=== PATIENT | male | born 1945 | race Caucasian/White ===

== ENCOUNTER 2020-08-29 08:45 | Outpatient (REF) | payer MEDICARE, BC, SELFPAY ==
[2020-08-29 10:14] LABS: Cholesterol 171 mg/dL; HDL Cholesterol 76 mg/dL; LDL Cholesterol Calculated 80 mg/dl; Triglycerides 76 mg/dL
[2020-08-29 10:35] LABS: Free T4 (Free Thyroxine) 0.75 ng/dL (0.71-1.85); Prostate Specific Antigen Scr 1.45 ng/mL (<0.05-4.0); Thyroid Stimulating Hormone 2.76 uIU/mL (0.32-4.0)
[2020-08-29 10:51] LABS: Folate 15.2 ng/mL (> or = 4.0); Vitamin B12 784 pg/mL (200-900)
== END 2020-08-29 08:46 | disposition home or self-care (01) ==
LOC: HO.LAB 08:45
PROVIDERS: PCP Internal Medicine; Visit Provider Internal Medicine
DX: R35.0 Frequency of micturition (principal); N40.1 Benign prostatic hyperplasia with lower urinary tract symptoms; E78.00 Pure hypercholesterolemia, unspecified; Z12.5 Encounter for screening for malignant neoplasm of prostate
CPT/HCPCS: 36415; 80061; 82607; 82746; 84153; 84439; 84443

== ENCOUNTER → 2020-11-07 08:04 | Outpatient (BNV) | payer MEDICARE, BC, SELFPAY | PROVIDERS: PCP Internal Medicine; Visit Provider Internal Medicine Medical Oncology | DX: D72.819 Decreased white blood cell count, unspecified (principal); D63.8 Anemia in other chronic diseases classified elsewhere; Z86.718 Personal history of other venous thrombosis and embolism; Z79.82 Long term (current) use of aspirin | CPT/HCPCS: 99213; 99214 ==

== ENCOUNTER 2021-01-23 08:03 | Outpatient (REF) | payer MEDICARE, BC, SELFPAY ==
--- NOTE | 2021-01-29 13:21 | MHC.AU.ANO ---
Adult Audiological Evaluation Date of Visit: 01/23/21 Sys Dir Used: Not Applicable Reason for Appointment: Audiologic evaluation due to increasing difficulty understanding speech, particularly when watching television. Does patient feel they have a hearing loss?: Yes If Yes, Which Ear?: Both Ears When Was Hearing Difficulty First Noticed?: Approximately 2 years ago Has hearing been tested previously?: No Hearing Handicap Inventory: HHIE SCORE: 10 Based on HHIE score, patient has: Mild to moderate perceived hearing handicap Ear History: Family History of Hearing Loss?: Yes: Parents History of Ear Wax Buildup: Both Ears Ear used on the phone: Right Ear History of occupational noise exposure?: No History: History: No Medical History: Medical History: Heart Problems, History of 3 arterial stents Allergies: Itraconazole Medication List: Ompeprozole, Proscar/Finasteride, Atorvastatin, Atenolol, Aspirin, Multivitamin Otoscopy: Right Ear: Unremarkable Left Ear: Unremarkable Tympanometry: Tympanometry performed due to: To assess integrity of the middle ear system Right Ear: Hypercompliant Middle Ear System (Type Ad) Left Ear: Hypercompliant Middle Ear System (Type Ad) Otoacoustic Emissions Frequency Range Used: 1.6-8 kHz Right Ear Results: Absent Emissions Analysis: Reduced/Absent emissions suggest cochlear dysfunction Left Ear Results: Absent Emissions Analysis: Reduced/Absent emissions suggest cochlear dysfunction Hearing Evaluation: Transducer(s) Used: Insert Earphones Bone Conduction Method: Conventional Audiometry Stimuli Used: Pure Tones Right Ear: Description of Hearing: Normal hearing threshold at 250 Hz dropping to a severe high frequency sensorineural hearing loss Left Ear: Description of Hearing: Mild dropping to profound high frequency sensorineural hearing loss Speech Recognition Threshold (SRT): Method Used: Monitored Live Voice Stimuli Used: Spondee Words Right Ear: 30 dB HL Left Ear: 30 dB HL Word Discrimination: Method: Recorded Lists Word Lists Used: NU-6 Right Ear: 96% at 70 dB HL Left Ear: 96% at 70 dB HL Interpretation of Results: With the significant bilateral high frequency hearing loss, Roverto is likely able to hear; however, he may have difficulty understanding speech, particularly when background noise is present and/or someone is speaking from more than 6 feet. Recommendations: Trial with amplification is recommended. Medical clearance from a physician is required before fitting. Hearing protection should be used when around loud noise. - If Roverto would like to pursue hearing aids, he is advised to schedule a Hearing Aid Evaluation appointment. A [employer] brochure was provided today. - Discussed and provided a handout regarding Communication Strategies to use to improve speech understanding. Audiological re-evaluation in one year. Will send a reminder Diagnosis: Primary Diagnosis: H90.3 Bilateral Sensorineural Hearing Loss Services Performed: Comprehensive Audiological Evaluation (CPT 81517) Diagnostic Otoacoustic Emissions (CPT 36120, 26+TC) Tympanometry (CPT 37688) Signature: Provider: Lucretia Bautista, CCC-A
--- NOTE | 2021-01-29 13:26 | MHC.AU.MED ---
Medical Clearance for Hearing Instrumentation Date: 01/29/21 Patient Name: Roverto Pan Date of : 1945 Primary Care Provider: Referring Provider: Francisco Garcia MD We have seen your patient on 01/29/21 and have determined that they are a candidate for amplification (See accompanying report). Specifically, they would benefit from: Hearing aid use in both ears There is a statute that addresses Medical Evaluation Requirements prior to fitting a patient with a hearing aid. According to [place] statute 265 CMR:6.03(1), (a) General. Except as provided in 265 CMR 6.03(1)(b), a hearings reporter shall not sell a hearing aid unless the prospective user has presented to the hearings reporter a written statement signed by a licensed physician that states that the patient's hearing loss has been medically evaluated and the patient may be considered a candidate for a hearing aid. The medical evaluation must have taken place within the preceding six months. Please note: Due to the [place] Statute referenced above, we cannot accept a signature other than that of a licensed physician. [employer] and PA signatures cannot be accepted. I am in agreement with the above recommendation. There is no medical contraindication for hearing instrumentation. Physician Signature Date Physician Name (Printed)
== END 2021-01-23 08:04 | disposition home or self-care (01) ==
LOC: HO.SH 08:03
PROVIDERS: Visit Provider Internal Medicine
DX: H91.90 Unspecified hearing loss, unspecified ear (principal)
CPT/HCPCS: 92557; 92567; 92588

== ENCOUNTER 2021-02-20 08:38 | Outpatient (REF) | payer MEDICARE, BC, SELFPAY ==
[2021-02-20 10:14] LABS: Prostate Specific Antigen 1.21 ng/mL (<0.05-4.0)
== END 2021-02-20 08:39 | disposition home or self-care (01) ==
LOC: HO.LAB 08:38
PROVIDERS: PCP Internal Medicine; Referring Provider Internal Medicine; Visit Provider Nurse Practitioner Family
DX: Z12.5 Encounter for screening for malignant neoplasm of prostate (principal); R97.20 Elevated prostate specific antigen [PSA]
CPT/HCPCS: 36415; 84153

== ENCOUNTER → 2021-05-01 14:34 | Outpatient (BNVA) | payer MEDICARE, BC, SELFPAY | PROVIDERS: PCP Internal Medicine; Visit Provider Internal Medicine Cardiovascular Disease | DX: I13.10 Hypertensive heart and chronic kidney disease without heart failure, with stage 1 through stage 4 chronic kidney disease, or unspecified chronic kidney disease (principal); N18.31 Chronic kidney disease, stage 3a; R94.4 Abnormal results of kidney function studies; I25.10 Atherosclerotic heart disease of native coronary artery without angina pectoris; I10 Essential (primary) hypertension; E78.00 Pure hypercholesterolemia, unspecified; Z95.5 Presence of coronary angioplasty implant and graft | CPT/HCPCS: 93005; 99212 ==

== ENCOUNTER 2021-05-05 08:47 | Outpatient (REF) | payer MEDICARE, BC, SELFPAY ==
[2021-05-05 10:29] LABS: MANUAL DIFF FLAG NO
[2021-05-05 10:43] LABS: Basophils Percent Auto 1.1 % (0-2); Eosinophils Percent Auto 1.1 % (0-4); Hematocrit 38.4 % (42-52); Hemoglobin 12.8 g/dl (14.0-18.0); Imm Gran Abs Auto 0.01 X10*3/uL (0.00-0.03); Imm Gran Pct Auto 0.3 % (0.0-0.4); Immature Retic Fraction 11.7 % (2.3-13.4); Lymphocytes Absolute Auto 1.4 X10*3/uL (1.2-4.9); Mean Corpuscular HGB Conc 33.3 g/dl (31.0-36.0); Mean Corpuscular Hemoglobin 31.8 pg (27.0-33.0); Mean Corpuscular Volume 95.3 fL (80-98); Mean Platelet Volume 10.2 fL (9.4-12.4); Monocytes Absolute Auto 0.4 X10*3/uL (0.1-1.2); Monocytes Percent Auto 10.3 % (2-11); Neutrophils Absolute Auto 1.9 X10*3/uL (2.0-8.3); Neutrophils Percent Auto 51.2 % (45-73); Platelet Count 164 X10*3/uL (160-400); Red Blood Count 4.03 X10*6/uL (4.60-5.80); Red Cell Distribution Width 14.1 % (11.0-16.0); Retic HGB Equivalent 34.5 pg (30.0-35.0); Reticulocyte Percent 1.4 % (0.5-1.8); Reticulocytes Absolute 0.057 X10*6/uL (0.026-0.095); White Blood Count 3.8 X10*3/uL (4.8-10.8)
[2021-05-05 11:02] LABS: Alanine Aminotransferase 24 U/L (0-40); Albumin Level 4.1 g/dL (3.5-5.0); Alkaline Phosphatase 100 U/L (39-117); Anion Gap 13 (12-20); Aspartate Amino Transferase 36 U/L (5-37); Bilirubin Total 1.1 mg/dL (0.0-1.0); Blood Urea Nitrogen 19 mg/dL (9-16); Calcium 9.7 mg/dL (8.4-10.2); Carbon Dioxide 27 mmol/L (22-29); Chloride 105 mmol/L (96-108); Cholesterol 162 mg/dL; Estimated Glomerular Filt Rate 52; Glucose Random 98 mg/dL (60-115); HDL Cholesterol 78 mg/dL; Iron 154 mcg/dL (45-160); LDL Cholesterol Calculated 75 mg/dl; Percent Iron Saturation 53 % (15-50); Potassium 4.3 mmol/L (3.3-5.1); Sodium 141 mmol/L (135-145); Total Iron Binding Capacity 292 mcg/dL (228-428); Total Protein 6.4 g/dL (6.5-8.0); Triglycerides 46 mg/dL; Unsaturated Iron Binding 138 ug/dL
[2021-05-05 11:24] LABS: Ferritin 67 ng/mL (20-250)
[2021-05-05 11:55] LABS: Folate 19.2 ng/mL (> or = 4.0); Vitamin B12 921 pg/mL (200-900)
== END 2021-05-05 08:48 | disposition home or self-care (01) ==
LOC: HO.LAB 08:47
PROVIDERS: Absent Provider Internal Medicine Medical Oncology; PCP Internal Medicine; Visit Provider Internal Medicine
DX: N18.31 Chronic kidney disease, stage 3a (principal); E78.00 Pure hypercholesterolemia, unspecified
CPT/HCPCS: 36415; 80053; 80061; 82607; 82728; 82746; 83540; 85025; 85045

== ENCOUNTER 2021-07-12 08:13 | Emergency (ER) | payer MEDICARE, BC, SELFPAY ==
--- NOTE | 2021-07-12 | ECG_ITS ---
Test Reason : epigastric pain Blood Pressure : / mmHG Vent. Rate : 062 BPM Atrial Rate : 062 BPM P-R Int : 212 ms QRS Dur : 130 ms QT Int : 406 ms P-R-T Axes : 085 -46 079 degrees QTc Int : 412 ms Sinus rhythm with 1st degree A-V block Left anterior fascicular block Non-specific intra-ventricular conduction block Abnormal ECG When compared with ECG of 08-JUL-2018 08:04, No significant change was found Referred By: Generic ED Physician Electronically Signed By:ERIC AIKEN MD
--- NOTE | ~2021-07-12 | CT_ITS ---
EXAMINATION: CT ANGIOGRAM OF THE CHEST WITH AND WITHOUT CONTRAST (CT PULMONARY ANGIOGRAM FOR PE) CLINICAL INFORMATION: COVID +, CP/SOB. COMPARISON: Chest x-ray of 01/12/2017 and 07/12/2021, chest CT of 05/06/2013. TECHNIQUE: Prior to contrast administration, noncontrast localization images were obtained. Subsequently, multidetector volumetric imaging was performed from the thoracic inlet to below the diaphragms following the administration of 65 mL Omnipaque 350 intravenous contrast. No contrast reaction reported Sagittal, coronal, and MIP oblique sagittal reformatted images were obtained on the CT workstation, uploaded to PACS, and reviewed. This CT examination was performed using dose optimization techniques as appropriate, variously including the following: *Automated exposure control *Adjustment of mA and/or kV according to patient size (this includes techniques or standardized protocols for targeted exams where dose is matched to indication/reason for exam; i.e. extremities or head) *Use of iterative reconstruction technique Total exam dose-length product 309 mGy-cm FINDINGS: QUALITY OF STUDY/CONTRAST BOLUS: Satisfactory. PULMONARY ARTERIES: No central or segmental pulmonary emboli. THORACIC AORTA: No aneurysm or dissection. LUNG: Nonspecific peripheral focal ground-glass opacity is noted in the left lower lobe posteriorly (series 8 image 357 through 370), measuring approximately 2.0 x 2.3 x 2.0 cm. No additional focal airspace opacities, masses or pulmonary nodules are seen. PLEURA: No pleural effusion or pneumothorax. MEDIASTINUM: Normal heart size. No pericardial effusion. No hilar or mediastinal lymphadenopathy. No evidence of septal bowing or right heart strain. Moderate coronary calcifications are noted. CHEST WALL/AXILLA: No axillary or internal mammary lymphadenopathy. There is a stable rounded left axillary lymph node measuring 0.9 cm in short axis. OSSEOUS STRUCTURES: No acute or suspicious osseous abnormality. Multilevel mild degenerative changes in the spine. UPPER ABDOMEN: Unremarkable. No reflux of contrast into the hepatic veins to suggest elevated right heart pressures. CT/CT angio chest PE protocol IMPRESSION: 1. No evidence of pulmonary embolism. 2. Nonspecific ill-defined ground-glass opacity in the left lower lobe, could be infectious or inflammatory in etiology in this patient with COVID infection. Consider follow-up chest CT in 2-3 months. 3. Moderate coronary calcifications. VTE: Negative
--- NOTE | ~2021-07-12 | XR_ITS ---
EXAMINATION: XR CHEST CLINICAL INFORMATION: Chest pain COMPARISON: Chest x-rays of 01/12/2017 and 05/30/2016 TECHNIQUE: Frontal view of the chest was obtained. FINDINGS: Cardiomediastinal silhouette is stable and normal. No abnormal tracheal deviation. The lungs are symmetrically expanded. No focal consolidation, changes of congestion, pleural effusions or pneumothorax. No acute osseous abnormality. Visualized upper abdomen is unremarkable. XR/XR chest 1V IMPRESSION: No acute intrathoracic process.
[2021-07-12 08:58] VITALS: BP 111/86; PULSE 60; RESP 13; TEMP 37.2; O2SAT 99; BMI 23.0
--- NOTE | 2021-07-12 09:35 | PC.NURSE ---
Patient alert and oriented x 3. Patient incontinent of stool and urine. Inserted Jamil cath w/ temperature probe in patient tolerated procedure already put out 750cc. oxygen sats 93%. will continue to monitor.
--- NOTE | 2021-07-12 09:37 | ED.CHESTPAIN ---
HPI - Chest Pain General Chief Complaint: Chest Pain Stated Complaint: +Covid, chest pain Time Seen by Provider: 07/12/21 09:22 Source: patient Mode of arrival: ambulatory Limitations: no limitations History of Present Illness HPI narrative: 76-year-old male with history of coronary artery disease with several stents, chronic kidney disease, high cholesterol, hypertension, anemia, GERD here with complaints of chest pressure since 05:00 which is intermittent and noted at rest with tingling in the bilateral upper extremities. Patient denies any shortness of breath. He tells me he has had a cough since Wednesday. He got tested for COVID on Wednesday evening and was positive. He is fully vaccinated with [facility] but did not receive a booster. he tells me he has had mild symptoms of only a cough since being diagnosed. He has has had some intermittent nausea and loose stools but this is a chronic problem for him. No fevers or chills. No abdominal pain or diarrhea. No vomiting. Related Data Home Medications Medication Instructions Recorded Confirmed aspirin 81 mg tablet,delayed 81 mg PO DAILY 07/23/20 05/05/21 release mometasone 50 mcg/actuation nasal 2 spray INTRANASAL DAILY 07/23/20 05/05/21 spray (Nasonex) multivitamin 1 tab PO DAILY 07/23/20 05/05/21 Previous Rx's Medication Instructions Recorded atenolol 25 mg tablet 25 mg PO DAILY #90 tab 12/18/20 finasteride 5 mg tablet (Proscar) 5 mg PO DAILY #90 tab 12/18/20 omeprazole 40 mg capsule,delayed 40 mg PO DAILY #90 cap 04/08/21 release atorvastatin 40 mg tablet (Lipitor) 40 mg PO DAILY #90 tab 04/22/21 azithromycin 250 mg tablet See Rx Instructions .ROUTE 07/12/21 .COMPLEX #6 tab Allergies Allergy/AdvReac Type Severity Reaction Status Date / Time itraconazole [ITRACONAZOLE] Allergy Severe SHORTNESS Verified 05/01/21 08:42 OF BREATH, edema, edema Review of Systems Review of Systems: Yes all other systems are reviewed and are negative Constitutional: Constitutional: Reports no additional constitutional complaints, Denies body ache(s), Denies chills, Denies fever(s), Denies headache(s) and Denies weakness Eyes: Eyes: Reports no additional eye complaints and Denies change in vision ENT: Reports system reviewed and no additional complaints, except as documented, Denies dizziness, Denies headache(s), Denies nasal congestion, Denies nasal discharge and Denies neck pain Cardiovascular: Cardiovascular: Reports no additional cardiovascular complaints, Reports chest pain, Denies leg edema and Denies dyspnea Respiratory: Respiratory: Reports no additional respiratory complaints, Reports cough and Denies dyspnea Gastrointestinal: Gastrointestinal: Reports no additional gastrointestinal complaints, Denies abdominal pain, Denies diarrhea, Denies nausea and Denies vomiting Genitourinary: Genitourinary: Denies urinary incontinence Musculoskeletal: Musculoskeletal: Reports no additional musculoskeletal complaints, Denies back pain, Denies arthralgias, Denies joint swelling, Denies neck pain, Denies numbness and Reports tingling Integumentary/Breasts: Skin/Breast: Reports system reviewed and no additional complaints, except as docu and Denies rash Neurologic: Reports system reviewed and no additional complaints, except as documented, Denies Abnormal speech present, Denies dizziness, Denies headache(s), Denies numbness, Reports tingling and Denies weakness PMFSH Past Medical History Attestation statement: The following information was validated with the patient. Source: old records reviewed and nursing notes reviewed Medical History BPH (benign prostatic hyperplasia) Chronic kidney disease (CKD) stage G3a/A1, moderately decreased glomerular filtration rate (GFR) between 45-59 mL/min/1.73 square meter and albuminuria creatinine ratio less than 30 mg/g Coronary artery disease GERD (gastroesophageal reflux disease) History of renal calculi Hypercholesterolemia Hypertension Left leg DVT Pancytopenia Right rotator cuff tear Skin cancer, basal cell Surgical History H/O basal cell carcinoma excision History of coronary artery stent placement History of hemorrhoidectomy History of prostate biopsy History of repair of rotator cuff Family History Family History Father Past heart attack S/P triple vessel bypass Mother Memory loss Social History Social History Housing: House Alcohol intake: current Alcohol intake frequency: does not drink Alcohol type: wine Patient Tobacco Use Status: Never used Tobacco Second Hand Smoke Exposure: No Use of substances other than those prescribed or required for medical reasons: No Advance Directives: No Advance Directives Information Provided: Yes service: No Current occupational status: retired Physical Exam Vital Signs: Vital Signs: Last Vital Signs Temp 98.6 F 07/12/21 14:07 Pulse 50 07/12/21 14:07 Resp 16 07/12/21 14:07 BP 132/57 L 07/12/21 14:07 Pulse Ox 98 07/12/21 14:07 Body Mass Index 23.0 Const: General: cooperative, healthy appearing, comfortable and no acute distress Orientation/consciousness: patient oriented x3 Limitations: no limitations HENMT: Head: Yes normal to inspection Ears: hearing grossly normal bilaterally General nose exam: Normal external nose present Face and sinus: Yes normal facial exam Mouth: Normal oral and palatal mucosa present Throat: Yes posterior oropharynx normal Eyes: General: appearance normal, both eyes and all related structures Pupils: Equal, round and reactive pupils present Neck: Neck: Yes normal visual inspection Chest: Chest palpation & inspection: normal inspection of the chest Resp: Effort & Inspection: normal respiratory effort Auscultation: clear to auscultation bilaterally Cardio: Rate: regular rate Rhythm: regular rhythm Peripheral pulses: Peripheral pulses 2+ throughout GI: Inspection: Yes normal to inspection Palpation (GI): Soft to palpation and nontender Auscultation: normal bowel sounds Back/Spine/Pelvis: Thoracic/Lumbar Spine: thoracic and lumbar spine normal to inspection Skin: General skin exam: no rashes or lesions noted Neuro: General: patient oriented x3, no focal motor deficits and normal sensation to monofilament Cranial nerves: Yes CN's II-XII intact bilaterally, Yes Equal, round and reactive pupils present, Yes Bilaterally intact EOM present, Yes Nystagmus not present, Yes Normal facial strength present and Yes Midline tongue present Cognition (Neuro): normal cognition Speech: No Abnormal speech present Gait exam (Neuro): Normal gait present Motor exam (neuro): 5/5 motor strength present throughout Sensory Exam: Normal double simultaneous stimulation for sensation Extrem: General: Yes normal to inspection, Yes no pedal edema and Yes no calf tenderness Course Course Course Narrative: 76-year-old male with history of coronary artery disease with 3 stents COVID positive here with complaints of intermittent chest pressure with upper extremity tingling bilaterally. On my exam the patient is not having any symptoms. He tells me that these symptoms occur at rest. atypical for ACS. however, due to COVID state consider PE, ACS, dissection. will check labs, EKG, chest x-ray, CT chest with IV contrast 1420-labs are unremarkable. EKG shows no ischemic changes. Chest x-ray shows no acute finding. CT chest is negative for PE but does show left lower lobe pneumonia. Patient has stable saturations. Plan for discharge home on oral antibiotics. Reviewed worrisome signs and symptoms of when to return to the emergency department. Comfortable discharge home. MDM - Chest Pain MDM Narrative Medical decision making narrative: PE-less likely with negative CTA, ACS-less likely with symptoms since 5am, negative troponin and EKG aortic dissection Medical Records Data Attestation: I reviewed the patient's medical records. Lab Data Attestation: I reviewed the patient's lab results. Result diagrams: 07/12/21 10:03 07/12/21 10:03 Labs: Lab Results 07/12/21 07/12/21 07/12/21 Range/Units 10:03 10:03 10:03 WBC 5.1 (4.8-10.8) X10*3/uL RBC 4.26 L (4.60-5.80) X10*6/uL Hgb 13.4 L (14.0-18.0) g/dl Hct 40.9 L (42.0-52.0) % MCV 96.0 (80.0-98.0) fL MCH 31.5 (27.0-33.0) pg MCHC 32.8 (31.0-36.0) g/dl RDW 13.8 (11.0-16.0) % Plt Count 156 L (160-400) X10*3/uL MPV 9.5 (9.4-12.4) fL Immature Gran % (Auto) 0.2 (0.0-0.4) % Neut % (Auto) 78.2 H (45-73) % Lymph % (Auto) 10.8 L (20-40) % Guthrie % (Auto) 9.6 (2-11) % Eos % (Auto) 0.6 (0-4) % Baso % (Auto) 0.6 (0-2) % Lymph # (Auto) 0.6 L (1.2-4.9) X10*3/uL Guthrie # (Auto) 0.5 (0.1-1.2) X10*3/uL Eos # (Auto) 0.0 (0.0-0.4) X10*3/uL Baso # (Auto) 0.0 (0.0-0.2) X10*3/uL Abs Immat Gran (auto) 0.01 (0.00-0.03) X10*3/uL Absolute Neuts (auto) 4.0 (2.0-8.3) x10*3/uL Absolute Nucleated RBC 0.000 (0.0-0.012) X10*3/uL Nucleated RBC % (auto) 0.0 (0.0-0.2) /100WBC PT (9.9-13.0) SEC INR (0.9-1.1) Sodium 139 (135-145) mmol/L Potassium 4.8 (3.3-5.1) mmol/L Chloride 103 (96-108) mmol/L Carbon Dioxide 28 (22-29) mmol/L Anion Gap 13 (12-20) BUN 16 (9-16) mg/dL Creatinine 1.20 (0.5-1.4) mg/dL Estim Creat Clear Calc 55.4 Estimated GFR 59 Random Glucose 105 (60-115) mg/dL Calcium 9.0 D (8.4-10.2) mg/dL Magnesium 2.3 (1.6-2.6) mg/dL Ferritin (20-250) ng/mL Total Bilirubin 0.5 (0.0-1.0) mg/dL Direct Bilirubin 0.3 (0.0-0.5) mg/dL AST 24 (5-37) U/L ALT 20 (0-40) U/L Alkaline Phosphatase 93 (39-117) U/L Lactate Dehydrogenase 195 (118-273) U/L Troponin I High Sens 5.5 (<3.5-35.0) ng/L Total Protein 6.1 L (6.5-8.0) g/dL Albumin 3.7 (3.5-5.0) g/dL Procalcitonin ng/mL 07/12/21 07/12/21 07/12/21 Range/Units 10:03 10:03 10:03 WBC (4.8-10.8) X10*3/uL RBC (4.60-5.80) X10*6/uL Hgb (14.0-18.0) g/dl Hct (42.0-52.0) % MCV (80.0-98.0) fL MCH (27.0-33.0) pg MCHC (31.0-36.0) g/dl RDW (11.0-16.0) % Plt Count (160-400) X10*3/uL MPV (9.4-12.4) fL Immature Gran % (Auto) (0.0-0.4) % Neut % (Auto) (45-73) % Lymph % (Auto) (20-40) % Guthrie % (Auto) (2-11) % Eos % (Auto) (0-4) % Baso % (Auto) (0-2) % Lymph # (Auto) (1.2-4.9) X10*3/uL Guthrie # (Auto) (0.1-1.2) X10*3/uL Eos # (Auto) (0.0-0.4) X10*3/uL Baso # (Auto) (0.0-0.2) X10*3/uL Abs Immat Gran (auto) (0.00-0.03) X10*3/uL Absolute Neuts (auto) (2.0-8.3) x10*3/uL Absolute Nucleated RBC (0.0-0.012) X10*3/uL Nucleated RBC % (auto) (0.0-0.2) /100WBC PT 11.6 (9.9-13.0) SEC INR 1.0 (0.9-1.1) Sodium (135-145) mmol/L Potassium (3.3-5.1) mmol/L Chloride (96-108) mmol/L Carbon Dioxide (22-29) mmol/L Anion Gap (12-20) BUN (9-16) mg/dL Creatinine (0.5-1.4) mg/dL Estim Creat Clear Calc Estimated GFR Random Glucose (60-115) mg/dL Calcium (8.4-10.2) mg/dL Magnesium (1.6-2.6) mg/dL Ferritin 128 (20-250) ng/mL Total Bilirubin (0.0-1.0) mg/dL Direct Bilirubin (0.0-0.5) mg/dL AST (5-37) U/L ALT (0-40) U/L Alkaline Phosphatase (39-117) U/L Lactate Dehydrogenase (118-273) U/L Troponin I High Sens (<3.5-35.0) ng/L Total Protein (6.5-8.0) g/dL Albumin (3.5-5.0) g/dL Procalcitonin 0.03 ng/mL Imaging Data Chest x-ray: Attestation: I personally reviewed and interpreted this imaging study as follows: Radiologist's impression: [address] [address] XRay Report Signed Patient: Roverto Pan MR#: [id number] : 1945 Acct:[id number] Age/Sex: 76 / M ADM Date: 07/12/21 Loc: .ED Attending Dr: Ordering Physician: Heavenly Ha NP Date of Service: 07/12/21 Procedure(s): XR chest 1V Accession Number(s): [id number] cc: Heavenly Ha NP~ EXAMINATION: XR CHEST CLINICAL INFORMATION: Chest pain COMPARISON: Chest x-rays of 01/12/2017 and 05/30/2016 TECHNIQUE: Frontal view of the chest was obtained. FINDINGS: Cardiomediastinal silhouette is stable and normal. No abnormal tracheal deviation. The lungs are symmetrically expanded. No focal consolidation, changes of congestion, pleural effusions or pneumothorax. No acute osseous abnormality. Visualized upper abdomen is unremarkable. XR/XR chest 1V IMPRESSION: No acute intrathoracic process. ? CT scan - chest: Attestation: I personally reviewed and interpreted this imaging study as follows: Radiologist's impression: IMPRESSION: 1. No evidence of pulmonary embolism. 2. Nonspecific ill-defined ground-glass opacity in the left lower lobe, could be infectious or inflammatory in etiology in this patient with COVID infection. Consider follow-up chest CT in 2-3 months. 3. Moderate coronary calcifications. ? ECG Data ECG #1: Attestation: I personally reviewed and interpreted this ECG as follows: ECG interpretation date: 07/12/21 ECG interpretation time: 08:31 Interpretation: sinus rhythm with a first-degree AV block, normal QRS, normal QT, T-wave inversions in aVL. Discharge Plan Discharge Clinical Impression: Pneumonia Patient Disposition: Home, Self-Care Instructions: Community Acquired Pneumonia (ED) Additional Instructions: Your EKG and heart levels look normal. Your CT scan showed no evidence of a blood clot. You do have a pneumonia and your left lung base Increase fluids, rest Return for increasing shortness of breath or chest pain. Follow-up with your primary care doctor once you for covered from [employer] Prescriptions: New azithromycin 250 mg tablet See Rx Instructions .ROUTE .COMPLEX Qty: 6 RF: 0 No Action atenolol 25 mg tablet 25 mg PO DAILY Qty: 90 RF: 3 finasteride [Proscar] 5 mg tablet 5 mg PO DAILY Qty: 90 RF: 3 omeprazole 40 mg capsule,delayed release(DR/EC) 40 mg PO DAILY Qty: 90 RF: 2 atorvastatin [Lipitor] 40 mg tablet 40 mg PO DAILY Qty: 90 RF: 2 mometasone [Nasonex] 50 mcg/actuation spray,non-aerosol 2 spray intranasal DAILY RF: 0 multivitamin Tablet 1 tab PO DAILY RF: 0 aspirin 81 mg tablet,delayed release (DR/EC) 81 mg PO DAILY RF: 0 Referrals: Po,Francisco Tucker MD [Primary Care Provider] - 2 days Interventions: ED Discharge Assessment Last Done: 07/12/21 14:10 Discharge Date/Time: 07/12/21 14:10
[2021-07-12 10:08] LABS: MANUAL DIFF FLAG NO
[2021-07-12 10:14] LABS: Basophils Percent Auto 0.6 % (0-2); Eosinophils Percent Auto 0.6 % (0-4); Hematocrit 40.9 % (42.0-52.0); Hemoglobin 13.4 g/dl (14.0-18.0); Imm Gran Abs Auto 0.01 X10*3/uL (0.00-0.03); Imm Gran Pct Auto 0.2 % (0.0-0.4); Lymphocytes Absolute Auto 0.6 X10*3/uL (1.2-4.9); Lymphocytes Percent Auto 10.8 % (20-40); Mean Corpuscular HGB Conc 32.8 g/dl (31.0-36.0); Mean Corpuscular Hemoglobin 31.5 pg (27.0-33.0); Mean Platelet Volume 9.5 fL (9.4-12.4); Monocytes Absolute Auto 0.5 X10*3/uL (0.1-1.2); Monocytes Percent Auto 9.6 % (2-11); Neutrophils Percent Auto 78.2 % (45-73); Platelet Count 156 X10*3/uL (160-400); Red Blood Count 4.26 X10*6/uL (4.60-5.80); Red Cell Distribution Width 13.8 % (11.0-16.0); White Blood Count 5.1 X10*3/uL (4.8-10.8)
[2021-07-12 10:18] VITALS: BP 156/69; PULSE 56; RESP 18; O2SAT 99
[2021-07-12 10:22] LABS: Prothrombin Time 11.6 SEC (9.9-13.0)
[2021-07-12 10:28] LABS: Alanine Aminotransferase 20 U/L (0-40); Albumin Level 3.7 g/dL (3.5-5.0); Alkaline Phosphatase 93 U/L (39-117); Anion Gap 13 (12-20); Aspartate Amino Transferase 24 U/L (5-37); Bilirubin Direct 0.3 mg/dL (0.0-0.5); Bilirubin Total 0.5 mg/dL (0.0-1.0); Blood Urea Nitrogen 16 mg/dL (9-16); Carbon Dioxide 28 mmol/L (22-29); Chloride 103 mmol/L (96-108); Creatinine Clr Calc Pharmacy 55.4; Estimated Glomerular Filt Rate 59; Glucose Random 105 mg/dL (60-115); Lactate Dehydrogenase 195 U/L (118-273); Magnesium 2.3 mg/dL (1.6-2.6); Potassium 4.8 mmol/L (3.3-5.1); Sodium 139 mmol/L (135-145); Total Protein 6.1 g/dL (6.5-8.0)
[2021-07-12 10:30] LABS: Troponin-I High Sensitivity 5.5 ng/L (<3.5-35.0)
[2021-07-12 10:47] LABS: Ferritin 128 ng/mL (20-250)
[2021-07-12] MEDS: Magnesium Hydrox/Alum Hydrox 30 ML ORAL.SUSP PO (10:50)
[2021-07-12] MEDS: Lidocaine HCl Viscous 2 % 15 ML SOLUTION MUCOUS MEM (10:50)
[2021-07-12 11:21] LABS: Procalcitonin 0.03 ng/mL
[2021-07-12 12:36] VITALS: BP 136/58; PULSE 55; RESP 11; TEMP 36.8; O2SAT 98
[2021-07-12] MEDS: iohexoL 350 MG/ML 100 ML INFUS..BTL 65 ML IV (12:39)
[2021-07-12 14:07] VITALS: BP 132/57; PULSE 50; RESP 16; TEMP 37; O2SAT 98
== END 2021-07-12 14:10 | disposition home or self-care (01) ==
PROVIDERS: Nurse Practitioner Family; Emergency Provider Emergency Medicine Emergency Medical Services; PCP Internal Medicine
DX: J18.9 Pneumonia, unspecified organism (principal); R07.9 Chest pain, unspecified; I10 Essential (primary) hypertension; Z86.16 Personal history of COVID-19; Z86.718 Personal history of other venous thrombosis and embolism
CPT/HCPCS: 36415; 71045; 71275; 80048; 80076; 82728; 83615; 83735; 84145; 84484; 85025; 85610; 93005; 99284; 99285; Q9967

== ENCOUNTER 2021-08-21 17:46 | Outpatient (REF) | payer MEDICARE, BC, SELFPAY ==
--- NOTE | ~2021-08-21 | US_ITS ---
EXAMINATION: US VENOUS ULTRASOUND WITH DOPPLER LOWER EXTREMITY, LEFT CLINICAL INFORMATION: M79.89 - Other specified soft tissue disorders COMPARISON: 01/28/2020 TECHNIQUE: Ultrasound of the deep veins is performed from the hip to the calf with compression sonography and color and pulse Doppler assessment. Spectral analysis with color-flow imaging is performed. FINDINGS: There is normal venous compression and respiratory variation and augmented flow. The visualized common femoral vein, superficial femoral vein, profunda femoral vein, popliteal vein, and the trifurcation region shows no evidence of deep venous thrombosis. If the patient's symptoms persist, followup ultrasound in 5 days 7 days might be of value to exclude proximal propagation from a non-visualized calf vein. US/US venous duplex LE LT IMPRESSION: No DVT demonstrated in the left lower extremity.
[2021-08-21 17:51] LABS: MANUAL DIFF FLAG NO
[2021-08-21 18:09] LABS: D Dimer High Sensitivity 211 NG/ML
[2021-08-21 18:19] LABS: Alanine Aminotransferase 33 U/L (0-40); Albumin Level 4.2 g/dL (3.5-5.0); Alkaline Phosphatase 107 U/L (39-117); Anion Gap 9 (12-20); Aspartate Amino Transferase 31 U/L (5-37); Bilirubin Total 0.7 mg/dL (0.0-1.0); Blood Urea Nitrogen 17 mg/dL (9-16); Calcium 9.6 mg/dL (8.4-10.2); Carbon Dioxide 31 mmol/L (22-29); Chloride 103 mmol/L (96-108); Estimated Glomerular Filt Rate 47; Glucose Random 102 mg/dL (60-115); Potassium 3.9 mmol/L (3.3-5.1); Sodium 139 mmol/L (135-145)
[2021-08-21 18:21] LABS: Basophils Percent Auto 0.6 % (0-2); Eosinophils Percent Auto 0.6 % (0-4); Hemoglobin 12.8 g/dl (14.0-18.0); Imm Gran Abs Auto 0.02 X10*3/uL (0.00-0.03); Imm Gran Pct Auto 0.3 % (0.0-0.4); Lymphocytes Absolute Auto 1.8 X10*3/uL (1.2-4.9); Lymphocytes Percent Auto 27.8 % (20-40); Mean Corpuscular HGB Conc 33.7 g/dl (31.0-36.0); Mean Corpuscular Hemoglobin 32.2 pg (27.0-33.0); Mean Corpuscular Volume 95.7 fL (80.0-98.0); Mean Platelet Volume 9.6 fL (9.4-12.4); Monocytes Absolute Auto 0.4 X10*3/uL (0.1-1.2); Monocytes Percent Auto 6.7 % (2-11); Neutrophils Absolute Auto 4.1 x10*3/uL (2.0-8.3); Platelet Count 170 X10*3/uL (160-400); Red Blood Count 3.97 X10*6/uL (4.60-5.80); Red Cell Distribution Width 13.9 % (11.0-16.0); White Blood Count 6.4 X10*3/uL (4.8-10.8)
== END 2021-08-21 17:47 | disposition home or self-care (01) ==
LOC: HO.LAB 17:46
PROVIDERS: PCP Internal Medicine; Visit Provider Family Medicine
DX: Z00.00 Encounter for general adult medical examination without abnormal findings (principal); M79.89 Other specified soft tissue disorders; R60.0 Localized edema
CPT/HCPCS: 36415; 80053; 85025; 85379; 93971

== ENCOUNTER 2021-11-07 09:25 | Outpatient (REF) | payer MEDICARE, BC, SELFPAY ==
[2021-11-07 10:07] LABS: MANUAL DIFF FLAG NO
[2021-11-07 10:29] LABS: Eosinophils Absolute Auto 0.1 X10*3/uL (0.0-0.4); Eosinophils Percent Auto 1.5 % (0-4); Hematocrit 39.1 % (42.0-52.0); Hemoglobin 12.8 g/dl (14.0-18.0); Imm Gran Abs Auto 0.01 X10*3/uL (0.00-0.03); Imm Gran Pct Auto 0.3 % (0.0-0.4); Lymphocytes Absolute Auto 1.2 X10*3/uL (1.2-4.9); Lymphocytes Percent Auto 30.5 % (20-40); Mean Corpuscular HGB Conc 32.7 g/dl (31.0-36.0); Mean Corpuscular Hemoglobin 31.8 pg (27.0-33.0); Mean Platelet Volume 9.9 fL (9.4-12.4); Monocytes Absolute Auto 0.4 X10*3/uL (0.1-1.2); Monocytes Percent Auto 10.3 % (2-11); Neutrophils Absolute Auto 2.3 x10*3/uL (2.0-8.3); Neutrophils Percent Auto 56.4 % (45-73); Platelet Count 146 X10*3/uL (160-400); Red Blood Count 4.03 X10*6/uL (4.60-5.80); Red Cell Distribution Width 13.8 % (11.0-16.0)
[2021-11-07 11:06] LABS: Alanine Aminotransferase 24 U/L (0-40); Alkaline Phosphatase 99 U/L (39-117); Anion Gap 10 (12-20); Aspartate Amino Transferase 24 U/L (5-37); Bilirubin Total 1.1 mg/dL (0.0-1.0); Blood Urea Nitrogen 19 mg/dL (9-16); Calcium 9.7 mg/dL (8.4-10.2); Carbon Dioxide 30 mmol/L (22-29); Chloride 104 mmol/L (96-108); Estimated Glomerular Filt Rate 57; Glucose Random 95 mg/dL (60-115); Potassium 4.3 mmol/L (3.3-5.1); Sodium 140 mmol/L (135-145); Total Protein 6.5 g/dL (6.5-8.0)
[2021-11-07 11:15] LABS: Ferritin 36 ng/mL (20-250)
== END 2021-11-07 09:26 | disposition home or self-care (01) ==
LOC: HO.LAB 09:25
PROVIDERS: PCP Internal Medicine; Visit Provider Internal Medicine
DX: E78.00 Pure hypercholesterolemia, unspecified (principal)
CPT/HCPCS: 36415; 80053; 82728; 85025

== ENCOUNTER 2021-11-10 15:17 | Outpatient (REF) | payer MEDICARE, BC, SELFPAY ==
--- NOTE | ~2021-11-10 | CT_ITS ---
EXAMINATION: CT ABDOMEN AND PELVIS WITH CONTRAST CLINICAL INFORMATION: Left lower quadrant pain COMPARISON: None TECHNIQUE: Multidetector volumetric images were obtained from the superior aspect of the liver through the pubic symphysis following administration 85 mL of Omnipaque 350 intravenous contrast. Sagittal and coronal reformatted images were obtained on the technologist's workstation. Oral contrast: Yes This CT examination was performed using dose optimization techniques as appropriate, variously including the following: *Automated exposure control *Adjustment of mA and/or kV according to patient size (this includes techniques or standardized protocols for targeted exams where dose is matched to indication/reason for exam; i.e. extremities or head) *Use of iterative reconstruction technique DLP: 293 mGy-cm FINDINGS: LUNG BASES: The visualized lung bases are unremarkable. LIVER, GALLBLADDER, AND BILIARY TREE: The liver is normal in size, shape, and attenuation. No focal hepatic lesion or biliary ductal dilatation is present. The gallbladder is unremarkable with no evidence of radiopaque gallstones, gallbladder wall thickening, or obvious pericholecystic inflammatory changes. PANCREAS: Unremarkable. SPLEEN: Unremarkable. ADRENAL GLANDS: Unremarkable. KIDNEYS AND URETERS: The kidneys are normal in size, shape, and attenuation. No hydronephrosis, hydroureter, or calculi seen. No perinephric stranding. BLADDER: The bladder is not optimally distended. It is difficult to exclude mild diffuse bladder wall thickening. GASTROINTESTINAL TRACT: There is question of mild colitis of the distal colon versus changes due to underdistention. Small and large bowel is otherwise unremarkable. The appendix is unremarkable. The stomach is not optimally distended. ABDOMINAL WALL: No significant hernia is appreciated. LYMPH NODES: Normal. VASCULAR: Unremarkable. PELVIC VISCERA: Unremarkable. OSSEOUS STRUCTURES: There are degenerative changes of the spine and hip joints. There is curvature of the lumbar spine to the left. There is mild anterior subluxation of L4 with respect L5 probably related to facet arthritis. CT/CT abdomen pelvis w con IMPRESSION: Question mild colitis of the distal colon versus changes due to underdistention. The bladder is not optimally distended and it is difficult to exclude mild bladder wall thickening. Fleischner guidelines were followed.
[2021-11-10] MEDS: iohexoL 350 MG/ML 100 ML INFUS..BTL 85 ML IV (15:51)
== END 2021-11-10 15:18 | disposition home or self-care (01) ==
LOC: HO.CT 15:17
PROVIDERS: Visit Provider Internal Medicine
DX: R10.32 Left lower quadrant pain (principal)
CPT/HCPCS: 74177; Q9967

== ENCOUNTER 2022-04-01 12:14 | Outpatient (REF) | payer MEDICARE, BC, SELFPAY ==
[2022-04-01 14:26] LABS: Prostate Specific Antigen 1.38 ng/mL (<0.05-4.0)
== END 2022-04-01 12:15 | disposition home or self-care (01) ==
LOC: HO.LAB 12:14
PROVIDERS: PCP Internal Medicine; Visit Provider Urology
DX: Z12.5 Encounter for screening for malignant neoplasm of prostate (principal); N40.1 Benign prostatic hyperplasia with lower urinary tract symptoms
CPT/HCPCS: 36415; 84153

== ENCOUNTER → 2022-04-30 08:57 | Outpatient (BNVA) | payer MEDICARE, BC, SELFPAY | PROVIDERS: PCP Internal Medicine; Referring Provider Internal Medicine; Visit Provider Internal Medicine Cardiovascular Disease | DX: I25.10 Atherosclerotic heart disease of native coronary artery without angina pectoris (principal); E78.5 Hyperlipidemia, unspecified; Z86.79 Personal history of other diseases of the circulatory system | CPT/HCPCS: 93005; 99212 ==

== ENCOUNTER 2022-05-06 08:41 | Outpatient (REF) | payer MEDICARE, BC, SELFPAY ==
[2022-05-06 09:57] LABS: Cholesterol 168 mg/dL; HDL Cholesterol 71 mg/dL; LDL Cholesterol Calculated 85 mg/dl; Triglycerides 61 mg/dL
[2022-05-08 14:52] LABS: CRP High Sensitivity 0.8 mg/L
== END 2022-05-06 08:42 | disposition home or self-care (01) ==
LOC: HO.LAB 08:41
PROVIDERS: PCP Internal Medicine; Visit Provider Internal Medicine Cardiovascular Disease
DX: I25.10 Atherosclerotic heart disease of native coronary artery without angina pectoris (principal); E78.5 Hyperlipidemia, unspecified
CPT/HCPCS: 36415; 80061; 86141

== ENCOUNTER 2022-06-24 11:19 | Outpatient (REF) | payer MEDICARE, BC, SELFPAY ==
--- NOTE | 2022-06-24 13:05 | MHC.AU.MED ---
Medical Clearance for Hearing Instrumentation Date: 06/24/22 Patient Name: Roverto Pan Date of : 1945 Primary Care Provider: Francisco Garcia MD We have seen your patient on 06/24/22 and have determined that they are a candidate for amplification (See accompanying report). Specifically, they would benefit from: Hearing aid use in both ears There is a statute that addresses Medical Evaluation Requirements prior to fitting a patient with a hearing aid. According to [place] statute 265 CMR:6.03(1), (a) General. Except as provided in 265 CMR 6.03(1)(b), a hr assistant shall not sell a hearing aid unless the prospective user has presented to the hr assistant a written statement signed by a licensed physician that states that the patient's hearing loss has been medically evaluated and the patient may be considered a candidate for a hearing aid. The medical evaluation must have taken place within the preceding six months. Please note: Due to the [place] Statute referenced above, we cannot accept a signature other than that of a licensed physician. LOGGING RAFTER LABORER and PA signatures cannot be accepted. I am in agreement with the above recommendation. There is no medical contraindication for hearing instrumentation. Physician Signature Date Physician Name (Printed)
== END 2022-06-24 11:20 | disposition home or self-care (01) ==
LOC: HO.SH 11:19
PROVIDERS: Visit Provider Internal Medicine
DX: H90.3 Sensorineural hearing loss, bilateral (principal)
CPT/HCPCS: 92557; 92567

== ENCOUNTER 2022-08-31 11:03 | Outpatient (REF) | payer SELFPAY ==
--- NOTE | 2022-08-31 14:55 | MHC.AU.HA1 ---
Hearing Aid Evaluation Date of Visit: 08/31/22 Historical Information: Description of Hearing: Normal hearing thresholds at 250 Hz, dropping to a severe high frequency sensorineural hearing loss with the left ear being slightly poorer than the right ear at 9981-4567 Hz. Current personal amplification information, if applicable: None Summary: Roverto has indicated he has been experiencing increased difficulty understanding speech. 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 Discussed realistic expectations of the hearing aids, the need for every day all day use, and the different levels of technology. Advised premium level technology with telecoil which may be available at different venues. Patient would like to proceed with purchase of binaural aids. Hearing Aid Prescription: Based on the individual?s shared listening needs, communication environments, dexterity, desire for connectivity, and personal preferences, the following prescription for amplification has been made: Right ear: Make, Model, Color: Phonak Audeo L 90-RT Sand Beige Battery Size: Rechargeable Make Up Artist/Slim Tube: #2 M Type of Earmold/Dome/CShell/SlimTip: Open Dome Left ear:Left ear prescription to be same as Right Hearing Aid above: Make, Model, Color: Phonak Audeo L 90-RT Sand Beige Battery Size: Rechargeable Make Up Artist/Slim Tube: #2 M Type of Earmold/Dome/CShell/SlimTip: Open Dome Plan of Care: Patient wishes to purchase hearing aids as prescribed Action Taken/Action Needed:Hearing Instrument Fitting to be scheduled when materials arrive Comments: Medical Clearance in chart Primary Diagnosis: H90.3 Bilateral Sensorineural Hearing Loss Signature:Provider: Fransico Bautista, [facility]
== END 2022-08-31 11:04 | disposition home or self-care (01) ==
LOC: HO.HAP 11:03
PROVIDERS: Visit Provider Internal Medicine
DX: Z46.1 Encounter for fitting and adjustment of hearing aid (principal); H90.3 Sensorineural hearing loss, bilateral
CPT/HCPCS: 92590

== ENCOUNTER 2022-09-14 09:28 | Outpatient (REF) | payer SELFPAY | END 2022-09-14 09:29 | disposition home or self-care (01) | LOC: HO.HAP 09:28 | PROVIDERS: Visit Provider Internal Medicine | DX: Z46.1 Encounter for fitting and adjustment of hearing aid (principal); H90.3 Sensorineural hearing loss, bilateral | CPT/HCPCS: V5262; V5299 ==

== ENCOUNTER 2022-09-14 10:59 | Outpatient (REF) | payer SELFPAY | END 2022-09-14 11:00 | disposition home or self-care (01) | LOC: HO.HAP 10:59 | PROVIDERS: Visit Provider Internal Medicine | DX: Z46.1 Encounter for fitting and adjustment of hearing aid (principal); H90.3 Sensorineural hearing loss, bilateral; H61.21 Impacted cerumen, right ear | CPT/HCPCS: 92700 ==

== ENCOUNTER 2022-09-25 12:24 | Outpatient (REF) | payer SELFPAY | END 2022-09-25 12:25 | disposition home or self-care (01) | LOC: HO.HAP 12:24 | PROVIDERS: Visit Provider Internal Medicine | DX: Z13.89 Encounter for screening for other disorder (principal) ==

== ENCOUNTER 2022-10-30 09:06 | Outpatient (REF) | payer MEDICARE, BC, SELFPAY ==
[2022-10-30 09:29] LABS: MANUAL DIFF FLAG NO
[2022-10-30 11:10] LABS: Basophils Absolute Auto 0.1 X10*3/uL (0.0-0.2); Basophils Percent Auto 1.3 % (0-2); Eosinophils Percent Auto 0.8 % (0-4); Hematocrit 38.7 % (42.0-52.0); Hemoglobin 12.7 g/dl (14.0-18.0); Immature Retic Fraction 9.1 % (2.3-13.4); Lymphocytes Absolute Auto 1.4 X10*3/uL (1.2-4.9); Lymphocytes Percent Auto 29.6 % (20-40); Mean Corpuscular HGB Conc 32.8 g/dl (31.0-36.0); Mean Corpuscular Hemoglobin 31.2 pg (27.0-33.0); Mean Corpuscular Volume 95.1 fL (80.0-98.0); Mean Platelet Volume 9.4 fL (9.4-12.4); Monocytes Absolute Auto 0.4 X10*3/uL (0.1-1.2); Monocytes Percent Auto 8.5 % (2-11); Neutrophils Absolute Auto 2.9 x10*3/uL (2.0-8.3); Neutrophils Percent Auto 59.8 % (45-73); Platelet Count 222 X10*3/uL (160-400); Red Blood Count 4.07 X10*6/uL (4.60-5.80); Red Cell Distribution Width 13.8 % (11.0-16.0); Retic HGB Equivalent 36.5 pg (30.0-35.0); Reticulocyte Percent 1.5 % (0.5-1.8); Reticulocytes Absolute 0.062 X10*6/uL (0.026-0.095); White Blood Count 4.8 X10*3/uL (4.8-10.8)
[2022-10-30 12:53] LABS: Alanine Aminotransferase 24 U/L (0-40); Albumin Level 3.8 g/dL (3.5-5.0); Alkaline Phosphatase 106 U/L (39-117); Anion Gap 12 (12-20); Aspartate Amino Transferase 26 U/L (5-37); Blood Urea Nitrogen 19 mg/dL (9-16); Carbon Dioxide 30 mmol/L (22-29); Chloride 104 mmol/L (96-108); Cholesterol 120 mg/dL; Estimated Glomerular Filt Rate 50; Glucose Random 84 mg/dL (60-115); HDL Cholesterol 60 mg/dL; Iron 124 mcg/dL (45-160); LDL Cholesterol Calculated 51 mg/dl; Percent Iron Saturation 48 % (15-50); Sodium 141 mmol/L (135-145); Total Iron Binding Capacity 261 mcg/dL (228-428); Total Protein 6.4 g/dL (6.5-8.0); Triglycerides 49 mg/dL; Unsaturated Iron Binding 137 ug/dL
[2022-10-30 13:07] LABS: Ferritin 69 ng/mL (20-250); Folate 15.9 ng/mL (> or = 4.0); Free T4 (Free Thyroxine) 0.89 ng/dL (0.71-1.85); Thyroid Stimulating Hormone 2.01 uIU/mL (0.32-4.0); Vitamin B12 972 pg/mL (200-900)
== END 2022-10-30 09:07 | disposition home or self-care (01) ==
LOC: HO.LAB 09:06
PROVIDERS: PCP Internal Medicine; Visit Provider Internal Medicine
DX: I25.10 Atherosclerotic heart disease of native coronary artery without angina pectoris (principal); E78.00 Pure hypercholesterolemia, unspecified; I10 Essential (primary) hypertension; D64.9 Anemia, unspecified
CPT/HCPCS: 36415; 80053; 80061; 82607; 82728; 82746; 83540; 84439; 84443; 85025; 85045

== ENCOUNTER 2022-12-08 09:50 | Outpatient (REF) | payer SELFPAY | END 2022-12-08 09:51 | disposition home or self-care (01) | LOC: HO.HAP 09:50 | PROVIDERS: Visit Provider Internal Medicine | DX: Z46.1 Encounter for fitting and adjustment of hearing aid (principal); H90.3 Sensorineural hearing loss, bilateral | CPT/HCPCS: V5267 ==

== ENCOUNTER 2022-12-08 10:32 | Outpatient (REF) | payer MEDICARE, BC, SELFPAY ==
[2022-12-10 14:54] LABS: Gliadin Deamidated IgA Ab <1.0 U/mL; Gliadin Deamidated IgG Ab <1.0 U/mL; Transglutaminase Ab IgG <1.0 U/mL; Transglutaminase IgA <1.0 U/mL
[2022-12-10 15:43] LABS: Immunoglobulin A 165 mg/dL (70-320)
[2022-12-14 11:14] LABS: Endomysial IgA Antibody Negative (Negative)
== END 2022-12-08 10:33 | disposition home or self-care (01) ==
LOC: HO.LAB 10:32
PROVIDERS: PCP Internal Medicine; Visit Provider Internal Medicine
DX: R19.4 Change in bowel habit (principal)
CPT/HCPCS: 36415; 82784; 86231; 86258; 86364

== ENCOUNTER 2023-01-26 09:26 | Outpatient (REF) | payer MEDICARE, BC, SELFPAY ==
--- NOTE | ~2023-01-26 | XR_ITS ---
EXAMINATION: XR THORACOLUMBAR SPINE CLINICAL INFORMATION: M79.641 - Pain in right hand COMPARISON: Radiographs cervical spine 01/26/2023, CT chest 07/12/2021. TECHNIQUE: AP and lateral views of the thoracic spine are obtained. FINDINGS: There is normal thoracic segmentation with 12 rib-bearing thoracic vertebrae of normal height and normal thoracic kyphosis. Again, there is gentle levocurvature upper thoracic spine and gentle dextrocurvature mid to lower thoracic spine similar to the CT 202. There is no vertebral compression, spondylolisthesis, destructive process, or paraspinal soft tissue swelling. There are degenerative disc changes T1-T2 better seen on lateral view cervical spine. There are no erosive changes. XR/XR thoracic spine 2V IMPRESSION: - Gentle S-shaped thoracolumbar scoliosis similar to CT 202. - No vertebral compression, spondylolisthesis, destructive process.
--- NOTE | ~2023-01-26 | XR_ITS ---
EXAMINATION: XR CERVICAL SPINE CLINICAL INFORMATION: M79.641 - Pain in right hand COMPARISON: None available. TECHNIQUE: The cervical spine is imaged in 4 views. FINDINGS: There is mild rightward tilting cervical spine on frontal views. No bony destructive process or prevertebral soft tissue swelling. No focal vertebral compression. Borderline loss of height at C5. Multilevel degenerative disc changes are present with disc narrowing and vertebral spurring C3-C4 through C6-C7 and at T1-T2. There are bulky anterior osteophytes at C4-C6. There are variable mild degenerative facet changes greatest lower cervical spine. There is borderline retrolisthesis C4-C5 and at C5-C6 both of under 2 mm. There is borderline anterior spondylolisthesis of under 2 mm at C7-T1. No perched facet. XR/XR cervical spine 2V IMPRESSION: - Multilevel degenerative disc and degenerative facet changes. - Borderline retrolisthesis C4-C5 and C5-C6. Borderline anterior spondylolisthesis C7-T1. - No destructive process or prevertebral soft tissue swelling. - Borderline loss of height at C5
--- NOTE | ~2023-01-26 | XR_ITS ---
EXAMINATION: XR HAND, RIGHT XR HAND, LEFT CLINICAL INFORMATION: Pain in hands. COMPARISON: Radiographs right hand 01/23/2011. TECHNIQUE: Each hand is imaged in 3 views. There are a total of 6 views. FINDINGS: Right: No fracture, dislocation, destructive process. No periarticular demineralization. The ulnar variance is neutral. The carpus shows no significant joint narrowing and no erosive change or chondrocalcinosis. Mild narrowing first MCP. Mild degenerative changes DIP joints. No erosive change. Left: No fracture, dislocation, destructive process. No periarticular demineralization. The ulnar variance is neutral. The carpus shows narrowing of the proximal radial carpal compartment. No erosive change or chondrocalcinosis.. MCP joints show no focal narrowing or erosive change. Mild degenerative changes DIP joints. No erosive change. XR/XR hand LT 2V IMPRESSION: -Bilateral: degenerative changes DIP joints. -Right: Narrowing first MCP joint. No erosive change. -Left: Narrowing left proximal radial carpal compartment. No erosive change.
--- NOTE | ~2023-01-26 | XR_ITS ---
EXAMINATION: XR HAND, RIGHT XR HAND, LEFT CLINICAL INFORMATION: Pain in hands. COMPARISON: Radiographs right hand 01/23/2011. TECHNIQUE: Each hand is imaged in 3 views. There are a total of 6 views. FINDINGS: Right: No fracture, dislocation, destructive process. No periarticular demineralization. The ulnar variance is neutral. The carpus shows no significant joint narrowing and no erosive change or chondrocalcinosis. Mild narrowing first MCP. Mild degenerative changes DIP joints. No erosive change. Left: No fracture, dislocation, destructive process. No periarticular demineralization. The ulnar variance is neutral. The carpus shows narrowing of the proximal radial carpal compartment. No erosive change or chondrocalcinosis.. MCP joints show no focal narrowing or erosive change. Mild degenerative changes DIP joints. No erosive change. XR/XR hand RT 2V IMPRESSION: -Bilateral: degenerative changes DIP joints. -Right: Narrowing first MCP joint. No erosive change. -Left: Narrowing left proximal radial carpal compartment. No erosive change.
== END 2023-01-26 09:27 | disposition home or self-care (01) ==
LOC: HO.XRAY 09:26
PROVIDERS: PCP Internal Medicine; Visit Provider Internal Medicine
DX: M79.642 Pain in left hand (principal); M79.641 Pain in right hand; M54.6 Pain in thoracic spine; M54.2 Cervicalgia
CPT/HCPCS: 72040; 72070; 73120

== ENCOUNTER 2023-02-19 09:28 | Outpatient (REF) | payer SELFPAY ==
--- NOTE | 2023-02-19 11:45 | MHC.AU.CE1 ---
Cerumen Removal- Right Ear Date of Visit: 02/19/23 Medical Conditions: No Conditions of Concern for Cerumen Removal Medications: No Medications of Concern for Cerumen Removal Procedure: Right Ear: Prior to Removal: Significant Cerumen Present Outcome of Procedure: Cerumen was easily removed. Most cerumen was removed. Tympanic membrane is now visible. Other: Roverto reported over the past month he has noticed a significant increase in feedback from his right hearing aid. Significant cerumen noted, likely causing excessive feedback. Upon completion of cerumen removal, little to no feedback noted in office. Recommendations: Follow-up as needed Diagnosis Code(s): Primary Diagnosis: H90.3 Bilateral Sensorineural Hearing Loss Services Performed: Cerumen Removal (CPT 20500) One Ear Signature: Provider: Fransico Yoon, [facility]
== END 2023-02-19 09:29 | disposition home or self-care (01) ==
LOC: HO.HAP 09:28
PROVIDERS: Visit Provider Internal Medicine
DX: Z46.1 Encounter for fitting and adjustment of hearing aid (principal); H90.3 Sensorineural hearing loss, bilateral
CPT/HCPCS: 92700

== ENCOUNTER 2023-02-19 09:48 | Outpatient (REF) | payer SELFPAY | END 2023-02-19 09:49 | disposition home or self-care (01) | LOC: HO.HAP 09:48 | PROVIDERS: Visit Provider Internal Medicine | DX: Z13.89 Encounter for screening for other disorder (principal) ==

== ENCOUNTER 2023-03-11 09:30 | Outpatient (RCR) | payer MEDICARE, BC, SELFPAY ==
--- NOTE | 2023-02-03 10:42 | MHC.OT.EP ---
[address] [phone] Occupational Therapy Plan of Care Patient Name: Roverto Pan Date of Evaluation: 02/03/23 Diagnosis: Pain in bilateral hands, trigger finger right 4th digit Pain Location: Pain right hand: 3/10 Pain left hand: 2/10 Right 4th digit: 3/10 'locking' Pain Score: 3 Pain Scale Used: Numeric (0 - 10) Aggravating Factors: Carrying weights; repetitive use such as opening plastic packages Alleviating Factors: None reported Assessment: Pt is a 77 y/o male presenting today for OT evaluation. Pt reports new onset of bilateral hand pain and stiffness with triggering in right 4th digit. He believes this was exacerbated by doing a farmers carry exercise at the gym, grasping heavy weights. 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 He reports nighttime numbness in bilateral UE's which subsides upon waking. Bilateral UE AROM and strength is WNL's. Gross grasp on the R hand is 65# compared to 55# on the L. Triggering is noted on the right 4th digit at PIP joint. Pt. was educated in tendon and nerve glides, postural exercises, and nighttime positioning to decrease symptoms. A 13.6% limitation is noted per the Quick DASH assessment. Pt would benefit from skilled OT services to address noted barriers and assist in return to PLOF. Frequency and Duration: The patient will be seen 2x/wk for 4 weeks Short Term Goals: Pain free hands with work and gym activities IND with orthosis wear to decrease triggering IND with posture exercise program Pt will report no night time numbness or trigger symptoms V Belt Finisher Goals: Same as above Treatment Plan: Therapeutic Exercise Therapeutic Activity Home Exercise Program Splinting Patient Education ADL Training Ultrasound Iontophoresis Paraffin Fluidotherapy MHP Joint Mobilization Soft Tissue Mobilization Kinesiotaping Electronically Signed By: Charissa Andrews MS OTR/L Please Sign and return to therapist. Thank you once again for your referral.
--- NOTE | 2023-03-25 15:27 | MHC.OT.DC ---
[address] [phone] F: [phone] Occupational Therapy Discharge Note Patient Name: Roverto Pan Provider: Francisco Garcia Diagnosis: Pain in bilateral hands, trigger finger right 4th digit Date of Surgery: Date of Evaluation: 02/03/23 Date of Discharge: Treatments to Date: 7 Cancellations to Date: No Shows to Date: Discharge Status: Achieved Goals Improved Function Independent with HEP Discharge Summary: Decreased edema on left after CP with continued joint stiffness compared to right hand. Making progress towards STGs, IND with use of orthosis and HEP. Pt reports is is occasionally experiencing stiffness with prolonged grasp on the steering wheel. Triggering has decreased although he is still experiencing 'sticking' in bilateral ring fingers. At this time, pt. is compliant with all exercises and has likely plateaued. We discussed referral to hand surgeon for possible injection or surgical consult. Pt in agreement with planned d/c. Electronically Signed By: Charissa Andrews MS OTR/L Reviewed/agree with student documentation: N/A Therapist: Please Sign and return to therapist, thank you for your referral.
== END 2023-03-25 15:28 | disposition home or self-care (01) ==
LOC: HO.OT 09:30
PROVIDERS: PCP Internal Medicine; Visit Provider Internal Medicine
DX: M65.351 Trigger finger, right little finger (principal); M79.641 Pain in right hand; M79.642 Pain in left hand
CPT/HCPCS: 97035; 97110; 97140; 97165

== ENCOUNTER 2023-03-29 09:39 | Day surgery (SDC) | payer MEDICARE, BC, SELFPAY ==
[2023-03-29 10:01] VITALS: BMI 24.2
[2023-03-29 10:40] VITALS: BP 131/61; PULSE 51; RESP 18; TEMP 37; O2SAT 97
--- NOTE | 2023-03-29 10:41 | PC.NURSE ---
IV inserted by dori ARAYA RN
[2023-03-29] MEDS: Lactated Ringers 1,000 ML 50 ML IVCONT (11:07)
--- NOTE | 2023-03-29 11:26 | P.CONAN_ITS ---
HPI - Anesthesia Eval Consult details Narrative: 78 yo male patient for Colonoscopy [facility] Active Problems Active Problems: All Active Problems (Updated 03/29/23 @ 11:27 by Kim Majano MD) Bilateral hand numbness (Acute) Trigger finger of right hand (Acute) Bilateral hand pain (Acute) Clavus (Acute) Colon cancer screening (Acute) LLQ abdominal pain (Acute) COVID-19 virus infection (Acute) Lower extremity edema (Acute) DVT (deep venous thrombosis) (Acute) about 4 years ago. Only on baby aspirin now History of heart failure (Acute) Hearing impairment (Acute) Impacted cerumen of both ears (Acute) Frequent bowel movements (Acute) Right shoulder strain (Acute) Anemia, chronic disease (Acute) Hypertension (Acute) Chronic kidney disease (CKD) stage G3a/A1, moderately decreased glomerular fi ltration rate (GFR) between 45-59 mL/min/1.73 square meter and albuminuria creatinine ratio less than 30 mg/g (Acute) Coronary artery disease (Acute) Hypercholesterolemia (Acute) BPH (benign prostatic hyperplasia) (Acute) GERD (gastroesophageal reflux disease) (Acute) Past Medical History Medical History BPH (benign prostatic hyperplasia) Chronic kidney disease (CKD) stage G3a/A1, moderately decreased glomerular filtration rate (GFR) between 45-59 mL/min/1.73 square meter and albuminuria creatinine ratio less than 30 mg/g Coronary artery disease GERD (gastroesophageal reflux disease) History of renal calculi Hypercholesterolemia Hypertension Left leg DVT Pancytopenia Right rotator cuff tear Skin cancer, basal cell Family History Family History Father Past heart attack S/P triple vessel bypass Mother Memory loss Father Prostate cancer Maternal Uncle Prostate cancer Esophagus cancer Paternal Uncle Prostate cancer Sister Lung cancer Family history of problems with anesthesia: No Surgical History Surgical History H/O basal cell carcinoma excision History of coronary artery stent placement History of hemorrhoidectomy History of prostate biopsy History of repair of rotator cuff History of Problems with Anesthesia: No Social History Social History Household Members: Spouse, Family and Children Housing: House Are you a primary field care coordinator to a significant other at home: No Do you presently have visiting nurse or other home services: No Alcohol intake: current Alcohol intake frequency: does not drink Alcohol type: wine Patient Tobacco Use Status: Never used Tobacco e-Cigarette/Vaping Use: Never Used Second Hand Smoke Exposure: No Are you DNR?: No Advance Directives: No Advance Directives Information Provided: Yes Nutrition Risks: No Nutritional Risk service: No Current occupational status: retired Cognitive needs: No Hearing needs: No Vision needs: Yes Meds Allergies Allergy/AdvReac Type Severity Reaction Status Date / Time itraconazole [ITRACONAZOLE] Allergy Severe SHORTNESS Verified 03/29/23 10:03 OF BREATH, edema, edema Active Medications: Current Medications Lactated Ringer's (Lr) 1,000 mls @ 50 mls/hr IVCONT .Q20H NINO Last Admin: 03/29/23 11:07 Dose: 50 mls/hr Sodium Biphosphate/Sodium Phosphate (Sodium Phosphate,[place]-Dibasic 133 Ml Enema) 133 ml NV ONCE PRN PRN Reason: Poor Colonoscopy Prep Results Home Medications Medication Instructions Recorded Confirmed Last Taken Type aspirin 81 mg tablet,delayed 81 mg PO DAILY 07/23/20 03/29/23 Unknown History release mometasone 50 mcg/actuation nasal 2 spray intranasal DAILY 07/23/20 11/13/22 Unknown History spray (Nasonex) multivitamin 1 tab PO DAILY 07/23/20 03/29/23 Unknown History Fish Oil 03/26/23 03/26/23 Unknown History Exam Exam Date and Time: March 29, 2023 1126 Height,Weight and Vital Signs: Height 5 ft 10 in Weight 76.657 kg Last Vital Signs Temp 98.6 F 03/29/23 10:40 Pulse 51 03/29/23 10:40 Resp 18 03/29/23 10:40 BP 131/61 03/29/23 10:40 Pulse Ox 97 03/29/23 10:40 O2 Del Method Room Air 03/29/23 10:40 Airway Mallampati Class: II TM Dist: >3cm Neck ROM: Full Loose/Missing/Broken Teeth: No (Denies broken, loose, missing teeth) Heart: RRR Lungs: CTAB Assessment and Plan Assessment Anesthesia Assessment: Anesthesia Plan Discussed and Chart Reviewed Final Anesthetic Review Family History of Problems with Anesthesia: No History of Problems with Anesthesia: No NPO: Yes ASA Class: III Final Preanesthetic Review: No Changes in Pt Med Stat, Meds/Allgs Chart Reviewed, Consent Obtained/Reviewed and Anes Risks/Benef Reviewed Patient Risk: Intermediate Procedure Risk: Low Assessment/Block/Sedation in SS: Assess/Block/Sedation-SS Anesthetic Plan Anesthetic Plan: MAC: Disposition: Standard PACU
[2023-03-29 12:36] VITALS: BP 91/56; PULSE 50; RESP 16; TEMP 36.8; O2SAT 98
--- NOTE | 2023-03-29 12:42 | PM.OP ---
Brief Operative Note Date of Service: 03/29/23 Pre-op diagnosis: Change in BM's, Screening Post-op diagnosis: other (Diverticulosis) Procedure: Colonoscopy to the cecum Surgeon: Star Dockery Anesthesia: MAC Was an Quality Assurance Tester used for this Procedure?: No Estimated blood loss (mL): 0 Pathology: none sent Condition: stable Disposition: PACU
[2023-03-29 12:54] VITALS: BP 105/55; PULSE 52; RESP 18; TEMP 36.1; O2SAT 98
--- NOTE | 2023-03-29 13:16 | OP_ITS ---
DATE OF SERVICE: 03/29/2023 SURGEON: Star Dockery MD INDICATIONS: The patient presents for evaluation of change in bowel habits and colorectal cancer screening. Full consent has been obtained from him for this, including risks of bleeding and perforation. PREOPERATIVE DIAGNOSIS: POSTOPERATIVE DIAGNOSIS: Colorectal cancer screening and change in bowel habits, diverticulosis and internal hemorrhoids. PROCEDURE PERFORMED: Colonoscopy to the cecum. ESTIMATED BLOOD LOSS: COMPLICATIONS: ANESTHESIA: Monitored anesthesia care. ASSISTANTS: SPECIMENS: PREOPERATIVE DIAGNOSES: Colorectal cancer screening and change in bowel habits. DESCRIPTION OF PROCEDURE: The patient was placed in the left lateral decubitus position. The digital rectal exam revealed no abnormalities. The Olympus video pediatric colonoscope was entered into the rectum and advanced easily to the cecum. Once in the cecum, I did identify normal-appearing cecal pouch with appendiceal orifice and a normal-appearing ileocecal valve. There was transillumination of light deep in the right lower quadrant. The entire cecum and ileocecal valve appeared normal. The scope was slowly withdrawn assessing all mucosal surfaces carefully. Preparation was excellent. I did not visualize any sign of polyps, colitis, nor angiodysplasia. There was a mild amount of sigmoid diverticulosis. In the rectum, scope was retroflexed visualizing internal hemorrhoids, but no other pathology. The rectal mucosa appeared normal. The scope was straightened and withdrawn from the patient. He tolerated the procedure well and was returned to the recovery area in stable condition. IMPRESSION: 1. Diverticulosis. 2. Internal hemorrhoids. PLAN: The patient has been instructed to try some Metamucil to see if that would help improve his bowel movement irregularity. Laboratories for celiac disease were negative. He was also advised to try a lactose-free milk to see if that might help as well. I do not think he will need any further screening colonoscopies given his age. He was advised to resume his aspirin today. He will otherwise see me on a p.r.n. basis. This has been discussed with his . MD HALLEY Oakes/REJI / [id number] MTDD
== END 2023-03-29 14:10 | disposition home or self-care (01) ==
PROVIDERS: PCP Internal Medicine; Visit Provider Internal Medicine
PROC: 0DJD8ZZ Inspection of Lower Intestinal Tract, Via Natural or Artificial Opening Endoscopic (ICD-10-PCS; CPT 45378; principal; 2023-03-29 11:40)
DX: Z12.11 Encounter for screening for malignant neoplasm of colon (principal); K57.30 Diverticulosis of large intestine without perforation or abscess without bleeding; K64.8 Other hemorrhoids; N40.0 Benign prostatic hyperplasia without lower urinary tract symptoms; K21.9 Gastro-esophageal reflux disease without esophagitis; D64.9 Anemia, unspecified; I12.9 Hypertensive chronic kidney disease with stage 1 through stage 4 chronic kidney disease, or unspecified chronic kidney disease; N18.31 Chronic kidney disease, stage 3a; I25.10 Atherosclerotic heart disease of native coronary artery without angina pectoris; Z95.5 Presence of coronary angioplasty implant and graft; Z79.899 Other long term (current) drug therapy; Z79.82 Long term (current) use of aspirin; Z88.8 Allergy status to other drugs, medicaments and biological substances
CPT/HCPCS: G0121

== ENCOUNTER 2023-04-13 12:13 | Outpatient (REF) | payer MEDICARE, BC, SELFPAY ==
[2023-04-13 14:24] LABS: Prostate Specific Antigen 0.98 ng/mL (<0.05-4.0)
== END 2023-04-13 12:14 | disposition home or self-care (01) ==
LOC: HO.LAB 12:13
PROVIDERS: PCP Internal Medicine; Visit Provider Physician Assistant Medical
DX: Z12.5 Encounter for screening for malignant neoplasm of prostate (principal); R97.20 Elevated prostate specific antigen [PSA]
CPT/HCPCS: 36415; 84153

== ENCOUNTER → 2023-04-29 08:57 | Outpatient (REF) | payer MEDICARE, BC, SELFPAY ==
--- NOTE | 2023-04-29 08:59 | CA_ITS ---
Transthoracic Echocardiogram Patient (Last, First, Middle): Roverto Pan, Gender: Male Date of : 1945 Age: 78 Procedure Date: 04/29/2023 Procedure Type: Transthoracic Echocardiogram Location: OP Height: 180.34 cm Weight: 74.84 kg BSA: 1.94 m2 Heart Rate: bpm BP: 125 / 70 mmHg Stained Glass Glazier Helper: AIDA Referring MD: Rajan Khanna MD Glass Forming Crew Member: Rajan Khanna MD Symptoms: I25.10 - Atherosclerotic heart disease of [place] coronary artery without... Study Quality: Good ECG Rhythm: Sinus Conclusions: - 1. Normal LV systolic function with LVEF of 65-70% 2. Mildly dilated left atrium 3. Cardiac valvular Dopplers within normal limits 4. Normal RV systolic pressure 5. No gross pericardial effusion Findings Left Ventricle Normal left ventricular size, thickness, and systolic function. The visually estimated ejection fraction is between 65-70%. Spectral Doppler is indicative of a normal filling pattern. Right Ventricle Normal right ventricular cavity size and systolic function. Atria The left atrium is mildly dilated. There is no evidence of interatrial shunt. The right atrium is likely dilated. Aortic Valve The aortic valve structure and function is likely normal. There is mild thickening of the aortic valve. There is no aortic valve stenosis. There is no aortic valve regurgitation. Mitral Valve There is mild anterior and posterior mitral leaflet thickening. There is trace mitral valve regurgitation. There is no mitral valve stenosis. Pulmonic Valve The pulmonic valve is likely normal. There is trace pulmonic valve regurgitation. Tricuspid Valve Normal tricuspid valve structure. There is trace tricuspid valve regurgitation. The right ventricular systolic pressure is normal. The right ventricular systolic pressure is 29 mmHg. Normal right atrial pressure. There is no evidence of pulmonary hypertension. Great Vessels All visible segments of the aorta are normal in size. The visualized portions of the pulmonary artery and branches are normal. Venous The inferior vena cava is normal in size and collapses greater than 50% with inspiration. Pericardium/Pleural There is no evidence of pericardial effusion. Prior Study Comparison No significant change compared to prior study dated: 03/11/2020. Measurements 2D Linear Measurements IVSd: 1.04 0.6-0.9/0.6-1.0 cm LVIDd: 4.66 3.9-5.3/4.2-5.9 cm LVIDd Index: 2.40 2.4-3.2/2.2-3.1 cm/m2 LVIDs: 2.60 2.0-3.6 cm LVPWd: 0.96 0.7-1.1 cm LA Diam: 3.60 2.7-3.8/3.0-4.0 cm LAIDs Index: 1.86 1.5-2.3 cm/m2 LV Mass: 202.12 67-162/88-224 g LV Mass Index: 104.19 43-95/49-115 g/m2 LVOT Diam: 2.20 3.0+(-)1.3 cm 2D Systolic Function EF 4C: 63.40 >55% EF 2C: 67.00 >55% EF BiP: 66.00 >55% Mitral Valve MV Pk E: 0.99 MV PK A: 0.81 MV Decel Time: 161.00 E/A: 1.20 E'Lateral: 11.10 E'Medial: 9.46 E/E' Med: 10.50 E/E' Lat: 9.00 PHT: 47.00 MVA PHT: 4.68 Decel [place]: 6.18 Aortic Valve AoV Pk Blas: 1.26 AoV Mn Blas: 0.88 AoV VTI: 0.32 AoV Pk Grad: 6.00 Aov Mn Grad: 4.00 FACUNDO Cont.VTI: 3.17 LVOT LVOT Pk Blas: 1.14 LVOT Mn Blas: 0.72 LVOT VTI: 0.27 LVOT Pk Grad: 5.00 LVOT Mn Grad: 2.00 LVOT Diam: 2.20 LVOT Area: 3.80 Diastolic Function MV Pk E: 0.99 MV Pk A: 0.81 E/A: 1.20 E'Medial: 9.46 E/E' Med: 10.50 E' Laterial: 11.10 E/E' Lat: 9.00 Right Ventricle TAPSE (mm): 30.10 TVS' Blas: 12.50 Tricuspid Valve TR Pk Blas: 2.55 TR Pk Grad: 26.00 RA Press: 3.00 RVSP: 29.00 Great Vessels Aorta Sinus of Valsalva: 3.37 2.0-3.[address] [place]: 2.50 1.7-3.4 cm Ao Asc: 3.40 2.1-3.4 cm Updated in Other Vendor System with Status of Final Rajan hKanna MD electronically signed on 04/29/2023 11:01:24 AM with status of Final
== END ==
LOC: HO.CARD 08:57
PROVIDERS: PCP Internal Medicine; Visit Provider Internal Medicine Cardiovascular Disease
DX: I25.10 Atherosclerotic heart disease of native coronary artery without angina pectoris (principal); Z86.79 Personal history of other diseases of the circulatory system
CPT/HCPCS: 93306

== ENCOUNTER → 2023-04-29 08:59 | Outpatient (BNV) | payer MEDICARE, BC, SELFPAY | PROVIDERS: PCP Internal Medicine; Visit Provider Internal Medicine Cardiovascular Disease | DX: I25.10 Atherosclerotic heart disease of native coronary artery without angina pectoris (principal) | CPT/HCPCS: 93306 ==

== ENCOUNTER 2023-05-05 09:36 | Outpatient (AMB) | payer MEDICARE, BC, SELFPAY ==
[2023-05-05 09:47] VITALS: BP 122/72; PULSE 59; O2SAT 98; BMI 23.2
--- NOTE | 2023-05-05 09:47 | A.OFFPC_ITS ---
Vital Signs 05/05/23 09:47 Height 5 ft 10 in Weight 162 lb BMI 23.2 BP 122/72 Blood Pressure Location Lt brachial Position Sitting Pulse 59 Pulse Source Pulse Oximeter Pulse Oximetry (%) 98 Oxygen Delivery Method Room Air Intake Visit Reasons: Coronary artery disease Allergies itraconazole [ITRACONAZOLE] Allergy (Severe, Verified 05/05/23 09:48) SHORTNESS OF BREATH, edema, edema Tobacco use date assessed: 11/02/22 Fall risk assessment: No Falls in past year Last assessed Fall Risk: 05/05/23 Dental Screening Dental Screen Date: 05/05/23 Did you have a dental visit in the last 12 months?: Yes Did you have a dental problem in the last 6 months where you did not have access to dental care?: No Was dental information given to patient?: Patient has dentist HPI Coronary artery disease HPI Details 78-year-old male with coronary artery di sease chronic kidney disease GERD BPH hypercholesterolemia hypertension last seen in January 2023 had some hand numbness and advised splints/brace to use patient is here for follow-up noted colonoscopy done last in 2012. Patient follows up with urology for the elevated PSA negative and hematuria TRUS P biopsy placed on Proscar. Patient had an echocardiogram done also April 2023 normal left ventricular function 65-70% mildly dilated left atrium valves normal. Colonoscopy Dr. Dockery done in March 2023 diverticulosis internal hemorrhoids [facility] Medical History BPH (benign prostatic hyperplasia) Chronic kidney disease (CKD) stage G3a/A1, moderately decreased glomerular filtr ation rate (GFR) between 45-59 mL/min/1.73 square meter and albuminuria creatinine ratio less than 30 mg/g Coronary artery disease GERD (gastroesophageal reflux disease) History of renal calculi Hypercholesterolemia Hypertension Left leg DVT Pancytopenia Right rotator cuff tear Skin cancer, basal cell Surgical History H/O basal cell carcinoma excision History of coronary artery stent placement History of hemorrhoidectomy History of prostate biopsy History of repair of rotator cuff Family History Father Past heart attack S/P triple vessel bypass Mother Memory loss Father Prostate cancer Maternal Uncle Prostate cancer Esophagus cancer Paternal Uncle Prostate cancer Sister Lung cancer Social History Household Members: Spouse, Family and Children Housing: House Are you a primary farm or ranch animal caretaker to a significant other at home: No Do you presently have visiting nurse or other home services: No Alcohol intake: current Alcohol intake frequency: does not drink Alcohol type: wine Patient Tobacco Use Status: Never used Tobacco e-Cigarette/Vaping Use: Never Used Second Hand Smoke Exposure: No service: No Current occupational status: retired Cognitive needs: No Hearing needs: No Vision needs: Yes Questionnaire PHQ-9 Over the last 2 weeks, how often have you been bothered by any of the following problems? 1. Little interest or pleasure in doing things: not at all 2. Feeling down, depressed, or hopeless: not at all 3. Trouble falling or staying asleep, or sleeping too much: not at all 4. Feeling tired or having little energy: not at all 5. Poor appetite or overeating: not at all 6. Feeling bad about yourself - or that you are a failure or have let yourself or your family down: not at all 7. Trouble concentrating on things, such as reading the newspaper or watching television: not at all 8. Moving or speaking so slowly that other people could have noticed. Or the opposite - being so fidgety or restless that you have been moving around a lot more than usual: not at all 9. Thoughts that you would be better off or of hurting yourself in some way: not at all Total score: 0 Depression Screening Interpretation: Negative Source: Developed by Drs. Star Palmer, Alyssia Muniz, Abe Mai and colleagues, with an educational sal from [employer]. Thrive Questionnaire Date Thrive assessed: 11/02/22 AUDIT C Alcohol Use Questionnaire (AUDIT-C) 1. How often do you have a drink containing alcohol?: Monthly or less 2. How many drinks containing alcohol do you have on a typical day when you are drinking?: 1 or 2 3. How often do you have six or more drinks on one occasion?: Never Total Score: 1 OMAR-7 AMB Questionnaire OMAR-7 Date OMAR - 7 assessed: 11/02/22 Source: Developed by Drs. Star Palmer, Alyssia Muniz, Abe Mai and colleagues, with an educational sal from [employer]. Physical exam (Primary Care) Vital Signs: Last Vital Signs Pulse 59 05/05/23 09:47 BP 122/72 05/05/23 09:47 Pulse Ox 98 05/05/23 09:47 Oxygen Delivery Method Room Air 05/05/23 09:47 BMI result Body Mass Index 23.2 Tobacco/Smoking Status: Tobacco use Status Tobacco use date assessed 11/02/22 05/05/23 09:52 Patient Tobacco Use Status Never used Tobacco 05/05/23 09:52 e-Cigarette/Vaping Use Never Used 05/05/23 09:52 PHQ-9: PHQ-9 Score PHQ-9: Total score 0 05/05/23 09:52 Depression Screening Interpretation: Negative Thrive Assessment: Date of Thrive Assessment Date Thrive assessed 11/02/22 05/05/23 09:52 Const General: alert; No acute distress Eyes Conjunctivae: conjunctivae normal Resp Auscultation: clear to auscultation bilaterally Cardio Rate: regular rate Rhythm: regular rhythm GI Inspection: Yes normal to inspection Extrem Other: 2+ edema General: Yes edema Assessment and Plan Assessment & Plan (1) Coronary artery disease: Comment: Stent placement 2003, asymptomatic, nuclear stress was negative CAD angiogram Dec 22 1016-echo February 2020 EF 60-65% Code(s): I25.10 - Atherosclerotic heart disease of [place] coronary artery without angina pectoris Qualifiers: Coronary Disease-Associated Artery/Lesion type: [place] artery [place] vs. transplanted heart: [place] heart Associated angina: without angina Qualified Code(s): I25.10 - Atherosclerotic heart disease of [place] coronary artery without angina pectoris Plan: Control the cholesterol, weight, blood pressure continue with aspirin (2) Hypercholesterolemia: Code(s): E78.00 - Pure hypercholesterolemia, unspecified Plan: Avoid fried foods, chicken skin, eggs, butter margarine, pastries and meat. Be it pork or beef they have a lot of cholesterol LDL goal of less than 70 patient takes atorvastatin 40 mg once a day and Zetia 10 mg once a day (3) GERD (gastroesophageal reflux disease): Code(s): K21.9 - Gastro-esophageal reflux disease without esophagitis Qualifiers: Esophagitis presence: without esophagitis Qualified Code(s): K21.9 - Gastro-esophageal reflux disease without esophagitis Plan: Avoid the foods that causes that usually spicy foods, tomato products, juices, coffee, soda and foods that your sensitive to. After eating do not lie down, allow 3-4 hours before in lie down. And keep the head of bed above 30 degrees to avoid the acid from going up. (4) Chronic kidney disease (CKD) stage G3a/A1, moderately decreased glomerular filtration rate (GFR) between 45-59 mL/min/1.73 square meter and albuminuria creatinine ratio less than 30 mg/g: Comment: IgA nephropathy? Code(s): N18.31 - Chronic kidney disease, stage 3a Plan: Keep well hydrated avoid NSAIDs (5) Hypertension: Code(s): I10 - Essential (primary) hypertension Qualifiers: Hypertension type: essential hypertension Qualified Code(s): I10 - Essential (primary) hypertension Plan: Continue with blood pressure medication. Decrease salt intake and exercise continue with atenolol 25 mg once a day (6) Bilateral hand numbness: Code(s): R20.0 - Anesthesia of skin (7) Degenerative disc disease, cervical: Code(s): M50.30 - Other cervical disc degeneration, unspecified cervical region Plan: Keep active (8) Trigger finger: Code(s): M65.30 - Trigger finger, unspecified finger Plan: knows to call Dr. Jernigan if getting worse Coding Level of Care Code Est Pt Level 4 (46472) Diagnoses Coronary artery disease involving [place] coronary artery of [place] heart without angina pectoris I25.10 Coronary Disease-Associated Artery/Lesion type: [place] artery [place] vs. transplanted heart: [place] heart Associated angina: without angina Hypercholesterolemia E78.00 Gastroesophageal reflux disease without esophagitis K21.9 Esophagitis presence: without esophagitis Chronic kidney disease (CKD) stage G3a/A1, moderately decreased glomerular filtration rate (GFR) between 45-59 mL/min/1.73 square meter and albuminuria creatinine ratio less than 30 mg/g N18.31 Essential hypertension I10 Hypertension type: essential hypertension Bilateral hand numbness R20.0 Degenerative disc disease, cervical M50.30 Trigger finger M65.30
== END 2023-05-05 10:35 | disposition home or self-care (01) ==
PROVIDERS: Visit Provider Internal Medicine
DX: K21.9 Gastro-esophageal reflux disease without esophagitis (principal); N18.31 Chronic kidney disease, stage 3a; I25.10 Atherosclerotic heart disease of native coronary artery without angina pectoris; E78.00 Pure hypercholesterolemia, unspecified; I12.9 Hypertensive chronic kidney disease with stage 1 through stage 4 chronic kidney disease, or unspecified chronic kidney disease; R20.0 Anesthesia of skin; M50.30 Other cervical disc degeneration, unspecified cervical region
CPT/HCPCS: 99214

== ENCOUNTER 2023-05-06 08:42 | Outpatient (AMB) | payer MEDICARE, BC, SELFPAY ==
[2023-05-06 08:56] VITALS: BP 116/66; PULSE 52; BMI 23.1
--- NOTE | 2023-05-06 08:56 | A.OFFVIS_ITS ---
Intake Vital Signs 05/06/23 08:56 Height 5 ft 10 in Weight 160 lb 14.999 oz BMI 23.1 BP 116/66 Blood Pressure Location Lt brachial Position Sitting Pulse 52 Intake Visit Reasons: 1 year folow up Intake Note: 1 year follow-up with ekg Test Eng Required: No Allergies itraconazole [ITRACONAZOLE] Allergy (Severe, Verified 05/05/23 09:48) SHORTNESS OF BREATH, edema, edema Medication List - Last Reconciled 05/06/23 by Rajan Khanna MD aspirin 81 mg PO DAILY atenolol 25 mg PO DAILY atorvastatin (Lipitor) 40 mg PO DAILY barium sulfate 2%(w/v) (Readi-Cat 2) 450 mL PO ONCE ezetimibe (Zetia) 10 mg PO DAILY finasteride (Proscar) 5 mg PO DAILY [Fish Oil ] mometasone 50 mcg/actuation (Nasonex) 2 sprays intranasal DAILY multivitamin 1 tab PO DAILY omeprazole 40 mg PO DAILY HPI HPI Comments History of Present Illness Details Roverto comes for follow-up. He has been doing extremely well from cardiac perspective. He has been participating regular physical activity at the gym. Denies any exertional chest pain or shortness of breath. Recent echocardiogram shows normal LV systolic function with mild left atrial enlargement without major valvular abnormalities. His LDL is well optimized. His any exertional chest pain shortness of breath, lightheadedness, syncope. No prolonged palpitations, irregular heartbeat, orthopnea, PND, leg edema. He says he has noticed some diarrhea and he thinks might be related to Zetia therapy. He had GI workup without any obvious cause otherwise. [facility] Medical History BPH (benign prostatic hyperplasia) Chronic kidney disease (CKD) stage G3a/A1, moderately decreased glomerular filtration rate (GFR) between 45-59 mL/min/1.73 square meter and albuminuria creatinine ratio less than 30 mg/g Coronary artery disease GERD (gastroesophageal reflux disease) History of renal calculi Hypercholesterolemia Hypertension Left leg DVT Pancytopenia Right rotator cuff tear Skin cancer, basal cell Surgical History H/O basal cell carcinoma excision History of coronary artery stent placement History of hemorrhoidectomy History of prostate biopsy History of repair of rotator cuff Family History Father Past heart attack S/P triple vessel bypass Mother Memory loss Father Prostate cancer Maternal Uncle Prostate cancer Esophagus cancer Paternal Uncle Prostate cancer Sister Lung cancer Social History Household Members: Spouse, Family and Children Housing: House Are you a primary child day care teacher to a significant other at home: No Do you presently have visiting nurse or other home services: No Alcohol intake: current Alcohol intake frequency: does not drink Alcohol type: wine Patient Tobacco Use Status: Never used Tobacco e-Cigarette/Vaping Use: Never Used Second Hand Smoke Exposure: No service: No Current occupational status: retired Cognitive needs: No Hearing needs: No Vision needs: Yes Review of Systems Const Denies chills, Denies fatigue, Denies fever(s), Denies frequent falls, Denies weakness, Denies weight gain and Denies weight loss ENT Denies dizziness Card Denies chest pain, Denies leg edema, Denies lightheadedness, Denies palpitations, Denies dyspnea, Denies dyspnea on exertion, Denies orthopnea and Denies other (loss of consciousness) Resp Denies cough, Denies dyspnea and Denies dyspnea on exertion GI Denies hematochezia and Denies change in stool character Musc Denies abnormal gait, Denies muscle weakness, Denies numbness, Denies radiating pain into limb and Denies tingling Neuro Denies abnormal gait, Denies dizziness, Denies frequent falls, Denies numbness, Denies tingling and Denies weakness Endo Denies fatigue and Denies palpitations Physical Exam Vital Signs: Last Vital Signs Pulse 52 05/06/23 08:56 BP 116/66 05/06/23 08:56 BMI result Body Mass Index 23.1 Const General: cooperative, comfortable, no acute distress, alert, awake and well groomed Nutritional Appearance: thin Orientation/consciousness: patient oriented x3 Limitations: no limitations Neck Neck: Yes trachea midline and Yes no JVD Carotids: no bruits Resp Effort & Inspection: normal respiratory effort Auscultation: clear to auscultation bilaterally Cardio Jugular venous distension: no JVD Palpation: normal PMI Rate: regular rate Rhythm: regular rhythm Heart sounds: S1 normal heart sound present, S2 normal heart sound present, no click, no gallops, no murmurs and no rubs GI Auscultation: normal bowel sounds Skin General skin exam: no rashes or lesions noted Neuro General: patient oriented x3 and no focal motor deficits Extrem General: Yes no clubbing, cyanosis or edema Psych Appearance: grossly normal Office Procedures EKG Details: EKG shows sinus bradycardia with first-degree AV block with left axis deviation [id number], Complete Assessment & Plan Assessment & Plan (1) Coronary artery disease: Comment: Stent placement 2003, asymptomatic, nuclear stress was negative CAD angiogram Dec 22 1016-echo February 2020 EF 60-65% Code(s): I25.10 - Atherosclerotic heart disease of [place] coronary artery without angina pectoris Qualifiers: Coronary Disease-Associated Artery/Lesion type: [place] artery [place] vs. transplanted heart: [place] heart Associated angina: without angina Qualified Code(s): I25.10 - Atherosclerotic heart disease of [place] coronary artery without angina pectoris Plan: CAD with multivessel PCI in the past, long time ago. Has done well with stenting. Continue aggressive medical therapy. Continue low-dose aspirin therapy for life. His lipids are well optimized and continue current medication although he is having side effects to possibly Zetia therapy. Advised to have a holiday from that if for 2 weeks. If his diarrhea improves will switch him to bempedoic acid. Target goal LDL closer to 50 mg/dL. Continue aggressive blood pressure control, see below. Advised to maintain active lifestyle. Advised to call me with any new symptoms. No further workup is indicated. (2) Hypertension: Code(s): I10 - Essential (primary) hypertension Qualifiers: Hypertension type: essential hypertension Qualified Code(s): I10 - Essential (primary) hypertension Plan: Hypertension which is currently well optimized advised to monitor blood pressure at home maintain a log. Goal blood pressure less than 130/84. Maintain active lifestyle. Will follow up in the clinic in 1 year's time, sooner p.r.n.. Thank you for allowing me to partake in his care Coding Level of Care Code Est Pt Level 4 (81774) Diagnoses Coronary artery disease involving [place] coronary artery of [place] heart without angina pectoris I25.10 Coronary Disease-Associated Artery/Lesion type: [place] artery [place] vs. transplanted heart: [place] heart Associated angina: without angina Essential hypertension I10 Hypertension type: essential hypertension CPT Codes EKG - CPT: 79962-[id number], Complete ([id number])
== END 2023-05-06 09:18 | disposition home or self-care (01) ==
PROVIDERS: PCP Internal Medicine; Referring Provider Internal Medicine; Visit Provider Internal Medicine Cardiovascular Disease
DX: I25.10 Atherosclerotic heart disease of native coronary artery without angina pectoris (principal); I10 Essential (primary) hypertension
CPT/HCPCS: 93010; 99214

== ENCOUNTER → 2023-05-06 08:42 | Outpatient (BNVA) | payer MEDICARE, BC, SELFPAY | PROVIDERS: PCP Internal Medicine; Referring Provider Internal Medicine; Visit Provider Internal Medicine Cardiovascular Disease | DX: I25.10 Atherosclerotic heart disease of native coronary artery without angina pectoris (principal); I10 Essential (primary) hypertension; Z79.82 Long term (current) use of aspirin | CPT/HCPCS: 93005; 99212 ==

== ENCOUNTER 2023-06-02 08:51 | Outpatient (REF) | payer MEDICARE, BC, SELFPAY ==
[2023-06-02 11:19] LABS: Creatinine Urine 149.36 mg/dL; Total Protein Urine Random < 7 mg/dL (<12)
== END 2023-06-02 08:52 | disposition home or self-care (01) ==
LOC: HO.LAB 08:51
PROVIDERS: PCP Internal Medicine; Referring Provider Internal Medicine; Visit Provider Internal Medicine Nephrology
DX: I12.9 Hypertensive chronic kidney disease with stage 1 through stage 4 chronic kidney disease, or unspecified chronic kidney disease (principal); N18.30 Chronic kidney disease, stage 3 unspecified; E78.00 Pure hypercholesterolemia, unspecified
CPT/HCPCS: 36415; 80051; 80053; 80061; 81001; 82310; 82565; 82570; 82607; 82746; 84156; 84439; 84443; 84520; 85025

== ENCOUNTER 2023-06-14 11:12 | Outpatient (REF) | payer SELFPAY | END 2023-06-14 11:13 | disposition home or self-care (01) | LOC: HO.HAP 11:12 | PROVIDERS: Visit Provider Internal Medicine | DX: Z13.89 Encounter for screening for other disorder (principal) ==

== ENCOUNTER 2023-06-15 10:26 | Outpatient (REF) | payer SELFPAY | END 2023-06-15 10:27 | disposition home or self-care (01) | LOC: HO.HAP 10:26 | PROVIDERS: Visit Provider Internal Medicine | DX: Z13.89 Encounter for screening for other disorder (principal) ==

== ENCOUNTER 2023-06-29 10:54 | Outpatient (AMB) | payer MEDICARE, BC, SELFPAY ==
--- NOTE | 2023-06-29 11:02 | HO.NEPHOV_ITS ---
HPI HPI Comments History of Present Illness Details I had the pleasure up was seeing a Roverto in the office in follow-up for his chronic kidney disease and hypertension. Even though he has history of coronary artery disease and had undergone stenting twice, he currently does not have any chest pain, shortness of breath, dizziness, ankle swelling, palpitation or syncope. His blood pressure had been at goal. He now has hearing aids. He does not have any urinary symptoms. He is compliant with his medications. He feels well. [facility] Medical History Skin cancer, basal cell Left leg DVT Pancytopenia Hypertension Chronic kidney disease (CKD) stage G3a/A1, moderately decreased glomerular filtration rate (GFR) between 45-59 mL/min/1.73 square meter and albuminuria creatinine ratio less than 30 mg/g Right rotator cuff tear History of renal calculi Coronary artery disease Hypercholesterolemia BPH (benign prostatic hyperplasia) GERD (gastroesophageal reflux disease) Surgical History History of coronary artery stent placement History of repair of rotator cuff H/O basal cell carcinoma excision History of prostate biopsy History of hemorrhoidectomy Family History Father Past heart attack S/P triple vessel bypass Mother Memory loss Father Prostate cancer Maternal Uncle Prostate cancer Esophagus cancer Paternal Uncle Prostate cancer Sister Lung cancer Social History Household Members: Spouse, Family and Children Housing: House Are you a primary manager care management to a significant other at home: No Do you presently have visiting nurse or other home services: No Alcohol intake: current Alcohol intake frequency: does not drink Alcohol type: wine Patient Tobacco Use Status: Never used Tobacco e-Cigarette/Vaping Use: Never Used Second Hand Smoke Exposure: No service: No Current occupational status: retired Cognitive needs: No Hearing needs: No Vision needs: Yes Vital Signs 06/29/23 11:03 Height 5 ft 10 in Weight 163 lb 6 oz BMI 23.4 BP 130/70 Blood Pressure Location Rt brachial Pulse 57 Pulse Source Pulse Oximeter Assessment & Plan Assessment & Plan (1) Chronic kidney disease (CKD) stage G3a/A1, moderately decreased glomerular filtration rate (GFR) between 45-59 mL/min/1.73 square meter and albuminuria creatinine ratio less than 30 mg/g: Code(s): N18.31 - Chronic kidney disease, stage 3a (2) Hypertension: Code(s): I10 - Essential (primary) hypertension Qualifiers: Hypertension type: essential hypertension Qualified Code(s): I10 - Essential (primary) hypertension Plan Roverto has some chronic kidney disease for long time likely from vascular disease. His renal functions are stable at baseline. His blood pressure is at goal. He is on statins. His lipid profile is fantastic. He does not take any nonsteroidal anti-inflammatory medications. He tries to remain hydrated well . I did not make any medication changes today. I answered all his questions. Follow-up blood work ordered. Time spent for retrieving data, patient encounter and documentation 29 minutes Orders: Orders Electrolytes Today I10 - Essential (primary) hypertension, N18.31 - Chronic kidney disease, stage 3a Blood Urea Nitrogen Today I10 - Essential (primary) hypertension, N18.31 - Chronic kidney disease, stage 3a Creatinine Today I10 - Essential (primary) hypertension, N18.31 - Chronic kidney disease, stage 3a Calcium Today I10 - Essential (primary) hypertension, N18.31 - Chronic kidney disease, stage 3a Coding Level of Care Code Est Pt Level 3 (66242) Diagnoses Chronic kidney disease (CKD) stage G3a/A1, moderately decreased glomerular filtration rate (GFR) between 45-59 mL/min/1.73 square meter and albuminuria c reatinine ratio less than 30 mg/g N18.31 Essential hypertension I10 Hypertension type: essential hypertension
[2023-06-29 11:03] VITALS: BP 130/70; PULSE 57; BMI 23.4
== END 2023-06-29 11:23 | disposition home or self-care (01) ==
PROVIDERS: PCP Internal Medicine; Visit Provider Internal Medicine Nephrology
DX: N18.31 Chronic kidney disease, stage 3a (principal); I10 Essential (primary) hypertension
CPT/HCPCS: 99213

== ENCOUNTER → 2023-06-29 10:54 | Outpatient (BNVA) | payer MEDICARE, BC, SELFPAY | PROVIDERS: PCP Internal Medicine; Visit Provider Internal Medicine Nephrology | DX: I12.9 Hypertensive chronic kidney disease with stage 1 through stage 4 chronic kidney disease, or unspecified chronic kidney disease (principal); N18.31 Chronic kidney disease, stage 3a | CPT/HCPCS: 99212 ==

== ENCOUNTER 2023-07-01 13:17 | Outpatient (REF) | payer SELFPAY | END 2023-07-01 13:18 | disposition home or self-care (01) | LOC: HO.HAP 13:17 | PROVIDERS: Visit Provider Internal Medicine | DX: Z13.89 Encounter for screening for other disorder (principal) ==

== ENCOUNTER 2023-07-02 12:05 | Outpatient (REF) | payer SELFPAY | END 2023-07-02 12:06 | disposition home or self-care (01) | LOC: HO.HAP 12:05 | PROVIDERS: Visit Provider Internal Medicine | DX: Z46.1 Encounter for fitting and adjustment of hearing aid (principal); H90.3 Sensorineural hearing loss, bilateral | CPT/HCPCS: V5267 ==

== ENCOUNTER 2023-07-05 10:21 | Outpatient (REF) | payer SELFPAY | END 2023-07-05 10:22 | disposition home or self-care (01) | LOC: HO.HAP 10:21 | PROVIDERS: Visit Provider Internal Medicine | DX: Z13.89 Encounter for screening for other disorder (principal) ==

== ENCOUNTER 2023-08-20 11:25 | Outpatient (AMB) | payer MEDICARE, BC, SELFPAY ==
[2023-08-20 11:33] VITALS: BP 110/72; PULSE 59; O2SAT 96; BMI 23.4
--- NOTE | 2023-08-20 11:33 | MHC.PC.OV ---
Vital Signs 08/20/23 11:33 Height 5 ft 10 in Weight 163 lb BMI 23.4 BP 110/72 Blood Pressure Location Lt brachial Position Sitting Pulse 59 Pulse Source Pulse Oximeter Pulse Oximetry (%) 96 Oxygen Delivery Method Room Air Intake Visit Reasons: HTN . 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: No Allergies itraconazole [ITRACONAZOLE] Allergy (Severe, Verified 08/20/23 11:36) SHORTNESS OF BREATH, edema, edema Medication List - Last Reconciled 08/20/23 by Francisco Garcia MD aspirin 81 mg PO DAILY atenolol 25 mg PO DAILY atorvastatin (Lipitor) 40 mg PO DAILY ezetimibe (Zetia) 10 mg PO DAILY finasteride (Proscar) 5 mg PO DAILY [Fish Oil ] ipratropium bromide 2 sprays intranasal BID mometasone 50 mcg/actuation (Nasonex) 2 sprays intranasal DAILY multivitamin 1 tab PO DAILY omeprazole 40 mg PO DAILY Tobacco use date assessed: 08/20/23 Fall risk assessment: No Falls in past year Last assessed Fall Risk: 08/20/23 HPI HTN . cholesterol HPI Details 78-year-old male with coronary artery disease hypercholesterolemia GERD chronic kidney disease hypertension coming in for follow-up. Last seen in April 2023. Patient has colonoscopy has been done. Patient follows up with Nephrology for chronic kidney disease and hypertension creatinine running at 1.2-1.3 diagnosis of IgA nephropathy no need for renal biopsy advised fish oil avoid NSAID keep well hydrated. Patient also follows up with Cardiology low-dose aspirin question of diarrhea from Zetia option of benefit awake acid target LDL of less than 50. sinus problem 8 weeks runny nose [facility] Medical History Skin cancer, basal cell Left leg DVT Pancytopenia Hypertension Chronic kidney disease (CKD) stage G3a/A1, moderately decreased glomerular filtration rate (GFR) between 45-59 mL/min/1.73 square meter and albuminuria creatinine ratio less than 30 mg/g Right rotator cuff tear History of renal calculi Coronary artery disease Hypercholesterolemia BPH (benign prostatic hyperplasia) GERD (gastroesophageal reflux disease) Surgical History History of coronary artery stent placement History of repair of rotator cuff H/O basal cell carcinoma excision History of prostate biopsy History of hemorrhoidectomy Family History Father Past heart attack S/P triple vessel bypass Mother Memory loss Father Prostate cancer Maternal Uncle Prostate cancer Esophagus cancer Paternal Uncle Prostate cancer Sister Lung cancer Social History Household Members: Spouse, Family and Children Housing: House Are you a primary rn acute care to a significant other at home: No Do you presently have visiting nurse or other home services: No Alcohol intake: current Alcohol intake frequency: does not drink Alcohol type: wine Patient Tobacco Use Status: Never used Tobacco e-Cigarette/Vaping Use: Never Used Second Hand Smoke Exposure: No service: No Current occupational status: retired Cognitive needs: No Hearing needs: No Vision needs: Yes Questionnaire Thrive Questionnaire Date Thrive assessed: 11/02/22 AUDIT C Alcohol Use Questionnaire (AUDIT-C) 1. How often do you have a drink containing alcohol?: Monthly or less 2. How many drinks containing alcohol do you have on a typical day when you are drinking?: 1 or 2 3. How often do you have six or more drinks on one occasion?: Never Total Score: 1 OMAR-7 AMB Questionnaire OMAR-7 Date OMAR - 7 assessed: 11/02/22 Source: Developed by Drs. Star Palmer, Alyssia Muniz, Abe Mai and colleagues, with an educational sal from authorGEN. Physical exam (Primary Care) Vital Signs: Last Vital Signs Pulse 59 08/20/23 11:33 BP 110/72 08/20/23 11:33 Pulse Ox 96 08/20/23 11:33 Oxygen Delivery Method Room Air 08/20/23 11:33 BMI result Body Mass Index 23.4 Tobacco/Smoking Status: Tobacco use Status Tobacco use date assessed 08/20/23 08/20/23 11:36 Patient Tobacco Use Status Never used Tobacco 08/20/23 11:33 e-Cigarette/Vaping Use Never Used 08/20/23 11:33 Thrive Assessment: Date of Thrive Assessment Date Thrive assessed 11/02/22 08/20/23 11:33 Const Other: impacted cerumen R ear General: alert; No acute distress Eyes Conjunctivae: conjunctivae normal Resp Auscultation: clear to auscultation bilaterally Cardio Rate: regular rate Rhythm: regular rhythm GI Inspection: Yes normal to inspection Extrem General: Yes normal to inspection and No edema Office Procedures Cerumen Removal From which ear canal was the cerumen removed: right Removal: otoscope w/curette and cerumen loop/spoon Notes: patient tolerated procedure well, no complications and ear canal clear [id number] Wax Removal by Spoon/Curette Flu Questionnaire Does the patient have a severe egg allergy?: No Does the patient have severe life threatening allergies?: No Does the patient have a fever or illness today?: No Has the patient ever had Guillain-[place] Syndrome?: No Has the patient ever had any past reaction to a flu shot?: No Immunizations flu vacc [id number] 6mos up(PF) 60 mcg(15 mcgx4)/0.5 mL IM syringe Performing Provider: Francisco Garcia MD Performing Location: [facility] Administered by: JT Fowler on 08/20/23 11:47 Dose Route Admin Location Dispensed Lot Number Expiration Date NDC Procurement Coordinator 0.5 mL IM Left Deltoid 0.5 mL [id number] 02/20/24 [id number] [employer] VIS Given Date VIS Provided VIS Publication Date 08/20/23 Single Vaccine 21 Eligibility Eligibility Date Funding Source Not [facility] Eligible 08/20/23 Private Assessment and Plan Assessment & Plan (1) Chronic kidney disease (CKD) stage G3a/A1, moderately decreased glomerular filtration rate (GFR) between 45-59 mL/min/1.73 square meter and albuminuria creatinine ratio less than 30 mg/g: Code(s): N18.31 - Chronic kidney disease, stage 3a Plan: Patient follows up with Nephrology keep well hydrated avoid NSAIDs continue with blood pressure control (2) Coronary artery disease: Comment: Stent placement 2003, asymptomatic, nuclear stress was negative CAD angiogram Dec 22 1016-echo February 2020 EF 60-65% Code(s): I25.10 - Atherosclerotic heart disease of redding coronary artery without angina pectoris Qualifiers: Coronary Disease-Associated Artery/Lesion type: redding artery [place] vs. transplanted heart: redding heart Associated angina: without angina Qualified Code(s): I25.10 - Atherosclerotic heart disease of redding coronary artery without angina pectoris Plan: Control the cholesterol, weight, blood pressure continue with aspirin (3) Hypercholesterolemia: Code(s): E78.00 - Pure hypercholesterolemia, unspecified Plan: Avoid fried foods, chicken skin, eggs, butter margarine, pastries and meat. Be it pork or beef they have a lot of cholesterol LDL goal near 50 on Zetia and atorvastatin (4) GERD (gastroesophageal reflux disease): Code(s): K21.9 - Gastro-esophageal reflux disease without esophagitis Qualifiers: Esophagitis presence: without esophagitis Qualified Code(s): K21.9 - Gastro-esophageal reflux disease without esophagitis Plan: Avoid the foods that causes that usually spicy foods, tomato products, juices, coffee, soda and foods that your sensitive to. After eating do not lie down, allow 3-4 hours before in lie down. And keep the head of bed above 30 degrees to avoid the acid from going up. (5) Hypertension: Code(s): I10 - Essential (primary) hypertension Qualifiers: Hypertension type: essential hypertension Qualified Code(s): I10 - Essential (primary) hypertension Plan: Continue with blood pressure medication. Decrease salt intake and exercise continue to take atenolol 25 mg once a day (6) Nasal congestion: Code(s): R09.81 - Nasal congestion (7) Impacted cerumen of right ear: Code(s): H61.21 - Impacted cerumen, right ear Plan: scoop done R ear TM intact no irrigation Orders: Orders Influenza [id number] Immunization Today Z23 - Encounter for immunization Medications: New ipratropium bromide administer into each nostril 2 sprays intranasal BID 30 mL 0RF R09.81 - Nasal congestion Coding Level of Care Code Est Pt Level 4 (81055) Diagnoses Chronic kidney disease (CKD) stage G3a/A1, moderately decreased glomerular filtration rate (GFR) between 45-59 mL/min/1.73 square meter and albuminuria creatinine ratio less than 30 mg/g N18.31 Coronary artery disease involving redding coronary artery of redding heart without angina pectoris I25.10 Coronary Disease-Associated Artery/Lesion type: redding artery [place] vs. transplanted heart: redding heart Associated angina: without angina Hypercholesterolemia E78.00 Gastroesophageal reflux disease without esophagitis K21.9 Esophagitis presence: without esophagitis Essential hypertension I10 Hypertension type: essential hypertension Nasal congestion R09.81 Impacted cerumen of right ear H61.21 CPT Codes Office Procedure - CPT: 43371-Avo Wax Removal by Spoon/Curette ([id number])
== END 2023-08-20 12:44 | disposition home or self-care (01) ==
PROVIDERS: PCP Internal Medicine; Visit Provider Internal Medicine
DX: N18.31 Chronic kidney disease, stage 3a (principal); I25.10 Atherosclerotic heart disease of native coronary artery without angina pectoris; E78.00 Pure hypercholesterolemia, unspecified; Z23 Encounter for immunization; H61.21 Impacted cerumen, right ear; K21.9 Gastro-esophageal reflux disease without esophagitis; I10 Essential (primary) hypertension; R09.81 Nasal congestion
CPT/HCPCS: 69210; 90471; 90686; 99214

== ENCOUNTER 2023-08-26 09:53 | Emergency (ER) | payer MEDICARE, BC, SELFPAY ==
[2023-08-26 10:39] VITALS: BP 129/84; PULSE 58; RESP 18; TEMP 36.6; O2SAT 98; BMI 22.5
[2023-08-26 20:10] VITALS: BP 179/77; PULSE 60; RESP 14; TEMP 36.7; O2SAT 98
[2023-08-26 23:14] VITALS: BP 162/66; PULSE 51; RESP 12; TEMP 36.9; O2SAT 98
--- NOTE | 2023-08-27 00:09 | ED.CHESTPAIN ---
HPI - Chest Pain General Chief Complaint: Chest Pain Stated Complaint: Chest pressure, lightheaded Time Seen by Provider: 08/26/23 23:58 Source: patient Mode of arrival: ambulatory Limitations: no limitations History of Present Illness HPI narrative: a 78-year-old male with coronary artery disease needed 3 stent in the past came in with chest pressure and felt lightheadedness. Patient also complaining of dry cough. Patient had similar chest pain 3 days ago associated with syncope was evaluated and admitted at [facility] was diagnosed with RSV, today patient felt chest pressure early in the morning patient been in the emergency room for 14 hours to be seen no more chest pain over the 14 hours, patient also had a cardiac workup with negative 2 troponins. Follow-up with Dr. Khanna has a normal echocardiogram 4 months ago. Related Data Home Medications Medication Instructions Recorded Confirmed aspirin 81 mg tablet,delayed 81 mg PO DAILY 07/23/20 08/20/23 release mometasone 50 mcg/actuation nasal 2 spray intranasal DAILY 07/23/20 08/20/23 spray (Nasonex) multivitamin 1 tab PO DAILY 07/23/20 08/20/23 Fish Oil 03/26/23 08/20/23 Previous Rx's Medication Instructions Recorded atenolol 25 mg tablet 25 mg PO DAILY #90 tabs 11/29/22 finasteride 5 mg tablet (Proscar) 5 mg PO DAILY #90 tabs 02/28/23 ezetimibe 10 mg tablet (Zetia) 10 mg PO DAILY #90 tabs 04/23/23 atorvastatin 40 mg tablet (Lipitor) 40 mg PO DAILY #90 tabs 05/31/23 omeprazole 40 mg capsule,delayed 40 mg PO DAILY #90 caps 05/31/23 release ipratropium bromide 21 mcg (0.03 2 spray intranasal BID #30 mL 08/20/23 %) nasal spray Allergies Allergy/AdvReac Type Severity Reaction Status Date / Time itraconazole [ITRACONAZOLE] Allergy Severe SHORTNESS Verified 08/20/23 11:36 OF BREATH, edema, edema Review of Systems Review of Systems: All other systems are reviewed and are negative Constitutional: Reports as per HPI and Reports no additional constitutional complaints Eyes: Reports as per HPI and Reports no additional eye complaints Reports system reviewed and no additional complaints, except as documented Cardiovascular: Reports as per HPI and Reports no additional cardiovascular complaints Respiratory: Reports as per HPI and Reports no additional respiratory complaints Gastrointestinal: Reports as per HPI and Reports no additional gastrointestinal complaints Genitourinary: Reports no additional female genitourinary complaints Musculoskeletal: Reports no additional musculoskeletal complaints Skin/Breast: Reports system reviewed and no additional complaints, except as docu Psychiatric: Reports no additional psychiatric complaints Endocrine: Reports no additional endocrine complaints Hematologic/Lymphatic: Reports no additional hematologic/lymphatic complaints Allergic/Immunologic: Reports no additional allergic/immunologic complaints Reports system reviewed and no additional complaints, except as documented and Reports Abnormal speech present PMFSH Past Medical History Onset Date is defined in the Problem List Problems that require an onset date and time if occurred within 24 hrs of arrival to the ED Aortic Dissection and Rupture; Neurologic impairment; Cardiopulmonary Arrest; Endotracheal Intubation; Insertion or Replacement of Mechanical Circulatory Assist Device Medical History Skin cancer, basal cell Left leg DVT Pancytopenia Hypertension Chronic kidney disease (CKD) stage G3a/A1, moderately decreased glomerular filtration rate (GFR) between 45-59 mL/min/1.73 square meter and albuminuria creatinine ratio less than 30 mg/g Right rotator cuff tear History of renal calculi Coronary artery disease Hypercholesterolemia BPH (benign prostatic hyperplasia) GERD (gastroesophageal reflux disease) Surgical History History of coronary artery stent placement History of repair of rotator cuff H/O basal cell carcinoma excision History of prostate biopsy History of hemorrhoidectomy Family History Family History Father Past heart attack S/P triple vessel bypass Mother Memory loss Father Prostate cancer Maternal Uncle Prostate cancer Esophagus cancer Paternal Uncle Prostate cancer Sister Lung cancer Social History Social History Household Members: Spouse, Family and Children Housing: House Are you a primary lead care manager to a significant other at home: No Do you presently have visiting nurse or other home services: No Alcohol intake: current Alcohol intake frequency: does not drink Alcohol type: wine Patient Tobacco Use Status: Never used Tobacco Smoked in Last 30 Days: No e-Cigarette/Vaping Use: Never Used Second Hand Smoke Exposure: No Use of substances other than those prescribed or required for medical reasons: No Advance Directives: No Advance Directives Information Provided: No service: No Current occupational status: retired Cognitive needs: No Hearing needs: No Vision needs: Yes Physical Exam Vital Signs: Vital Signs: Last Vital Signs Temp 98.4 F 08/26/23 23:14 Pulse 51 08/26/23 23:14 Resp 12 08/26/23 23:14 BP 162/66 H 08/26/23 23:14 Pulse Ox 98 08/26/23 23:14 O2 Del Method Room Air 08/26/23 23:14 BMI result Body Mass Index 22.5 Vital signs have been reviewed and appear to be correct. Blood pressure elevated. Heart rate normal. Respiratory rate normal. Temperature normal. Oxygen saturation normal. Appearance: Alert. Oriented X3. No acute distress. Head: Normal external exam. Normocephalic. Atraumatic. No [place] signs noted. No raccoon eyes noted Eyes: PERRLA. EOMI. Conjunctiva and sclera normal. Eyelids normal. ENT: TM's Normal. Pharynx normal. Uvula midline. Moist mucous membranes. No trismus noted. No drooling noted. No muffled voice noted. Neck: Normal inspection. Neck supple. FROM. No adenopathy. Thyroid Normal. No meningeal signs. No neck mass noted. CVS: Normal heart rate and rhythm. Heart sound normal. No murmurs noted. Pulses normal throughout. Respiratory: No respiratory distress. Painless inspiration. Breath sounds normal. No wheezes/rales/rhonchi noted. Chest nontender. No accessory muscle usage noted or decreased air movement noted. Abdomen: Soft and nontender. Bowel sounds normal in all 4 quadrants. No distention noted. No organomegaly noted. No visible injury noted. Back: No CVA tenderness. Full range of motion noted. Skin: Skin warm and dry. Normal skin color. Normal skin turgor. No rashes/lesions/lacerations noted. Extremities: No lower extremity edema. Extremities exhibit normal range of motion. Extremities nontender. Neuro: Oriented X 3. Cranial nerve exam: II-XII are grossly intact No motor deficit. No sensory deficit. Reflexes normal. Course Reevaluation(s) Reevaluation #1: 78-year-old male with coronary artery disease needed 3 stent came in for chest pain patient had 2 negative troponins Time: 00:15 Medical Decision Making Differential Diagnosis Differential Diagnoses: The differential diagnosis associated with the presentation includes ( ACS, pneumonia, pneumothorax, COVID-19 infection, RSV, influenza, electrolyte abnormality, severe anemia.) Admission/Observation Consideration of admission/observation: Escalation of care including admission/observation considered Lab Data MDM Lab Attestation statement: I reviewed the patient's lab results. 08/26/23 11:53 08/26/23 11:53 Labs: Lab Results 08/26/23 08/26/23 Range/Units 11:53 15:09 WBC 6.2 (4.8-10.8) X10*3/uL RBC 4.42 L (4.60-5.80) X10*6/uL Hgb 13.9 L (14.0-18.0) g/dl Hct 41.2 L (42.0-52.0) % MCV 93.2 (80.0-98.0) fL MCH 31.4 (27.0-33.0) pg MCHC 33.7 (31.0-36.0) g/dl RDW 14.0 (11.0-16.0) % Plt Count 152 L (160-400) X10*3/uL MPV 9.0 L (9.4-12.4) fL Immature Gran % (Auto) 0.2 (0.0-0.4) % Neut % (Auto) 67.9 (45-73) % Lymph % (Auto) 18.0 L (20-40) % [place] % (Auto) 13.2 H (2-11) % Eos % (Auto) 0.2 (0-4) % Baso % (Auto) 0.5 (0-2) % Lymph # (Auto) 1.1 L (1.2-4.9) X10*3/uL [place] # (Auto) 0.8 (0.1-1.2) X10*3/uL Eos # (Auto) 0.0 (0.0-0.4) X10*3/uL Baso # (Auto) 0.0 (0.0-0.2) X10*3/uL Abs Immat Gran (auto) 0.01 (0.00-0.03) X10*3/uL Absolute Neuts (auto) 4.2 (2.0-8.3) x10*3/uL Absolute Nucleated RBC 0.000 (0.0-0.012) X10*3/uL Nucleated RBC % (auto) 0.0 (0.0-0.2) /100WBC Sodium 139 (135-145) mmol/L Potassium 4.9 (3.3-5.1) mmol/L Chloride 102 (96-108) mmol/L Carbon Dioxide 30 H (22-29) mmol/L Anion Gap 12 (12-20) BUN 16 (9-16) mg/dL Creatinine 1.22 (0.5-1.4) mg/dL Estim Creat Clear Calc 51.5 Estimated GFR 57 Random Glucose 94 (60-115) mg/dL Calcium 9.7 (8.4-10.2) mg/dL Troponin I High Sens 3.8 4.1 (<3.5-35.0) ng/L Independent Interpretation I performed an independent interpretation of an: Plain X-Ray ( Chest; No acute intrathoracic disease.) Interpretation: EKG: Sinus bradycardia with 1st degree A-V block Incomplete right bundle branch block Left anterior fascicular block Minimal voltage criteria for LVH, may be normal variant ( Urban product ) Septal infarct (cited on or before 26-AUG-2023) Abnormal ECG When compared with ECG of 12-JUL-2021 08:31, Incomplete right bundle branch block has replaced Non-specific intra-ventricular conduction block Questionable change in initial forces of Septal leads. Radiology Impression Discussion of test interpretation with radiology: I have reviewed the radiologist's reading. Discharge Plan Discharge Clinical Impression: Chest pain Patient Disposition: Home, Self-Care Instructions: Chest Pain (ED) Prescriptions: No Action atenolol 25 mg tablet 25 mg PO DAILY Qty: 90 3RF finasteride [Proscar] 5 mg tablet 5 mg PO DAILY Qty: 90 3RF ezetimibe [Zetia] 10 mg tablet 10 mg PO DAILY Qty: 90 3RF atorvastatin [Lipitor] 40 mg tablet 40 mg PO DAILY Qty: 90 2RF omeprazole 40 mg capsule,delayed release(DR/EC) 40 mg PO DAILY Qty: 90 2RF Fish Oil mometasone [Nasonex] 50 mcg/actuation spray,non-aerosol 2 spray intranasal DAILY Rx Instructions: administer into each nostril multivitamin Tablet 1 tab PO DAILY aspirin 81 mg tablet,delayed release (DR/EC) 81 mg PO DAILY ipratropium bromide 21 mcg (0.03 %) spray,non-aerosol 2 spray intranasal BID Qty: 30 0RF Rx Instructions: administer into each nostril Referrals: Francisco Garcia MD [Primary Care Provider] - Rajan Khanna MD [Physician] -
[2023-08-27 00:38] VITALS: BP 156/76; PULSE 61; RESP 16; TEMP 36.8; O2SAT 98
== END 2023-08-27 00:41 | disposition home or self-care (01) ==
PROVIDERS: Emergency Provider Emergency Medicine; PCP Internal Medicine
DX: R07.9 Chest pain, unspecified (principal); R09.81 Nasal congestion; R00.1 Bradycardia, unspecified; I44.0 Atrioventricular block, first degree; I45.2 Bifascicular block; Z86.718 Personal history of other venous thrombosis and embolism; Z95.5 Presence of coronary angioplasty implant and graft; Z79.899 Other long term (current) drug therapy; Z79.02 Long term (current) use of antithrombotics/antiplatelets; Z79.82 Long term (current) use of aspirin
CPT/HCPCS: 36415; 71046; 80048; 84484; 85025; 93005; 99283; 99285

== ENCOUNTER → 2023-08-26 09:55 | Outpatient (BNV) | payer MEDICARE, BC, SELFPAY | PROVIDERS: PCP Internal Medicine; Visit Provider Internal Medicine Cardiovascular Disease | DX: R00.1 Bradycardia, unspecified (principal); I44.0 Atrioventricular block, first degree; I44.4 Left anterior fascicular block | CPT/HCPCS: 93010 ==

== ENCOUNTER → 2023-09-09 08:45 | Outpatient (REF) | payer MEDICARE, BC, SELFPAY ==
--- NOTE | ~2023-09-09 | NM_ITS ---
EXERCISE MYOCARDIAL PERFUSION STUDY INDICATION: Chest pain, assess for coronary disease and ischemia TECHNIQUE: The patient was brought in for an exercise perfusion study on 09/09/2023. Patient performed exercise as per Laurent protocol and was injected 25 mCi of sestamibi once target heart rate was achieved. Images were obtained using the SPECT gamma camera interlaced with the gating device. Images were obtained in supine position. Resting perfusion study was performed on 09/10/2023. Patient was administered 25 mCi of sestamibi intravenously at rest. Images were then obtained in supine position. Images were processed with the software and compared side to side in short axis, horizontal long axis and vertical long axis views. Total DLP 73mGy-cm. FINDINGS: Raw images were reviewed. The stress perfusion study showed diminished tracer uptake along the inferior wall. With CT attenuation correction, there is some improvement suggestive of diaphragmatic attenuation artifact. There is also markedly reduced tracer uptake in the basal to mid anterior wall. With CT attenuation correction, no major changes. The gated study shows normal LV systolic function with calculated LVEF of 71%. LV cavity is normal in size. The gated study shows normal wall thickening and contraction of segments. Resting study shows diminished tracer uptake along the inferior wall. With CT attenuation correction, there is reduced tracer uptake overall which is due to the heart spot in the subdiaphragmatic area. Gating at rest reveals normal wall motion with ejection fraction at 58%. The findings are consistent with fixed defect in the inferior wall which could indicate diaphragmatic attenuation artifact. Small mild defect basal to mid anterior wall with slight reversible defect. NM/NM cardiolite stress test IMPRESSION: 1. Myocardial perfusion imaging study shows small mild defect in the basal to mid anterior wall with reversible and some fixed components. Could be mixed ischemia/infarction. Fixed inferior wall defect could be from diaphragmatic attenuation artifact. 2. Gated LVEF is 71% during stress and 58% during rest. 3. Transient ischemic dilatation not present. EKG component of the test reported separately.
--- NOTE | 2023-09-09 08:48 | CA_ITS ---
Acquisition Time: 2023-09-09 08:43:56 Total Exercise Time: 00:08:57 Test Indications: Chest Pain Medications: ATENOLOL FINASTERIDE EZETIMIBE ATORVASTATIN OMEPRAZOLE Protocol: MARLYN Max HR: 126 BPM 88% of Pred: 142 BPM Max BP: 172/060 mmHG Max Work Load: 10.1 METS Exercise stress test exercise 8 min 57 sec of Marlyn protocol achieving 89% MPHR, without anginal symptoms, with isolated PVCs, PACs,and ventricular cuplets, with normotensive response to exercise, without EKG changes. Nuclear images pending, Test reviewed with Dr. Aponte Referred By: Vikki Hernandez Overread By: Vikki Hernandez
== END ==
LOC: HO.CARD 08:45
PROVIDERS: PCP Internal Medicine; Visit Provider Nurse Practitioner
DX: I25.10 Atherosclerotic heart disease of native coronary artery without angina pectoris (principal); Z95.5 Presence of coronary angioplasty implant and graft
CPT/HCPCS: 78452; 93017; A9500

== ENCOUNTER → 2023-09-09 08:48 | Outpatient (BNV) | payer MEDICARE, BC, SELFPAY | PROVIDERS: PCP Internal Medicine; Visit Provider Nurse Practitioner | DX: R07.9 Chest pain, unspecified (principal) | CPT/HCPCS: 78452; 93016; 93018 ==

== ENCOUNTER 2023-09-29 08:46 | Outpatient (AMB) | payer MEDICARE, BC, SELFPAY ==
[2023-09-29 08:48] VITALS: BP 128/64; PULSE 60; O2SAT 99; BMI 22.5
--- NOTE | 2023-09-29 08:48 | A.OFFPC_ITS ---
Vital Signs 09/29/23 08:48 Height 5 ft 11 in Weight 161 lb 0.2 oz BMI 22.5 BP 128/64 Blood Pressure Location Lt brachial Position Sitting Pulse 60 Pulse Source Pulse Oximeter Temp Source Skin Pulse Oximetry (%) 99 Oxygen Delivery Method Room Air Intake Visit Reasons: [facility] 08/27/22 Dizziness & Chest Pressure Intake Note: Patient is here to follow-up after a visit the emergency department at [facility] on 08/26/2022 with dizziness and chest pressure Daytime Babysitter Required: No Allergies itraconazole [ITRACONAZOLE] Allergy (Severe, Verified 09/29/23 08:54) SHORTNESS OF BREATH, edema, edema Tobacco use date assessed: 09/29/23 Fall risk assessment: No Falls in past year Last assessed Fall Risk: 09/29/23 Dental Screening Dental Screen Date: 09/29/23 HPI [facility] 08/27/22 Dizziness & Chest Pressure HPI Details 78-year-old male with a history of coron radha artery disease hypercholesterolemia hypertension chronic kidney disease coming in for follow- up. Last seen in July 2023. Review of the notes ER visit for syncope stood up to stretch and had pins and needles all over and fell back no head trauma blood count 08/22/2023 with anemia at 12.[address] is negative. Patient also just had a stress test done August 2023 revealing myocardial perfusion small mid defect in the basal to mid anterior wall with reversible and some fixed defects mixed ischemia and infarction left ventricular ejection fraction 71% in 58% during rest transient ischemic dilatation at present. Patient also follows up with Nephrology diagnosis of IgA nephropathy likely given microscopic hematuria hypertension and chronic kidney disease no need for renal biopsy presently advised fish oil avoid NSAIDs. attacks chest and abdomen - gas and chest pressure- cramps R leg, on stading stood up but lost consiousness- work up was negative. has post nasal drip also. advised allergy med [facility] Medical History (Updated 09/29/23 @ 09:38 by Francisco Garcia MD) Skin cancer, basal cell Left leg DVT Pancytopenia Hypertension Chronic kidney disease (CKD) stage G3a/A1, moderately decreased glomerular filtration rate (GFR) between 45-59 mL/min/1.73 square meter and albuminuria creatinine ratio less than 30 mg/g Right rotator cuff tear History of renal calculi Coronary artery disease Hypercholesterolemia BPH (benign prostatic hyperplasia) GERD (gastroesophageal reflux disease) Surgical History (Updated 08/27/23 @ 13:34 by Vikki Hernandez NP) History of coronary artery stent placement History of repair of rotator cuff H/O basal cell carcinoma excision History of prostate biopsy History of hemorrhoidectomy Family History Father Past heart attack S/P triple vessel bypass Mother Memory loss Father Prostate cancer Maternal Uncle Prostate cancer Esophagus cancer Paternal Uncle Prostate cancer Sister Lung cancer Social History Household Members: Spouse, Family and Children Housing: House Are you a primary health care marketing specialist to a significant other at home: No Do you presently have visiting nurse or other home services: No Alcohol intake: current Alcohol intake frequency: does not drink Alcohol type: wine Patient Tobacco Use Status: Never used Tobacco e-Cigarette/Vaping Use: Never Used Second Hand Smoke Exposure: No service: No Current occupational status: retired Cognitive needs: No Hearing needs: No Vision needs: Yes Questionnaire PHQ-9 Over the last 2 weeks, how often have you been bothered by any of the following problems? 1. Little interest or pleasure in doing things: not at all 2. Feeling down, depressed, or hopeless: not at all 3. Trouble falling or staying asleep, or sleeping too much: not at all 4. Feeling tired or having little energy: not at all 5. Poor appetite or overeating: not at all 6. Feeling bad about yourself - or that you are a failure or have let yourself or your family down: not at all 7. Trouble concentrating on things, such as reading the newspaper or watching television: not at all 8. Moving or speaking so slowly that other people could have noticed. Or the opposite - being so fidgety or restless that you have been moving around a lot more than usual: not at all 9. Thoughts that you would be better off or of hurting yourself in some way: not at all Total score: 0 Depression Screening Interpretation: Negative Depression Screening Done: Yes Source: Developed by Drs. Star Palmer, Alyssia Muniz, Abe Mai and colleagues, with an educational sal from [employer]. Thrive Questionnaire Date Thrive assessed: 09/29/23 I am a: Patient What is your living situation today?: I have a steady place to live Within the past 12 months, did the food you bought not last and you didn't have the money to get more?: Never true Within the past 12 months, did you worry whether your food would run out before you got money to buy more?: Never true Do you have trouble paying for medicines?: No Do you have trouble getting transportation to medical appointments?: No Do you have trouble paying your heating and electricity bill?: No Do you have trouble taking care of your child, family member or friend?: No Do you have trouble with day-to-day activities such as bathing, preparing meals, shopping, managing finances, etc.?: No Are you currently unemployed and looking for a job?: No Are you interested in more education?: No Please select the resources that you would like help with: None THRIVE Score: 0 AUDIT C Alcohol Use Questionnaire (AUDIT-C) 1. How often do you have a drink containing alcohol?: Monthly or less 2. How many drinks containing alcohol do you have on a typical day when you are drinking?: 1 or 2 3. How often do you have six or more drinks on one occasion?: Never Total Score: 1 OMAR-7 AMB Questionnaire OMAR-7 Date OMAR - 7 assessed: 09/29/23 Feeling nervous, anxious, or on edge: 0 = Not at all Not being able to stop or control worryin = Not at all Worrying too much about different things: 0 = Not at all Trouble relaxin = Not at all Being so restless that it is hard to sit still: 0 = Not at all Becoming easily annoyed or irritable: 0 = Not at all Feeling afraid as if something awful might happen: 0 = Not at all Total OMAR-7 score (0-4 normal; 5-9 mild; 10-14 moderate; 15-21 severe): 0 Source: Developed by Drs. Star Palmer, Alyssia Muniz, Abe Mai and colleagues, with an educational sal from [employer]. Physical exam (Primary Care) Vital Signs: Last Vital Signs Pulse 60 09/29/23 08:48 BP 128/64 09/29/23 08:48 Pulse Ox 99 09/29/23 08:48 Oxygen Delivery Method Room Air 09/29/23 08:48 BMI result Body Mass Index 22.5 Tobacco/Smoking Status: Tobacco use Status Tobacco use date assessed 09/29/23 09/29/23 08:56 Patient Tobacco Use Status Never used Tobacco 09/29/23 08:48 e-Cigarette/Vaping Use Never Used 09/29/23 08:48 PHQ-9: PHQ-9 Score PHQ-9: Total score 0 09/29/23 08:56 Depression Screening Interpretation: Negative Thrive Assessment: Date of Thrive Assessment Date Thrive assessed 09/29/23 09/29/23 08:56 Const General: alert; No acute distress Eyes Conjunctivae: conjunctivae normal Resp Auscultation: clear to auscultation bilaterally Cardio Rate: regular rate Rhythm: regular rhythm GI Inspection: Yes normal to inspection Extrem General: Yes normal to inspection and No edema Assessment and Plan Assessment & Plan (1) Coronary artery disease: Comment: Stent placement 2003, asymptomatic, nuclear stress was negative CAD angiogram Dec 22 1016-echo February 2020 EF 60-65% Code(s): I25.10 - Atherosclerotic heart disease of [place] coronary artery without angina pectoris Qualifiers: Coronary Disease-Associated Artery/Lesion type: [place] artery [place] vs. transplanted heart: [place] heart Associated angina: without angina Qualified Code(s): I25.10 - Atherosclerotic heart disease of [place] coronary artery without angina pectoris Plan: Control the cholesterol, weight, blood pressure presently on aspirin 81 mg once a day (2) Hypertension: Code(s): I10 - Essential (primary) hypertension Qualifiers: Hypertension type: essential hypertension Qualified Code(s): I10 - Essential (primary) hypertension Plan: Continue with blood pressure medication. Decrease salt intake and exercise patient takes atenolol 25 mg once a day (3) Chronic kidney disease (CKD) stage G3a/A1, moderately decreased glomerular filtration rate (GFR) between 45-59 mL/min/1.73 square meter and albuminuria creatinine ratio less than 30 mg/g: Code(s): N18.31 - Chronic kidney disease, stage 3a Plan: Keep well hydrated avoid NSAIDs patient continues to follow-up with Nephrology (4) Hypercholesterolemia: Code(s): E78.00 - Pure hypercholesterolemia, unspecified Plan: Avoid fried foods, chicken skin, eggs, butter margarine, pastries and meat. Be it pork or beef they have a lot of cholesterol LDL goal of less than 70 on Zetia and atorvastatin (5) GERD (gastroesophageal reflux disease): Code(s): K21.9 - Gastro-esophageal reflux disease without esophagitis Qualifiers: Esophagitis presence: without esophagitis Qualified Code(s): K21.9 - Gastro-esophageal reflux disease without esophagitis Plan: Avoid the foods that causes that usually spicy foods, tomato products, juices, coffee, soda and foods that your sensitive to. After eating do not lie down, allow 3-4 hours before in lie down. And keep the head of bed above 30 degrees to avoid the acid from going up. (6) BPH (benign prostatic hyperplasia): Code(s): N40.0 - Benign prostatic hyperplasia without lower urinary tract symptoms Qualifiers: Lower urinary tract symptom presence: symptoms present Lower urinary tract symptom detail: urinary frequency Qualified Code(s): N40.1 - Benign prostatic hyperplasia with lower urinary tract symptoms; R35.0 - Frequency of micturition Plan: Continue with finasteride 5 mg once a day (7) Syncope: Code(s): R55 - Syncope and collapse Plan: Workup so far has been good patient just recently had a stress test and spoken with Cardiology presently no further workup needed (8) Bloated abdomen: Code(s): R14.0 - Abdominal distension (gaseous) Plan: advised to hold off dairy, and if persist will need GI advised to increase oral fluids (9) Nasal congestion: Code(s): R09.81 - Nasal congestion Plan: do allergy med like Claritin 10 mg or laurence 180 mg Coding Level of Care Code Est Pt Level 4 (21149) Diagnoses Coronary artery disease involving [place] coronary artery of [place] heart without angina pectoris I25.10 Coronary Disease-Associated Artery/Lesion type: [place] artery [place] vs. transplanted heart: [place] heart Associated angina: without angina Essential hypertension I10 Hypertension type: essential hypertension Chronic kidney disease (CKD) stage G3a/A1, moderately decreased glomerular filtration rate (GFR) between 45-59 mL/min/1.73 square meter and albuminuria creatinine ratio less than 30 mg/g N18.31 Hypercholesterolemia E78.00 Gastroesophageal reflux disease without esophagitis K21.9 Esophagitis presence: without esophagitis Benign prostatic hyperplasia with urinary frequency N40.1; R35.0 Lower urinary tract symptom presence: symptoms present Lower urinary tract symptom detail: urinary frequency Syncope R55 Bloated abdomen R14.0 Nasal congestion R09.81
== END 2023-09-29 09:49 | disposition home or self-care (01) ==
PROVIDERS: PCP Internal Medicine; Visit Provider Internal Medicine
DX: I25.10 Atherosclerotic heart disease of native coronary artery without angina pectoris (principal); I12.9 Hypertensive chronic kidney disease with stage 1 through stage 4 chronic kidney disease, or unspecified chronic kidney disease; N18.31 Chronic kidney disease, stage 3a; E78.00 Pure hypercholesterolemia, unspecified; K21.9 Gastro-esophageal reflux disease without esophagitis; N40.1 Benign prostatic hyperplasia with lower urinary tract symptoms; R35.0 Frequency of micturition; R55 Syncope and collapse; R14.0 Abdominal distension (gaseous); R09.81 Nasal congestion
CPT/HCPCS: 99214

== ENCOUNTER 2023-10-08 08:53 | Emergency (ER) | payer MEDICARE, BC, SELFPAY ==
--- NOTE | ~2023-10-08 | XR_ITS ---
EXAMINATION: XR CHEST CLINICAL INFORMATION: Chest pain COMPARISON: Chest x-ray on 08/26/2023 TECHNIQUE: 2 views of the chest were obtained. FINDINGS: vascularity. LUNGS: Lungs are hyperinflated with flat hemidiaphragms and clear. No pneumothorax is seen. BONES: Bony skeleton is intact. XR/XR chest 2V IMPRESSION: 1. Unchanged no radiographic signs of acute cardiopulmonary process. 2. Probable persistent COPD.
--- NOTE | 2023-10-08 08:55 | ECG_ITS ---
Test Reason : CHEST PRESSURE Blood Pressure : / mmHG Vent. Rate : 064 BPM Atrial Rate : 064 BPM P-R Int : 226 ms QRS Dur : 114 ms QT Int : 404 ms P-R-T Axes : 084 -49 075 degrees QTc Int : 416 ms Sinus rhythm with 1st degree A-V block Incomplete right bundle branch block Septal infarct Left anterior fascicular block Abnormal ECG When compared with ECG of 26-AUG-2023 10:17, No significant changes seen Referred By: Generic ED Physician Electronically Signed By:Sriram Peace
[2023-10-08 09:11] VITALS: BP 155/85; PULSE 69; RESP 16; TEMP 36.7; O2SAT 100; BMI 22.3
[2023-10-08 09:15] LABS: Basophils Percent Auto 0.9 % (0-2); Eosinophils Percent Auto 0.7 % (0-4); Hematocrit 37.3 % (42.0-52.0); Hemoglobin 12.4 g/dl (14.0-18.0); Imm Gran Abs Auto 0.01 X10*3/uL (0.00-0.03); Imm Gran Pct Auto 0.2 % (0.0-0.4); Lymphocytes Absolute Auto 1.1 X10*3/uL (1.2-4.9); Lymphocytes Percent Auto 26.3 % (20-40); MANUAL DIFF FLAG NO; Mean Corpuscular HGB Conc 33.2 g/dl (31.0-36.0); Mean Corpuscular Hemoglobin 30.9 pg (27.0-33.0); Mean Platelet Volume 9.2 fL (9.4-12.4); Monocytes Absolute Auto 0.5 X10*3/uL (0.1-1.2); Monocytes Percent Auto 10.6 % (2-11); Neutrophils Absolute Auto 2.7 x10*3/uL (2.0-8.3); Neutrophils Percent Auto 61.3 % (45-73); Platelet Count 154 X10*3/uL (160-400); Red Blood Count 4.01 X10*6/uL (4.60-5.80); Red Cell Distribution Width 13.6 % (11.0-16.0); White Blood Count 4.3 X10*3/uL (4.8-10.8)
--- NOTE | 2023-10-08 09:25 | ECG_ITS ---
Test Reason : REPEAT Blood Pressure : / mmHG Vent. Rate : 059 BPM Atrial Rate : 059 BPM P-R Int : 222 ms QRS Dur : 116 ms QT Int : 422 ms P-R-T Axes : 082 -52 072 degrees QTc Int : 417 ms Sinus bradycardia with 1st degree A-V block Incomplete right bundle branch block Left anterior fascicular block Cannot rule out Anterior infarct , age undetermined Abnormal ECG When compared with ECG of 08-OCT-2023 09:00, Minimal criteria for Anterior infarct are now Present Referred By: Generic ED Physician Electronically Signed By:Sriram Peace
[2023-10-08 09:32] LABS: Anion Gap 12 (12-20); Blood Urea Nitrogen 19 mg/dL (9-16); Calcium 9.5 mg/dL (8.4-10.2); Carbon Dioxide 29 mmol/L (22-29); Chloride 101 mmol/L (96-108); Creatinine Clr Calc Pharmacy 42.8; Estimated Glomerular Filt Rate 47; Glucose Random 127 mg/dL (60-115); Potassium 4.3 mmol/L (3.3-5.1); Sodium 138 mmol/L (135-145)
[2023-10-08 09:41] LABS: Troponin-I High Sensitivity 3.6 ng/L (<3.5-35.0)
[2023-10-08 10:04] VITALS: BP 163/73; PULSE 57; RESP 14; TEMP 36.6; O2SAT 98
[2023-10-08 10:17] LABS: Lipase 24 U/L (8-78)
[2023-10-08 10:30] LABS: COVID-19 Test Negative (Negative); IDNOW Serial# 152EDE1D
[2023-10-08 10:41] LABS: B Type Natriuretic Peptide 37 pg/mL (<100)
--- NOTE | 2023-10-08 10:52 | ED.CHESTPAIN ---
HPI - Chest Pain General Chief Complaint: Chest Pain Stated Complaint: chest pressure Time Seen by Provider: 10/08/23 09:59 Source: patient Mode of arrival: ambulatory History of Present Illness HPI narrative: 78-year-old male with presentation for chest pressure throughout the night but not associated with any diaphoresis, shortness of breath or nausea and denies any radiation. Also, describes it as a burning quality. Patient states that at times he does experience lightheadedness. Patient's history is also significant for hypertension, CAD with 3 stents and has recently had a nuclear stress test which he states was reported to him as benign in nature. Related Data Home Medications Medication Instructions Recorded Confirmed aspirin 81 mg tablet,delayed 81 mg PO DAILY 07/23/20 08/20/23 release mometasone 50 mcg/actuation nasal 2 spray intranasal DAILY 07/23/20 08/20/23 spray (Nasonex) multivitamin 1 tab PO DAILY 07/23/20 08/20/23 Fish Oil 03/26/23 08/20/23 Previous Rx's Medication Instructions Recorded atenolol 25 mg tablet 25 mg PO DAILY #90 tabs 11/29/22 finasteride 5 mg tablet (Proscar) 5 mg PO DAILY #90 tabs 02/28/23 ezetimibe 10 mg tablet (Zetia) 10 mg PO DAILY #90 tabs 04/23/23 atorvastatin 40 mg tablet (Lipitor) 40 mg PO DAILY #90 tabs 05/31/23 omeprazole 40 mg capsule,delayed 40 mg PO DAILY #90 caps 05/31/23 release ipratropium bromide 21 mcg (0.03 2 spray intranasal BID #30 mL 08/20/23 %) nasal spray Allergies Allergy/AdvReac Type Severity Reaction Status Date / Time itraconazole [ITRACONAZOLE] Allergy Severe SHORTNESS Verified 09/29/23 08:54 OF BREATH, edema, edema Review of Systems Review of Systems: Pertinent positives and negatives as stated in HPI [facility] Past Medical History Source: nursing notes reviewed Medical History Skin cancer, basal cell Left leg DVT Pancytopenia Hypertension Chronic kidney disease (CKD) stage G3a/A1, moderately decreased glomerular filtration rate (GFR) between 45-59 mL/min/1.73 square meter and albuminuria creatinine ratio less than 30 mg/g Right rotator cuff tear History of renal calculi Coronary artery disease Hypercholesterolemia BPH (benign prostatic hyperplasia) GERD (gastroesophageal reflux disease) Surgical History History of coronary artery stent placement History of repair of rotator cuff H/O basal cell carcinoma excision History of prostate biopsy History of hemorrhoidectomy Family History Family History Father Past heart attack S/P triple vessel bypass Mother Memory loss Father Prostate cancer Maternal Uncle Prostate cancer Esophagus cancer Paternal Uncle Prostate cancer Sister Lung cancer Social History Social History Household Members: Spouse, Family and Children Housing: House Are you a primary director of home care hospice to a significant other at home: No Do you presently have visiting nurse or other home services: No Alcohol intake: current Alcohol intake frequency: does not drink Alcohol type: wine Patient Tobacco Use Status: Never used Tobacco e-Cigarette/Vaping Use: Never Used Second Hand Smoke Exposure: No Advance Directives: No Advance Directives Information Provided: No service: No Current occupational status: retired Cognitive needs: No Hearing needs: No Vision needs: Yes Physical Exam Vital Signs: Vital Signs: Last Vital Signs Temp 97.8 F 10/08/23 12:00 Pulse 65 10/08/23 12:00 Resp 13 10/08/23 12:00 BP 138/80 10/08/23 12:00 Pulse Ox 97 10/08/23 12:00 O2 Del Method Room Air 10/08/23 12:00 BMI result Body Mass Index 22.3 VITAL SIGNS: Reviewed. GENERAL: Well developed, well nourished, in no acute distress. HEAD: Normocephalic/atraumatic EYES: PERRLA, EOMI EARS: Ext canals without abnormality NOSE: Nares patent bilateral OROPHARYNX: no oral lesions noted, posterior pharynx clear NECK: Supple, no adenopathy LUNGS: Normal breath sounds. No adventitious sounds or accessory muscle use. SpO2<98> CARDIOVASCULAR: Regular rate and rhythm without noted murmurs ABDOMEN: Soft, non-tender, non-distended with bowel sounds. MUSCULOSKELETAL: No tenderness, deformities, or effusions noted on gross inspection. EXTREMITIES: No cyanosis, clubbing or edema. SKIN: Inspection of the skin reveals no rashes NEUROLOGIC: Alert and oriented x 4. Strength and sensation to light touch were grossly intact x 4. Medications Administered Discontinued Medications Generic Name Dose Route Start Last Admin Trade Name Monika PRN Reason Stop Dose Admin Al Hydroxide/Mg Hydroxide 30 ml 10/08/23 11:45 10/08/23 11:59 Magnesium Hydrox/Alum Hydrox 30 Ml Oral.Susp PO 10/08/23 11:46 30 ml ONCE ONE Administration Lidocaine HCl 10 ml 10/08/23 11:45 10/08/23 11:59 Lidocaine Hcl Viscous 2 % 15 Ml Solution MUCOUS MEM 10/08/23 11:46 10 ml ONCE ONE Administration Nitroglycerin 0.4 mg 10/08/23 11:13 10/08/23 11:28 Nitroglycerin 0.4 Mg Tab.Subl SUBLINGUAL 10/08/23 11:14 0.4 mg ONCE ONE Administration Medical Decision Making Medical Decision Making MDM Narrative: 78-year-old male with history and clinical presentation, DDX: ACS, acid reflux, gastritis, viral illness, lower clinical suspicion for cholecystitis/pancreatitis. HEART Score: 4 I reviewed all investigations and hematologic indices are stable with leukopenia/thrombocytopenia for which he is followed by Dr. Cerda/normocytic anemia. Chemistry indices demonstrate PEGGY and chronically detectable high sensitivity troponin with some subtle/non dynamic changes in V1/V2. Viral testing negative for COVID 19. Chest x-ray negative for infiltrate or venous congestion otherwise my interpretation is in agreement with radiology's impression. 1110: Dr Peace rec nitro SL, and evaluated the patient at bedside. 1137: After patient evaluation Dr. Pecae thinks that as long as patient improves after the sublingual nitro and GI cocktail that he is stable for discharge and outpatient follow-up. On re-evaluation patient is feeling much improved and he is otherwise discharged home in stable condition. Differential Diagnosis Differential Diagnoses: The differential diagnosis associated with the presentation includes Please see the discussion above Admission/Observation Consideration of admission/observation: Escalation of care including admission/observation considered Please see the discussion above Consult Healthcare Provider Management of the patient was discussed with: De Alcoholizer Please see the discussion above Lab Data MDM Lab Attestation statement: I reviewed the patient's lab results. Please see the discussion above 10/08/23 09:09 10/08/23 09:09 Labs: Lab Results 02/16/24 02/16/24 Range/Units 09:09 10:07 WBC 4.3 L (4.8-10.8) X10*3/uL RBC 4.01 L (4.60-5.80) X10*6/uL Hgb 12.4 L (14.0-18.0) g/dl Hct 37.3 L (42.0-52.0) % MCV 93.0 (80.0-98.0) fL MCH 30.9 (27.0-33.0) pg MCHC 33.2 (31.0-36.0) g/dl RDW 13.6 (11.0-16.0) % Plt Count 154 L (160-400) X10*3/uL MPV 9.2 L (9.4-12.4) fL Immature Gran % (Auto) 0.2 (0.0-0.4) % Neut % (Auto) 61.3 (45-73) % Lymph % (Auto) 26.3 (20-40) % [place] % (Auto) 10.6 (2-11) % Eos % (Auto) 0.7 (0-4) % Baso % (Auto) 0.9 (0-2) % Lymph # (Auto) 1.1 L (1.2-4.9) X10*3/uL [place] # (Auto) 0.5 (0.1-1.2) X10*3/uL Eos # (Auto) 0.0 (0.0-0.4) X10*3/uL Baso # (Auto) 0.0 (0.0-0.2) X10*3/uL Abs Immat Gran (auto) 0.01 (0.00-0.03) X10*3/uL Absolute Neuts (auto) 2.7 (2.0-8.3) x10*3/uL Absolute Nucleated RBC 0.000 (0.0-0.012) X10*3/uL Nucleated RBC % (auto) 0.0 (0.0-0.2) /100WBC Sodium 138 (135-145) mmol/L Potassium 4.3 (3.3-5.1) mmol/L Chloride 101 (96-108) mmol/L Carbon Dioxide 29 (22-29) mmol/L Anion Gap 12 (12-20) BUN 19 H (9-16) mg/dL Creatinine 1.46 H (0.5-1.4) mg/dL Estim Creat Clear Calc 42.8 Estimated GFR 47 Random Glucose 127 H (60-115) mg/dL Calcium 9.5 (8.4-10.2) mg/dL Troponin I High Sens 3.6 (<3.5-35.0) ng/L B-Natriuretic Peptide 37 (<100) pg/mL Lipase 24 (8-78) U/L COVID-19 (ROBIN) Negative (Negative) COVID-19 Clin Com See Note Independent Interpretation I performed an independent interpretation of an: EKG Interpretation: 0 900: Sinus rhythm with first-degree AV block, HR-64, no STEMI, but there are ST changes at V1/V2 and otherwise QTC is within normal limits. 0943: Sinus bradycardia with first-degree AV block, HR-59, no STEMI, ST changes persistent V1 and V2, QTC remains within normal limits. No dynamic changes Radiology Impression Discussion of test interpretation with radiology: I have reviewed the radiologist's reading. Radiologist Impression: Please see the discussion above External Record Review External record reviewed: Outpatient record, Prior outpatient labs and Prior outpatient radiology Chronic Conditions Patient?s care impacted by: Hypertension Critical Care Time Critical Care Time Critical Care Time: Yes Total Critical Care Time: 60 Attestation: I personally attest to this time spent taking care of the patient. Discharge Plan Discharge Clinical Impression: Atypical chest pain, Acid reflux, Esophageal spasm Patient Disposition: Home, Self-Care Instructions: Diet for Stomach Ulcers and Gastritis (ED), Indigestion (ED), Esophageal Spasm (ED) Additional Instructions: 1. Resume all home medications as prescribed. 2. Recommend using maximum strength Maalox as needed for symptom control, but if this does not help please do not hesitate to return to the emergency room. 3. Recommend follow-up with your primary care doctor. Prescriptions: No Action atenolol 25 mg tablet 25 mg PO DAILY Qty: 90 3RF finasteride [Proscar] 5 mg tablet 5 mg PO DAILY Qty: 90 3RF ezetimibe [Zetia] 10 mg tablet 10 mg PO DAILY Qty: 90 3RF atorvastatin [Lipitor] 40 mg tablet 40 mg PO DAILY Qty: 90 2RF omeprazole 40 mg capsule,delayed release(DR/EC) 40 mg PO DAILY Qty: 90 2RF Fish Oil mometasone [Nasonex] 50 mcg/actuation spray,non-aerosol 2 spray intranasal DAILY Rx Instructions: administer into each nostril multivitamin Tablet 1 tab PO DAILY aspirin 81 mg tablet,delayed release (DR/EC) 81 mg PO DAILY ipratropium bromide 21 mcg (0.03 %) spray,non-aerosol 2 spray intranasal BID Qty: 30 0RF Rx Instructions: administer into each nostril Referrals: Po,Francisco Tucker MD [Primary Care Provider] -
[2023-10-08 11:28] VITALS: BP 130/65; PULSE 65
[2023-10-08] MEDS: Nitroglycerin 0.4 MG TAB.SUBL SUBLINGUAL (11:28)
--- NOTE | 2023-10-08 11:48 | PM.CNCAR ---
History of Present Illness History of Present Illness Date of Service: 10/08/23 Requesting physician: Nicole Felton Chief complaint: chest pressure Narrative: 78-year-old gentleman who we have been asked to assess for chest discomfort. He has known history of coronary disease in the past and had PCI performed 20 years ago as well as in 2013. He said he was experiencing a burning sensation in his chest along with pressure. He said he had GI workup initially and then was referred for diagnostic angiography when he had 2 stents placed. He said subsequent to that he continued to have chest discomfort and came to the emergency department. He has been to the ER recently a few time without any obvious cause found and he improved with GI cocktail. . Recently had stress testing done in August where he was able to exercise to 10 metabolic equivalent without getting any chest discomfort. Nuclear perfusion imaging showed inferior as well as small mild defect in the basal to mid anterior wall. Inferior wall defect was thought to be diaphragmatic attenuation. Basal to mid anterior wall was read as mixed ischemia/infarction. He exercises regularly and goes to gym 3 times a week and does not get any symptoms with exercise. As mentioned during stress test he did not have any symptoms and these symptoms happen randomly. He has had overnight he had hours and hours of discomfort. His biomarkers are completely normal despite having prolonged chest discomfort. [facility] Past Medical History Medical History Skin cancer, basal cell Left leg DVT Pancytopenia Hypertension Chronic kidney disease (CKD) stage G3a/A1, moderately decreased glomerular filtration rate (GFR) between 45-59 mL/min/1.73 square meter and albuminuria creatinine ratio less than 30 mg/g Right rotator cuff tear History of renal calculi Coronary artery disease Hypercholesterolemia BPH (benign prostatic hyperplasia) GERD (gastroesophageal reflux disease) Family History Family History Father Past heart attack S/P triple vessel bypass Mother Memory loss Father Prostate cancer Maternal Uncle Prostate cancer Esophagus cancer Paternal Uncle Prostate cancer Sister Lung cancer Surgical History Surgical History History of coronary artery stent placement History of repair of rotator cuff H/O basal cell carcinoma excision History of prostate biopsy History of hemorrhoidectomy Social History Social History Household Members: Spouse, Family and Children Housing: House Are you a primary home care and home health aides teacher to a significant other at home: No Do you presently have visiting nurse or other home services: No Alcohol intake: current Alcohol intake frequency: does not drink Alcohol type: wine Patient Tobacco Use Status: Never used Tobacco e-Cigarette/Vaping Use: Never Used Second Hand Smoke Exposure: No Advance Directives: No Advance Directives Information Provided: No service: No Current occupational status: retired Cognitive needs: No Hearing needs: No Vision needs: Yes Meds Allergies Allergy/AdvReac Type Severity Reaction Status Date / Time itraconazole [ITRACONAZOLE] Allergy Severe SHORTNESS Verified 09/29/23 08:54 OF BREATH, edema, edema Home Medications Medication Instructions Recorded Confirmed Last Taken Type aspirin 81 mg tablet,delayed 81 mg PO DAILY 07/23/20 08/20/23 Unknown History release mometasone 50 mcg/actuation nasal 2 spray intranasal DAILY 07/23/20 08/20/23 Unknown History spray (Nasonex) multivitamin 1 tab PO DAILY 07/23/20 08/20/23 Unknown History Fish Oil 03/26/23 08/20/23 Unknown History Physical Exam Vital Signs: Vital Signs: Last Vital Signs Temp 97.8 F 10/08/23 10:04 Pulse 57 10/08/23 10:04 Resp 14 10/08/23 10:04 BP 163/73 H 10/08/23 10:04 Pulse Ox 98 10/08/23 10:04 O2 Del Method Room Air 10/08/23 10:04 BMI result Body Mass Index 22.3 GENERAL APPEARANCE: in no acute distress, pleasant. NECK: no carotid bruit, no jugular venous distention. SKIN: no suspicious lesions, warm and dry. HEART: no murmurs, regular rate and rhythm. LUNGS: clear to auscultation bilaterally. ABDOMEN: soft, nontender. EXTREMITIES: no edema. PERIPHERAL PULSES: equal. NEUROLOGIC: No gross deficits, AAO X 3 Objective Labs and Meds 10/08/23 09:09 10/08/23 09:09 Lab results: Laboratory Results - last 24 hr 10/08/23 10/08/23 09:09 10:07 WBC 4.3 L RBC 4.01 L Hgb 12.4 L Hct 37.3 L MCV 93.0 MCH 30.9 MCHC 33.2 RDW 13.6 Plt Count 154 L MPV 9.2 L Immature Gran % (Auto) 0.2 Neut % (Auto) 61.3 Lymph % (Auto) 26.3 [place] % (Auto) 10.6 Eos % (Auto) 0.7 Baso % (Auto) 0.9 Lymph # (Auto) 1.1 L [place] # (Auto) 0.5 Eos # (Auto) 0.0 Baso # (Auto) 0.0 Abs Immat Gran (auto) 0.01 Absolute Neuts (auto) 2.7 Absolute Nucleated RBC 0.000 Nucleated RBC % (auto) 0.0 Sodium 138 Potassium 4.3 Chloride 101 Carbon Dioxide 29 Anion Gap 12 BUN 19 H Creatinine 1.46 H Estim Creat Clear Calc 42.8 Estimated GFR 47 Random Glucose 127 H Calcium 9.5 Troponin I High Sens 3.6 B-Natriuretic Peptide 37 Lipase 24 COVID-19 (ROBIN) Negative COVID-19 Clin Com See Note Imaging Radiologist's impression: Impressions Chest X-Ray 10/08/23 09:25 IMPRESSION: 1. Unchanged no radiographic signs of acute cardiopulmonary process. 2. Probable persistent COPD. Assessment and Plan (1) Chest pain: Status: Acute Plan 78-year-old gentleman who we have been asked to see for chest pain. He has background of coronary disease as mentioned above. The chest discomfort is quite random and has no exertional pattern. During treadmill stress test he had no exertional discomfort. He goes to gym 3 times a week and during exercise gets no symptoms and then randomly gets prolonged episodes of burning chest discomfort. His biomarkers are normal. EKGs not showing any dynamic changes. He is saying that GI cocktail helps his symptoms. Blood pressure is elevated. Try GI cocktail. I think his symptoms are likely GI in origin. He can have further discussion and workup as outpatient with Dr. Khanna. Thank you for allowing me to participate in the care of your patient. Please feel free to contact me if you have any questions. Procedures Date of Service Date of Service: 10/08/23
[2023-10-08] MEDS: Magnesium Hydrox/Alum Hydrox 30 ML ORAL.SUSP PO (11:59)
[2023-10-08] MEDS: Lidocaine HCl Viscous 2 % 15 ML SOLUTION 10 ML MUCOUS MEM (11:59)
[2023-10-08 12:00] VITALS: BP 138/80; PULSE 65; RESP 13; TEMP 36.6; O2SAT 97
== END 2023-10-08 13:06 | disposition home or self-care (01) ==
PROVIDERS: Emergency Provider Student in an Organized Health Care Education/Training Program; PCP Internal Medicine
DX: R07.89 Other chest pain (principal); R06.02 Shortness of breath; K21.9 Gastro-esophageal reflux disease without esophagitis; R11.2 Nausea with vomiting, unspecified; I25.10 Atherosclerotic heart disease of native coronary artery without angina pectoris; K22.4 Dyskinesia of esophagus; Z11.52 Encounter for screening for COVID-19; Z79.899 Other long term (current) drug therapy
CPT/HCPCS: 36415; 71046; 80048; 83690; 83880; 84484; 85025; 87635; 93005; 99284

== ENCOUNTER → 2023-10-08 11:21 | Outpatient (BNV) | payer MEDICARE, BC, SELFPAY | PROVIDERS: Emergency Provider Student in an Organized Health Care Education/Training Program; PCP Internal Medicine; Visit Provider Internal Medicine Cardiovascular Disease | DX: R07.9 Chest pain, unspecified (principal); R94.31 Abnormal electrocardiogram [ECG] [EKG] | CPT/HCPCS: 93010; 99222 ==

== ENCOUNTER 2023-10-26 14:32 | Outpatient (AMB) | payer MEDICARE, BC, SELFPAY ==
[2023-10-26 14:34] VITALS: BP 114/76; PULSE 48; BMI 22.1
--- NOTE | 2023-10-26 14:34 | A.OFFVIS_ITS ---
Intake Vital Signs 10/26/23 14:34 Height 5 ft 11 in Weight 158 lb 11.725 oz BMI 22.1 BP 114/76 Blood Pressure Location Lt brachial Position Sitting Pulse 48 L Intake Visit Reasons: follow-up post [facility] dc and mibi Intake Note: Follow-up post [facility] dc after mibi feeling good now Client Experience Consultant Required: No Allergies itraconazole [ITRACONAZOLE] Allergy (Severe, Verified 09/29/23 08:54) SHORTNESS OF BREATH, edema, edema Medication List - Last Reconciled 10/26/23 by Rajan Khanna MD aspirin 81 mg PO DAILY atenolol 25 mg PO DAILY atorvastatin (Lipitor) 40 mg PO DAILY ezetimibe (Zetia) 10 mg PO DAILY finasteride (Proscar) 5 mg PO DAILY [Fish Oil ] ipratropium bromide 2 sprays intranasal BID mometasone 50 mcg/actuation (Nasonex) 2 sprays intranasal DAILY multivitamin 1 tab PO DAILY omeprazole 40 mg PO DAILY HPI HPI Comments History of Present Illness Details Roverto comes for follow-up. Recently was having significant retrosternal chest discomfort which she was not clear. He subsequently underwent a stress test which showed small size mild intensity partially rev ersible defect in the basal and mid anterior wall which is similar to his prior stress testing. He subsequently recently traveled to [place] and with activity had no significant chest discomfort. He then tried some GI therapy and his symptoms have completely improved and he has had no recurrent symptoms of chest discomfort. He has been taking all his medications including aspirin, high-intensity statin therapy with ezetimibe and atenolol. Denies any heart failure symptoms. [facility] Medical History Skin cancer, basal cell Left leg DVT Pancytopenia Hypertension Chronic kidney disease (CKD) stage G3a/A1, moderately decreased glomerular filtration rate (GFR) between 45-59 mL/min/1.73 square meter and albuminuria creatinine ratio less than 30 mg/g Right rotator cuff tear History of renal calculi Coronary artery disease Hypercholesterolemia BPH (benign prostatic hyperplasia) GERD (gastroesophageal reflux disease) Surgical History History of coronary artery stent placement History of repair of rotator cuff H/O basal cell carcinoma excision History of prostate biopsy History of hemorrhoidectomy Family History Father Past heart attack S/P triple vessel bypass Mother Memory loss Father Prostate cancer Maternal Uncle Prostate cancer Esophagus cancer Paternal Uncle Prostate cancer Sister Lung cancer Social History Household Members: Spouse, Family and Children Housing: House Are you a primary managed care director to a significant other at home: No Do you presently have visiting nurse or other home services: No Alcohol intake: current Alcohol intake frequency: does not drink Alcohol type: wine Patient Tobacco Use Status: Never used Tobacco e-Cigarette/Vaping Use: Never Used Second Hand Smoke Exposure: No service: No Current occupational status: retired Cognitive needs: No Hearing needs: No Vision needs: Yes Review of Systems Const Denies chills, Denies fatigue, Denies fever(s), Denies frequent falls, Denies weakness, Denies weight gain and Denies weight loss ENT Denies dizziness Card Denies chest pain, Denies leg edema, Denies lightheadedness, Denies palpitations, Denies dyspnea, Denies dyspnea on exertion, Denies orthopnea and Denies other (loss of consciousness) Resp Denies cough, Denies dyspnea and Denies dyspnea on exertion GI Denies hematochezia and Denies change in stool character Musc Denies abnormal gait, Denies muscle weakness, Denies numbness, Denies radiating pain into limb and Denies tingling Neuro Denies abnormal gait, Denies dizziness, Denies frequent falls, Denies numbness, Denies tingling and Denies weakness Endo Denies fatigue and Denies palpitations Physical Exam Vital Signs: Last Vital Signs Pulse 48 L 10/26/23 14:34 BP 114/76 10/26/23 14:34 BMI result Body Mass Index 22.1 Const General: cooperative, comfortable, no acute distress, alert, awake and well groomed Nutritional Appearance: thin Orientation/consciousness: patient oriented x3 Limitations: no limitations Neck Neck: Yes trachea midline and Yes no JVD Carotids: no bruits Resp Effort & Inspection: normal respiratory effort Auscultation: clear to auscultation bilaterally Cardio Jugular venous distension: no JVD Palpation: normal PMI Rate: regular rate Rhythm: regular rhythm Heart sounds: S1 normal heart sound present, S2 normal heart sound present, no click, no gallops, no murmurs and no rubs GI Auscultation: normal bowel sounds Skin General skin exam: no rashes or lesions noted Neuro General: patient oriented x3 and no focal motor deficits Extrem General: Yes no clubbing, cyanosis or edema Psych Appearance: grossly normal Assessment & Plan Assessment & Plan (1) Coronary artery disease: Comment: Stent placement 2003, asymptomatic, nuclear stress was negative CAD angiogram Dec 22 1016-echo February 2020 EF 60-65% Code(s): I25.10 - Atherosclerotic heart disease of [place] coronary artery without angina pectoris Qualifiers: Associated angina: without angina Coronary Disease-Associated Artery/Lesion type: [place] artery [place] vs. transplanted heart: [place] heart Qualified Code(s): I25.10 - Atherosclerotic heart disease of [place] coronary artery without angina pectoris Plan: CAD with prior drug-eluting stents at multiple different times including in 2003 to mid circumflex as well as drug-eluting stent to mid circumflex and mid LAD in 2012. His recent symptoms are very atypical and his myocardial perfusion imaging similar to in the past. Low risk with current myocardial perfusion imaging was discussed with him. He is currently on good medical therapy in his symptoms have improved. If he develops recurrent symptoms with exertion or change in symptoms he is advised to call my office and we will pursue cardiac catheterization. Otherwise continue aspirin therapy. Continue current lipid modification with target goal LDL closer to 60 mg/dL. Blood pressure is well optimized he is encouraged to continue to participate in physical activity as tolerated. Will follow up in the clinic in 6 months time, sooner p.r.n.. Thank you for allowing me to partake in his care Medications: New nitroglycerin (Nitrostat) do not exceed 3 doses per episode 0.4 mg sublingual Q5M PRN 20 tabs 0RF chest pain Coding Level of Care Code Est Pt Level 4 (12872) Diagnoses Coronary artery disease involving [place] coronary artery of [place] heart without angina pectoris I25.10 Associated angina: without angina Coronary Disease-Associated Artery/Lesion type: [place] artery [place] vs. transplanted heart: [place] heart
== END 2023-10-26 15:04 | disposition home or self-care (01) ==
PROVIDERS: PCP Internal Medicine; Visit Provider Internal Medicine Cardiovascular Disease
DX: I25.10 Atherosclerotic heart disease of native coronary artery without angina pectoris (principal)
CPT/HCPCS: 99214

== ENCOUNTER → 2023-10-26 14:32 | Outpatient (BNVA) | payer MEDICARE, BC, SELFPAY | PROVIDERS: PCP Internal Medicine; Visit Provider Internal Medicine Cardiovascular Disease | DX: I25.10 Atherosclerotic heart disease of native coronary artery without angina pectoris (principal) | CPT/HCPCS: 99212 ==

== ENCOUNTER 2023-12-17 10:05 | Outpatient (REF) | payer MEDICARE, BC, SELFPAY ==
--- NOTE | 2023-12-17 10:32 | MHC.AU.HA3 ---
Hearing Instrument Follow-Up- Binaural Date of Visit: 12/17/23 Right Ear: Zacarias, Model, Color, Serial Number: Jr Cherry 90-RT SN: [id number] Color: Sand Beige Electrical Accessories I Assembler Repair Warranty: 11/28/2025 Electrical Accessories I Assembler Loss and Damage Warranty: 11/28/[address] [facility] Service Plan: 09/14/2025 Battery Size: Rechargeable Java Engineer/Slim Tube: 2M Earmold/Dome/CShell/SlimTip:Large vented dome with retention tail Type of Wax Guard: CeruShield Dispensed By: [facility] Date of Fittin09/14/2022 Left Ear: Zacarias, Model, Color, Serial Number: Jr Cherry 90-RT SN: [id number] Color: Sand Beige Electrical Accessories I Assembler Repair Warranty: 11/28/2025 Electrical Accessories I Assembler Loss and Damage Warranty: 11/28/[address] [facility] Service Plan: 09/14/2025 Battery Size: Rechargeable Java Engineer/Slim Tube: 2M Earmold/Dome/CShell/SlimTip: Large vented dome with retention tail Type of Wax Guard: CeruShield Dispensed By: [facility] Date of Fittin09/14/2022 Follow-Up Summary: Pt. walked in with left aid not charging. Was able to check aid while he waited. Cleaned and checked aid, wax guard clogged, replaced dome tail and wax guard. Found aid to be in stock mode. Charging normally after holding button down for 30 seconds. Listening check positive. Informed pt. aid will probably not last very long today as it was only briefly charged so I could test it. Advised pt he could try this solution should he have same issue in the future. Recommendations: Recommendations: Hearing instrument follow-up or maintenance as needed. Patient will call if problems persist. Diagnosis Code(s): Primary Diagnosis: H90.3 Bilateral Sensorineural Hearing Loss Signature: Provider: Fransico Liu, [facility]
== END 2023-12-17 10:06 | disposition home or self-care (01) ==
LOC: HO.HAP 10:05
PROVIDERS: Visit Provider Internal Medicine
DX: Z13.89 Encounter for screening for other disorder (principal)

== ENCOUNTER 2023-12-29 09:24 | Outpatient (AMB) | payer MEDICARE, BC, SELFPAY ==
[2023-12-29 09:29] VITALS: BP 130/64; PULSE 59; O2SAT 99; BMI 22.9
--- NOTE | 2023-12-29 09:29 | HO.NEPHOV ---
Vital Signs 12/29/23 09:29 Height 5 ft 11 in Weight 164 lb BMI 22.9 BP 130/64 Blood Pressure Location Lt brachial Position Sitting Pulse 59 Pulse Source Pulse Oximeter Pulse Oximetry (%) 99 Oxygen Delivery Method Room Air Intake Visit Reasons: 6M follow up/ LVM Pharmacy Scheduler Required: No Accompanied by: Self / Same As Patient Allergies itraconazole [ITRACONAZOLE] Allergy (Severe, Verified 12/29/23 09:31) SHORTNESS OF BREATH, edema, edema HPI Comments Details: I had the pleasure up was seeing geeta Layne in the office in follow-up for his chronic kidney disease and hypertension. Even though he has history of coronary artery disease and had undergone stenting twice, he currently does not have any chest pain, shortness of breath, dizziness, ankle swelling, palpitation or syncope. His blood pressure had been at goal. He now has hearing aids. He does not have any urinary symptoms. He is compliant with his medications. He feels well. [facility] Medical History Skin cancer, basal cell Left leg DVT Pancytopenia Hypertension Chronic kidney disease (CKD) stage G3a/A1, moderately decreased glomerular filtration rate (GFR) between 45-59 mL/min/1.73 square meter and albuminuria creatinine ratio less than 30 mg/g Right rotator cuff tear History of renal calculi Coronary artery disease Hypercholesterolemia BPH (benign prostatic hyperplasia) GERD (gastroesophageal reflux disease) Surgical History History of coronary artery stent placement History of repair of rotator cuff H/O basal cell carcinoma excision History of prostate biopsy History of hemorrhoidectomy Family History Father Past heart attack S/P triple vessel bypass Mother Memory loss Father Prostate cancer Maternal Uncle Prostate cancer Esophagus cancer Paternal Uncle Prostate cancer Sister Lung cancer Social History Household Members: Spouse, Family and Children Housing: House Are you a primary skin care consultant to a significant other at home: No Do you presently have visiting nurse or other home services: No Alcohol intake: current Alcohol intake frequency: does not drink Alcohol type: wine Patient Tobacco Use Status: Never used Tobacco e-Cigarette/Vaping Use: Never Used Second Hand Smoke Exposure: No service: No Current occupational status: retired Cognitive needs: No Hearing needs: No Vision needs: Yes Physical Exam Vital Signs: Last Vital Signs Pulse 59 12/29/23 09:29 BP 130/64 12/29/23 09:29 Pulse Ox 99 12/29/23 09:29 Oxygen Delivery Method Room Air 12/29/23 09:29 BMI result Body Mass Index 22.9 Const General: comfortable and no acute distress Orientation/consciousness: patient oriented x3 HEENT Head: Yes normocephalic Mouth: Normal oral and palatal mucosa present Eyes EOM: EOMs intact bilaterally Neck Neck: Yes supple Resp Auscultation: clear to auscultation bilaterally Cardio Jugular venous distension: no JVD Rate: regular rate GI Palpation (GI): Soft to palpation Auscultation: normal bowel sounds General: Yes no CVA tenderness Back/Spine/Pelvis Back: no CVA tenderness Skin General skin exam: no rashes or lesions noted Neuro General: patient oriented x3 and moves all extremities Extrem General: Yes no pedal edema Results Reviewed Nephrology Results: Hgb 12.8 g/dl (14.0-18.0) L 11/09/23 WBC 4.9 X10*3/uL (4.8-10.8) 11/09/23 Plt Count 144 X10*3/uL (160-400) L 11/09/23 Sodium 142 mmol/L (135-145) 11/09/23 Potassium 4.7 mmol/L (3.3-5.1) 11/09/23 Chloride 108 mmol/L (96-108) 11/09/23 Carbon Dioxide 29 mmol/L (22-29) 11/09/23 BUN 18 mg/dL (9-16) H 11/09/23 Creatinine 1.44 mg/dL (0.5-1.4) H 11/09/23 Calcium 9.6 mg/dL (8.4-10.2) 11/09/23 Assessment & Plan Assessment & Plan (1) Hypertension: Code(s): I10 - Essential (primary) hypertension Category: Medical Qualifiers: Hypertension type: essential hypertension Qualified Code(s): I10 - Essential (primary) hypertension (2) Chronic kidney disease (CKD) stage G3a/A1, moderately decreased glomerular filtration rate (GFR) between 45-59 mL/min/1.73 square meter and albuminuria creatinine ratio less than 30 mg/g: Code(s): N18.31 - Chronic kidney disease, stage 3a Category: Medical Plan Roverto has some chronic kidney disease for long time likely from vascular disease. His renal functions had been stable at baseline but has gone up recently due to his illness. His blood pressure is at goal. He is on statins. His lipid profile is fantastic. He does not take any nonsteroidal anti-inflammatory medications. He tries to remain hydrated well . I did not make any medication changes today. I answered all his questions. Follow-up blood work ordered. Orders: Orders Creatinine Today I10 - Essential (primary) hypertension, N18.31 - Chronic kidney disease, stage 3a Electrolytes Today I10 - Essential (primary) hypertension, N18.31 - Chronic kidney disease, stage 3a Calcium Today I10 - Essential (primary) hypertension, N18.31 - Chronic kidney disease, stage 3a Blood Urea Nitrogen Today I10 - Essential (primary) hypertension, N18.31 - Chronic kidney disease, stage 3a Parathyroid Hormone Intact Today I10 - Essential (primary) hypertension, N18.31 - Chronic kidney disease, stage 3a Phosphorus Today I10 - Essential (primary) hypertension, N18.31 - Chronic kidney disease, stage 3a Coding Level of Care Code Est Pt Level 4 (58615) Diagnoses Essential hypertension I10 Hypertension type: essential hypertension Chronic kidney disease (CKD) stage G3a/A1, moderately decreased glomerular filtration rate (GFR) between 45-59 mL/min/1.73 square meter and albuminuria creatinine ratio less than 30 mg/g N18.31
== END 2023-12-29 09:56 | disposition home or self-care (01) ==
PROVIDERS: PCP Internal Medicine; Visit Provider Internal Medicine Nephrology
DX: I10 Essential (primary) hypertension (principal); N18.31 Chronic kidney disease, stage 3a
CPT/HCPCS: 99214

== ENCOUNTER 2023-12-29 10:04 | Outpatient (REF) | payer MEDICARE, BC, SELFPAY ==
[2023-12-29 11:36] LABS: Parathyroid Hormone Intact 54.4 pg/mL (8.7-77.1)
[2023-12-29 11:44] LABS: Anion Gap 13 (12-20); Blood Urea Nitrogen 20 mg/dL (9-16); Calcium 9.5 mg/dL (8.4-10.2); Carbon Dioxide 26 mmol/L (22-29); Chloride 107 mmol/L (96-108); Estimated Glomerular Filt Rate 55; Phosphorus 3.3 mg/dL (2.7-4.5); Potassium 4.1 mmol/L (3.3-5.1); Sodium 142 mmol/L (135-145)
== END 2023-12-29 10:05 | disposition home or self-care (01) ==
LOC: HO.10HDL 10:04
PROVIDERS: Visit Provider Internal Medicine Nephrology
DX: I12.9 Hypertensive chronic kidney disease with stage 1 through stage 4 chronic kidney disease, or unspecified chronic kidney disease (principal); N18.31 Chronic kidney disease, stage 3a
CPT/HCPCS: 36415; 80051; 82310; 82565; 83970; 84100; 84520; 99212

== ENCOUNTER 2023-12-31 08:51 | Outpatient (AMB) | payer MEDICARE, BC, SELFPAY ==
[2023-12-31 08:53] VITALS: BP 134/80; PULSE 52; O2SAT 98; BMI 22.9
--- NOTE | 2023-12-31 08:53 | MHC.PC.OV ---
Vital Signs 12/31/23 08:53 Height 5 ft 11 in Weight 164 lb BMI 22.9 BP 134/80 Blood Pressure Location Lt brachial Position Sitting Pulse 52 Pulse Source Pulse Oximeter Pulse Oximetry (%) 98 Oxygen Delivery Method Room Air Intake Visit Reasons: ANNUAL Intake Note: Patient is here today for a physical. Dredge Operator Required: No Allergies itraconazole [ITRACONAZOLE] Allergy (Severe, Verified 12/31/23 09:03) SHORTNESS OF BREATH, edema, edema Medication List - Last Reconciled 12/31/23 by Francisco Garcia MD aspirin 81 mg PO DAILY atenolol 25 mg PO DAILY atorvastatin (Lipitor) 40 mg PO DAILY ezetimibe (Zetia) 10 mg PO DAILY famotidine (Pepcid) 20 mg PO BEDTIME finasteride (Proscar) 5 mg PO DAILY ipratropium bromide 2 sprays intranasal BID mometasone 50 mcg/actuation (Nasonex) 2 sprays intranasal DAILY multivitamin 1 tab PO DAILY nitroglycerin (Nitrostat) 0.4 mg sublingual Q5M PRN omeprazole 40 mg PO DAILY Tobacco use date assessed: 12/31/23 Fall risk assessment: No Falls in past year Last assessed Fall Risk: 12/31/23 Dental Screening Dental Screen Date: 12/31/23 Did you have a dental visit in the last 12 months?: Yes Did you have a dental problem in the last 6 months where you did not have access to dental care?: No Was dental information given to patient?: Patient has dentist HPI ANNUAL HPI Details 78-year-old male with coronary artery disease hypertension chronic kidney disease hypercholesterolemia GERD BPH last seen in September 2023. Colonoscopy is done already. Review of the notes has seen Nephrology December 28 vascular disease stable renal function patient also has followed up with Hematology-Oncology for the anemia and leukopenia normocytic in intermittent thrombocytopenia has had a history of left lower DVT 04/19/2019. Presently on baby aspirin continuing with monitoring. Noted also ER visit in September for chest pressure diagnosis of atypical chest pain acid reflux and esophageal spasms. Patient is here for physical exam ER visit for chest pain. self med with pepcid 20 mg at night - BM is better also. October sinus infection r x? PFSH Medical History Skin cancer, basal cell Left leg DVT Pancytopenia Hypertension Chronic kidney disease (CKD) stage G3a/A1, moderately decreased glomerular filtration rate (GFR) between 45-59 mL/min/1.73 square meter and albuminuria creatinine ratio less than 30 mg/g Right rotator cuff tear History of renal calculi Coronary artery disease Hypercholesterolemia BPH (benign prostatic hyperplasia) GERD (gastroesophageal reflux disease) Surgical History History of coronary artery stent placement History of repair of rotator cuff H/O basal cell carcinoma excision History of prostate biopsy History of hemorrhoidectomy Family History Father Past heart attack S/P triple vessel bypass Mother Memory loss Father Prostate cancer Maternal Uncle Prostate cancer Esophagus cancer Paternal Uncle Prostate cancer Sister Lung cancer Social History (Updated 12/31/23 @ 09:23 by Francisco Garcia MD) Household Members: Spouse, Family and Children Housing: House Are you a primary acute care nurse to a significant other at home: No Do you presently have visiting nurse or other home services: No Alcohol intake: current Alcohol intake frequency: does not drink Alcohol type: wine Comment: 2x a year 1 glass Patient Tobacco Use Status: Never used Tobacco e-Cigarette/Vaping Use: Never Used Second Hand Smoke Exposure: No service: No Current occupational status: retired Cognitive needs: No Hearing needs: No Vision needs: Yes Questionnaire PHQ-9 Over the last 2 weeks, how often have you been bothered by any of the following problems? 1. Little interest or pleasure in doing things: not at all 2. Feeling down, depressed, or hopeless: not at all 3. Trouble falling or staying asleep, or sleeping too much: not at all 4. Feeling tired or having little energy: not at all 5. Poor appetite or overeating: not at all 6. Feeling bad about yourself - or that you are a failure or have let yourself or your family down: not at all 7. Trouble concentrating on things, such as reading the newspaper or watching television: not at all 8. Moving or speaking so slowly that other people could have noticed. Or the opposite - being so fidgety or restless that you have been moving around a lot more than usual: not at all 9. Thoughts that you would be better off or of hurting yourself in some way: not at all Total score: 0 Depression Screening Interpretation: Negative Depression Screening Done: Yes [id number] - PHQ-9 Billing: Yes Source: Developed by Drs. Star Palmer, Alyssia Muniz, Abe Mai and colleagues, with an educational sal from [employer]. Thrive Questionnaire Date Thrive assessed: 12/31/23 I am a: Patient What is your living situation today?: I have a steady place to live Within the past 12 months, did the food you bought not last and you didn't have the money to get more?: Never true Within the past 12 months, did you worry whether your food would run out before you got money to buy more?: Never true Do you have trouble paying for medicines?: No Do you have trouble getting transportation to medical appointments?: No Do you have trouble paying your heating and electricity bill?: No Do you have trouble taking care of your child, family member or friend?: No Do you have trouble with day-to-day activities such as bathing, preparing meals, shopping, managing finances, etc.?: No Are you currently unemployed and looking for a job?: No Are you interested in more education?: No Please select the resources that you would like help with: None THRIVE Score: 0 AUDIT C Alcohol Use Questionnaire (AUDIT-C) 1. How often do you have a drink containing alcohol?: Monthly or less 2. How many drinks containing alcohol do you have on a typical day when you are drinking?: 1 or 2 3. How often do you have six or more drinks on one occasion?: Never Total Score: 1 OMAR-7 AMB Questionnaire OMAR-7 Date OMAR - 7 assessed: 12/31/23 Feeling nervous, anxious, or on edge: 0 = Not at all Not being able to stop or control worryin = Not at all Worrying too much about different things: 0 = Not at all Trouble relaxin = Not at all Being so restless that it is hard to sit still: 0 = Not at all Becoming easily annoyed or irritable: 0 = Not at all Feeling afraid as if something awful might happen: 0 = Not at all Total OMAR-7 score (0-4 normal; 5-9 mild; 10-14 moderate; 15-21 severe): 0 Source: Developed by Drs. Star Palmer, Alyssia Muniz, Abe Mai and colleagues, with an educational sal from [employer]. Review of Systems Const Denies poor appetite and Denies weakness Eyes Denies no additional complaints ENT Reports Normal hearing present, Denies dizziness, Denies nasal congestion, Denies tinnitus and Denies sore throat Card Denies chest pain, Denies syncope, Denies rapid heart rate and Denies dyspnea Resp Denies cough and Denies dyspnea GI Denies change in stool character, Reports constipation, Denies diarrhea, Denies nausea and Denies vomiting Denies dysuria and Denies urinary frequency Neuro Reports Normal hearing present, Denies confusion, Denies dizziness, Denies syncope and Denies weakness Psych Denies confusion Physical exam (Primary Care) Vital Signs: Last Vital Signs Pulse 52 12/31/23 08:53 BP 134/80 12/31/23 08:53 Pulse Ox 98 12/31/23 08:53 Oxygen Delivery Method Room Air 12/31/23 08:53 BMI result Body Mass Index 22.9 Tobacco/Smoking Status: Tobacco use Status Tobacco use date assessed 12/31/23 12/31/23 08:58 Patient Tobacco Use Status Never used Tobacco 12/31/23 09:23 e-Cigarette/Vaping Use Never Used 12/31/23 09:23 PHQ-9: PHQ-9 Score PHQ-9: Total score 0 12/31/23 09:50 Depression Screening Interpretation: Negative Thrive Assessment: Date of Thrive Assessment Date Thrive assessed 12/31/23 12/31/23 08:58 Const General: No confusion Orientation/consciousness: No confusion HENMT Other: impacted cerumen bilateral Head: Yes normocephalic Ears: external ears normal Face and sinus: Yes normal facial exam Mouth: moist mucous membranes Throat: Yes tonsils normal Eyes Conjunctivae: conjunctivae normal Pupils: Equal, round and reactive pupils present and Pupil accommodation reflex normal Direct Ophthalmoscopy: normal light reflex Neck Neck: No lymphadenopathy Thyroid: Thyroid normal Chest Chest palpation & inspection: normal inspection of the chest Resp Effort & Inspection: normal respiratory effort and no audible wheezes Auscultation: clear to auscultation bilaterally, no crackles, no wheezes and lung sounds not diminished Cardio Rate: regular rate Rhythm: regular rhythm Peripheral pulses: radial pulses present and dorsalis pedis present GI Other: guaiac negative no prostate felt Palpation (GI): no masses Auscultation: normal bowel sounds and normoactive bowel sounds Male General Exam: Yes normal external exam Skin General skin exam: no rashes or lesions noted Rashes: no rashes Neuro General: No confusion Cranial nerves: Yes Equal, round and reactive pupils present and Yes Normal hearing present Cognition (Neuro): normal cognition Gait exam (Neuro): Normal gait present Motor exam (neuro): 5/5 motor strength present throughout Deep tendon reflexes (DTR's): Right brachioradialis reflex intensity grade: 2+, Left brachioradialis reflex intensity grade: 2+, Right patellar reflex intensity grade: 2+ and Left patellar reflex intensity grade: 2+ Extrem General: No edema Immunizations tetanus-diphtheria toxoids-Td 2 Lf unit-2 Lf unit/0.5 mL IM suspension Performing Provider: Francisco Garcia MD Performing Location: [facility] Administered by: SOLANGE Dasilva on 12/31/23 09:50 Dose Route Admin Location Dispensed Lot Number Expiration Date NDC Bioanalyst 0.5 mL IM Left Deltoid 0.5 mL [id number] 10/02/24 [address]-7 [employer] VIS Given Date VIS Provided VIS Publication Date 12/31/23 Single Vaccine 21 Eligibility Eligibility Date Funding Source Not [facility] Eligible 12/31/23 [facility] funds Assessment and Plan Assessment & Plan (1) Annual physical exam: Code(s): Z00.00 - Encounter for general adult medical examination without abnormal findings (2) Coronary artery disease: Comment: Stent placement 2003, asymptomatic, nuclear stress was negative CAD angiogram December 22 1017-echo February 2020 EF 60-65% Code(s): I25.10 - Atherosclerotic heart disease of [place] coronary artery without angina pectoris Qualifiers: Associated angina: without angina Coronary Disease-Associated Artery/Lesion type: [place] artery [place] vs. transplanted heart: [place] heart Qualified Code(s): I25.10 - Atherosclerotic heart disease of [place] coronary artery without angina pectoris Plan: Control the cholesterol, weight, blood pressure, diabetes continue with aspirin 81 mg once a day (3) Hypercholesterolemia: Code(s): E78.00 - Pure hypercholesterolemia, unspecified Plan: Avoid fried foods, chicken skin, eggs, butter margarine, pastries and meat. Be it pork or beef they have a lot of cholesterol LDL goal below 55 on Zetia 10 mg once a day and atorvastatin 40 mg once a day (4) Chronic kidney disease (CKD) stage G3a/A1, moderately decreased glomerular filtration rate (GFR) between 45-59 mL/min/1.73 square meter and albuminuria creatinine ratio less than 30 mg/g: Code(s): N18.31 - Chronic kidney disease, stage 3a Plan: Patient follows up with Nephrology keep well hydrated avoid NSAIDs continue with blood pressure control (5) BPH (benign prostatic hyperplasia): Code(s): N40.0 - Benign prostatic hyperplasia without lower urinary tract symptoms Qualifiers: Lower urinary tract symptom detail: urinary frequency Lower urinary tract symptom presence: symptoms present Qualified Code(s): N40.1 - Benign prostatic hyperplasia with lower urinary tract symptoms; R35.0 - Frequency of micturition Plan: Finasteride 5 mg once a day (6) GERD (gastroesophageal reflux disease): Code(s): K21.9 - Gastro-esophageal reflux disease without esophagitis Qualifiers: Esophagitis presence: without esophagitis Qualified Code(s): K21.9 - Gastro-esophageal reflux disease without esophagitis Plan: Avoid the foods that causes that usually spicy foods, tomato products, juices, coffee, soda and foods that your sensitive to. After eating do not lie down, allow 3-4 hours before in lie down. And keep the head of bed above 30 degrees to avoid the acid from going up. (7) Hypertension: Code(s): I10 - Essential (primary) hypertension Qualifiers: Hypertension type: essential hypertension Qualified Code(s): I10 - Essential (primary) hypertension Plan: Continue with blood pressure medication. Decrease salt intake and exercise presently on atenolol 25 mg once a day (8) Anemia, chronic disease: Code(s): D63.8 - Anemia in other chronic diseases classified elsewhere Plan: Patient follows up with Hematology-Oncology stable. (9) Sinus congestion: Code(s): R09.81 - Nasal congestion (10) Impacted cerumen of both ears: Code(s): H61.23 - Impacted cerumen, bilateral Orders: Orders XR sinus min 3V Today R09.81 - Nasal congestion Reticulocyte Count 6 Months N18.31 - Chronic kidney disease, stage 3a IRON PROFILE 6 Months N18.31 - Chronic kidney disease, stage 3a Complete Blood Count Auto Diff 6 Months N18.31 - Chronic kidney disease, stage 3a Comprehensive Met. Panel 6 Months N18.31 - Chronic kidney disease, stage 3a Free T4 (Free Thyroxine) 6 Months N18.31 - Chronic kidney disease, stage 3a Lipid Panel 6 Months E78.00 - Pure hypercholesterolemia, unspecified, N18.31 - Chronic kidney disease, stage 3a Thyroid Stimulating Hormone 6 Months N18.31 - Chronic kidney disease, stage 3a Vitamin B12 and Folate 6 Months N18.31 - Chronic kidney disease, stage 3a Ferritin 6 Months N18.31 - Chronic kidney disease, stage 3a Td State Immunization Today Z23 - Encounter for immunization Coding Level of Care Code Est Pt Prev Care >65y(38352) Diagnoses Annual physical exam Z00.00 Coronary artery disease involving [place] coronary artery of [place] heart without angina pectoris I25.10 Associated angina: without angina Coronary Disease-Associated Artery/Lesion type: [place] artery [place] vs. transplanted heart: [place] heart Hypercholesterolemia E78.00 Chronic kidney disease (CKD) stage G3a/A1, moderately decreased glomerular filtration rate (GFR) between 45-59 mL/min/1.73 square meter and albuminuria creatinine ratio less than 30 mg/g N18.31 Benign prostatic hyperplasia with urinary frequency N40.1; R35.0 Lower urinary tract symptom detail: urinary frequency Lower urinary tract symptom presence: symptoms present Gastroesophageal reflux disease without esophagitis K21.9 Esophagitis presence: without esophagitis Essential hypertension I10 Hypertension type: essential hypertension Anemia, chronic disease D63.8 Sinus congestion R09.81 Impacted cerumen of both ears H61.23
== END 2023-12-31 09:54 | disposition home or self-care (01) ==
PROVIDERS: PCP Internal Medicine; Visit Provider Internal Medicine
DX: Z00.00 Encounter for general adult medical examination without abnormal findings (principal); I12.9 Hypertensive chronic kidney disease with stage 1 through stage 4 chronic kidney disease, or unspecified chronic kidney disease; N18.31 Chronic kidney disease, stage 3a; Z23 Encounter for immunization; I25.10 Atherosclerotic heart disease of native coronary artery without angina pectoris; E78.00 Pure hypercholesterolemia, unspecified; N40.1 Benign prostatic hyperplasia with lower urinary tract symptoms; R35.0 Frequency of micturition; K21.9 Gastro-esophageal reflux disease without esophagitis; D63.8 Anemia in other chronic diseases classified elsewhere; R09.81 Nasal congestion; H61.23 Impacted cerumen, bilateral
CPT/HCPCS: 90471; 90714; 99397

== ENCOUNTER 2024-01-19 10:40 | Outpatient (REF) | payer MEDICARE, BC, SELFPAY ==
--- NOTE | ~2024-01-19 | XR_ITS ---
EXAMINATION: XR SINUSES CLINICAL INFORMATION: Nasal congestion. COMPARISON: None available. TECHNIQUE: 5 views of the sinuses. FINDINGS: No gross air-fluid levels in the maxillary sinuses. Hazy opacities in the ethmoid sinuses. Bilateral frontal sinuses appear patent. Dedicated CT scan of the facial bones is strongly recommended for further evaluation as CT scan is much more sensitive for detection of intracranial pathology such as that involving the facial bones/trauma. XR/XR sinus min 3V IMPRESSION: Hazy opacities in the ethmoid sinuses. Dedicated CT scan of the facial bones is strongly recommended for further evaluation as CT scan is much more sensitive for detection of intracranial pathology such as that involving the facial bones/trauma.
== END 2024-01-19 10:41 | disposition home or self-care (01) ==
LOC: HO.XRAY 10:40
PROVIDERS: PCP Internal Medicine; Visit Provider Internal Medicine
DX: R09.81 Nasal congestion (principal)
CPT/HCPCS: 70220

== ENCOUNTER 2024-03-06 09:43 | Outpatient (REF) | payer SELFPAY ==
--- NOTE | 2024-03-06 10:25 | MHC.AU.HA3 ---
Hearing Instrument Follow-Up- Binaural Date of Visit: 03/06/24 Right Ear: Zacarias, Model, Color, Serial Number: Jr Cherry 90-RT SN: [id number] Color: Sand Beige Chemists Repair Warranty: 11/28/2025 Chemists Loss and Damage Warranty: 11/28/2025 [facility] Service Plan: 09/14/2025 Battery Size: Rechargeable Workers' Compensation Hearings Officer/Slim Tube: 2M Earmold/Dome/CShell/SlimTip:Large vented dome with retention tail Type of Wax Guard: CeruShield Dispensed By: [facility] Date of Fittin09/14/2022 Left Ear: Zacarias, Model, Color, Serial Number: Jr Cherry 90-RT SN: [id number] Color: Sand Beige [employer]ists Repair Warranty: 11/28/2025 Chemists Loss and Damage Warranty: 11/28/2025 [facility] Service Plan: 09/14/2025 Battery Size: Rechargeable Workers' Compensation Hearings Officer/Slim Tube: 2M Earmold/Dome/CShell/SlimTip: Large vented dome with retention tail Type of Wax Guard: CeruShield Dispensed By: [facility] Date of Fittin09/14/2022 Follow-Up Summary: Roverto walked in with his left hearing aid not working. As it was in November, the aid is in stock mode. Resumed normal function after holding the button for 30 seconds and placing in pre coder. Updated firmware for both aids. Cleaned and checked both aids. Replaced domes and wax guards. Listening check positive. The firmware update should resolve the stock mode issue. Recommendations: Recommendations: Hearing instrument follow-up or maintenance as needed. Diagnosis Code(s): Primary Diagnosis: H90.3 Bilateral Sensorineural Hearing Loss Signature: Provider: Fransico Liu, [facility]
== END 2024-03-06 09:44 | disposition home or self-care (01) ==
LOC: HO.HAP 09:43
PROVIDERS: Visit Provider Internal Medicine
DX: Z46.1 Encounter for fitting and adjustment of hearing aid (principal); H90.3 Sensorineural hearing loss, bilateral
CPT/HCPCS: V5267

== ENCOUNTER 2024-04-07 09:43 | Outpatient (REF) | payer MEDICARE, BC, SELFPAY | END 2024-04-07 09:44 | disposition home or self-care (01) | LOC: HO.HAP 09:43 | PROVIDERS: Visit Provider Internal Medicine | DX: Z13.89 Encounter for screening for other disorder (principal) ==

== ENCOUNTER 2024-04-27 16:00 | Outpatient (RCR) | payer MEDICARE, BC, SELFPAY ==
--- NOTE | 2024-03-16 12:48 | MHC.PT.EP ---
[facility] [place] Office [place] Office [place] Office [address] [phone] F: [phone] F: [phone] F: [phone] F: [phone] Physical Therapy Plan of Care Date of Evaluation: 03/16/24 Date of Surgery: Diagnosis: neck pain Assessment: Pt is a 79yo male who was referred to PT for new onset of neck pain. PT exam reveals impaired cervical stability and pain limiting ROM, muscle guarding. Skilled PT indicated to restore full AROM, improve deep neck flexor endurance and body mechanics to reduce neck pain. Pt in agreement with POC and is motivated to participate. Frequency and Duration: The patient will be seen 2x/week x 4 weeks Short Term Goals: 1. Pt will be I with phase 1 cervical stabilization exercises and daily stretching. 2. Improve L lateral sidebending and rotation 10 degrees without increased pain. Long-Term Goals: 1. Improve deep neck flexor endurance to WNL in 4 weeks. 2. Pt will be able to complete > 1 hour yard work without increased neck pain. 3. Pt will have 0/10 neck pain during exercise class. Treatment Plan: Modalities to reduce pain, spasms and effusion. Manual therapy to restore motion and function. Therapeutic exercise to improve strength and flexibility. Neuromuscular re-education for posture and balance. Therapeutic activities to return to functional activities of daily living. Electronically signed by: Marsha Fuentes PT, DPT Please sign and return to therapist. Thank you for your referral.
--- NOTE | 2024-06-15 11:42 | MHC.PT.DC ---
[facility] [place] Office [place] Office [place] Office [address] Danny Hauser [address] [phone] F: [phone] F: [phone] F: [phone] F: [phone] Physical Therapy Discharge Report Diagnosis: neck pain Date of Surgery: Date of Evaluation: 03/16/24 Date of Discharge: 04/27/24 Treatments to Date: 10 Cancellations to Date: No Shows to Date: Discharge Status: Achieved Goals Improved Function Independent with HEP Discharge Summary: Pt is a 79yo male who was referred to PT for new onset of neck pain. PT exam reveals impaired cervical stability and pain limiting ROM, muscle guarding. Skilled PT indicated to restore full AROM, improve deep neck flexor endurance and body mechanics to reduce neck pain. Pt in agreement with POC and is motivated to participate. Pt completed 10 treatment sessions, pain improved from 5 to 0/10 overall, NDI significant improvement, I with gym routine. Pt in agreement with D/C at this time. Thank you for this referral. Electronically signed by: Marsha Fuentes PT, DPT Please sign and return to therapist. Thank you for your referral.
== END 2024-06-15 11:42 | disposition home or self-care (01) ==
LOC: HO.PT 16:00
PROVIDERS: PCP Internal Medicine; Visit Provider Internal Medicine
DX: M54.2 Cervicalgia (principal)
CPT/HCPCS: 97110; 97140; 97161; 97530

== ENCOUNTER 2024-05-02 09:36 | Outpatient (AMB) | payer MEDICARE, BC, SELFPAY ==
--- NOTE | 2024-05-02 09:40 | A.OFFVIS_ITS ---
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 Allergies itraconazole [ITRACONAZOLE] Allergy (Severe, Verified 12/31/23 09:03) SHORTNESS OF BREATH, edema, edema Medication List - Last Reconciled 05/02/24 by Rajan Khanna MD aspirin 81 mg PO DAILY atenolol 25 mg PO DAILY atorvastatin (Lipitor) 40 mg PO DAILY ezetimibe (Zetia) 10 mg PO DAILY famotidine (Pepcid) 20 mg PO BEDTIME fexofenadine (Priscilla Allergy) 180 mg PO DAILY finasteride (Proscar) 5 mg PO DAILY mometasone 50 mcg/actuation (Nasonex) 2 sprays intranasal DAILY multivitamin 1 tab PO DAILY nitroglycerin (Nitrostat) 0.4 mg sublingual Q5M PRN omeprazole 40 mg PO DAILY HPI Comments Details: Roverto comes for follow-up. In the last 6 months he has been doing very well and has had no recurrent episodes of chest discomfort. He said he has been ta samm Pepcid regularly at nighttime. Denies any exertional shortness of breath chest pain. Exercises regularly in the gym. Denies any other cardiac symptoms. No prolonged palpitation irregular heartbeat. No lightheadedness, syncope. Taking all his medications. [facility] Medical History (Updated 05/02/24 @ 10:01 by Rajan Khanna MD) Skin cancer, basal cell Left leg DVT Pancytopenia Hypertension Chronic kidney disease (CKD) stage G3a/A1, moderately decreased glomerular filtration rate (GFR) between 45-59 mL/min/1.73 square meter and albuminuria creatinine ratio less than 30 mg/g Right rotator cuff tear History of renal calculi Coronary artery disease Hypercholesterolemia BPH (benign prostatic hyperplasia) GERD (gastroesophageal reflux disease) Surgical History History of coronary artery stent placement History of repair of rotator cuff H/O basal cell carcinoma excision History of prostate biopsy History of hemorrhoidectomy Family History Father Past heart attack S/P triple vessel bypass Mother Memory loss Father Prostate cancer Maternal Uncle Prostate cancer Esophagus cancer Paternal Uncle Prostate cancer Sister Lung cancer Social History Household Members: Spouse, Family and Children Housing: House Are you a primary lead caregiver to a significant other at home: No Do you presently have visiting nurse or other home services: No Alcohol intake: current Alcohol intake frequency: does not drink Alcohol type: wine Comment: 2x a year 1 glass Patient Tobacco Use Status: Never used Tobacco e-Cigarette/Vaping Use: Never Used Second Hand Smoke Exposure: No service: No Current occupational status: retired Cognitive needs: No Hearing needs: No Vision needs: Yes Review of Systems Const Denies chills, Denies fatigue, Denies fever(s), Denies frequent falls, Denies weakness, Denies weight gain and Denies weight loss ENT Denies dizziness Card Denies chest pain, Denies leg edema, Denies lightheadedness, Denies palpitations, Denies dyspnea, Denies dyspnea on exertion, Denies orthopnea and Denies other (loss of consciousness) Resp Denies cough, Denies dyspnea and Denies dyspnea on exertion GI Denies hematochezia and Denies change in stool character Musc Denies abnormal gait, Denies muscle weakness, Denies numbness, Denies radiating pain into limb and Denies tingling Neuro Denies abnormal gait, Denies dizziness, Denies frequent falls, Denies numbness, Denies tingling and Denies weakness Endo Denies fatigue and Denies palpitations Physical Exam Vital Signs: Last Vital Signs Pulse 55 05/02/24 09:41 BP 118/74 05/02/24 09:41 BMI result Body Mass Index 22.1 Const General: cooperative, comfortable, no acute distress, alert, awake and well g roomed Nutritional Appearance: thin Orientation/consciousness: patient oriented x3 Limitations: no limitations Neck Neck: Yes trachea midline and Yes no JVD Carotids: no bruits Resp Effort & Inspection: normal respiratory effort Auscultation: clear to auscultation bilaterally Cardio Jugular venous distension: no JVD Palpation: normal PMI Rate: regular rate Rhythm: regular rhythm Heart sounds: S1 normal heart sound present, S2 normal heart sound present, no click, no gallops, no murmurs and no rubs GI Auscultation: normal bowel sounds Skin General skin exam: no rashes or lesions noted Neuro General: patient oriented x3 and no focal motor deficits Extrem General: Yes no clubbing, cyanosis or edema Psych Appearance: grossly normal Assessment & Plan Assessment & Plan (1) Coronary artery disease: Comment: Stent placement 2003, asymptomatic, nuclear stress was negative CAD angiogram December 22 1017-echo February 2020 EF 60-65% Code(s): I25.10 - Atherosclerotic heart disease of [place] coronary artery without angina pectoris Category: Medical Qualifiers: Coronary Disease-Associated Artery/Lesion type: [place] artery [place] vs. transplanted heart: [place] heart Associated angina: without angina Qualified Code(s): I25.10 - Atherosclerotic heart disease of [place] coronary artery without angina pectoris Plan: CAD with premature atherosclerosis in this elderly gentleman with mildly abnormal stress test about 6 months ago. He has no recurrent symptoms of chest pain including with good functional capacity. No further investigations or procedures need to be performed. He is advised to call me with any new symptoms with exertion. Continue aggressive medical therapy. Currently on aspirin which should be continued for lifelong. Continue dual therapy with atorvastatin ezetimibe with well optimized LDL. Continue aggressive blood pressure control which is well optimized at this point time. Advised to maintain activity level as tolerated. (2) Hypertension: Code(s): I10 - Essential (primary) hypertension Category: Medical Qualifiers: Hypertension type: essential hypertension Qualified Code(s): I10 - Essential (primary) hypertension Plan: Hypertension which is currently well optimized. Continue current therapy with atenolol. Continue low-salt diet. Continue maintain activity level as tolerated. Advised to intermittently monitor blood pressure at home maintain a log. (3) History of heart failure: Code(s): Z86.79 - Personal history of other diseases of the circulatory system Category: Medical Plan: Prior history of heart failure which has now resolved after stenting in 2013. This was a brief episode which improved and has never recurred. Currently not on any diuretic regimen. Continue management as above for coronary disease as well as hypertension. Will follow up in the clinic in 1 year's time, sooner p.r.n.. Thank you for allowing me to partake in his care Coding Level of Care Code Est Pt Level 4 (03420) Diagnoses Coronary artery disease involving [place] coronary artery of [place] heart without angina pectoris I25.10 Coronary Disease-Associated Artery/Lesion type: [place] artery [place] vs. transplanted heart: [place] heart Associated angina: without angina Essential hypertension I10 Hypertension type: essential hypertension History of heart failure Z86.79
[2024-05-02 09:41] VITALS: BP 118/74; PULSE 55; BMI 22.1
== END 2024-05-02 10:02 | disposition home or self-care (01) ==
PROVIDERS: PCP Internal Medicine; Visit Provider Internal Medicine Cardiovascular Disease
DX: I25.10 Atherosclerotic heart disease of native coronary artery without angina pectoris (principal); I10 Essential (primary) hypertension; Z86.79 Personal history of other diseases of the circulatory system
CPT/HCPCS: 99214

== ENCOUNTER → 2024-05-02 09:36 | Outpatient (BNVA) | payer MEDICARE, BC, SELFPAY | PROVIDERS: PCP Internal Medicine; Visit Provider Internal Medicine Cardiovascular Disease | DX: I25.10 Atherosclerotic heart disease of native coronary artery without angina pectoris (principal); I10 Essential (primary) hypertension; Z86.79 Personal history of other diseases of the circulatory system | CPT/HCPCS: 99212 ==

== ENCOUNTER 2024-05-29 13:03 | Outpatient (REF) | payer MEDICARE, BC, SELFPAY ==
[2024-05-29 13:40] LABS: Basophils Percent Auto 0.3 % (0-2); Eosinophils Absolute Auto 2.3 X10*3/uL (0.0-0.4); Eosinophils Percent Auto 24.9 % (0-4); Hematocrit 37.2 % (42.0-52.0); Hemoglobin 12.4 g/dl (14.0-18.0); Imm Gran Abs Auto 0.06 X10*3/uL (0.00-0.03); Imm Gran Pct Auto 0.7 % (0.0-0.4); Lymphocytes Absolute Auto 1.2 X10*3/uL (1.2-4.9); Lymphocytes Percent Auto 13.6 % (20-40); MANUAL DIFF FLAG SCAN; Mean Corpuscular HGB Conc 33.3 g/dl (31.0-36.0); Mean Corpuscular Volume 96.1 fL (80.0-98.0); Mean Platelet Volume 9.6 fL (9.4-12.4); Monocytes Absolute Auto 0.7 X10*3/uL (0.1-1.2); Monocytes Percent Auto 7.5 % (2-11); Neutrophils Absolute Auto 4.8 x10*3/uL (2.0-8.3); Platelet Count 151 X10*3/uL (160-400); Red Blood Count 3.87 X10*6/uL (4.60-5.80); Red Cell Distribution Width 14.6 % (11.0-16.0); SCAN SMEAR FLAG 1
[2024-05-29 14:04] LABS: Alanine Aminotransferase 27 U/L (0-40); Albumin Level 3.6 g/dL (3.5-5.0); Alkaline Phosphatase 97 U/L (39-117); Anion Gap 9 (12-20); Aspartate Amino Transferase 22 U/L (5-37); Bilirubin Total 0.5 mg/dL (0.0-1.0); Blood Urea Nitrogen 17 mg/dL (9-16); Calcium 9.1 mg/dL (8.4-10.2); Carbon Dioxide 29 mmol/L (22-29); Chloride 106 mmol/L (96-108); Estimated Glomerular Filt Rate 52; Glucose Random 86 mg/dL (60-115); Potassium 4.3 mmol/L (3.3-5.1); Sodium 140 mmol/L (135-145); Total Protein 6.1 g/dL (6.5-8.0)
[2024-05-29 14:10] LABS: SLIDE REVIEW VERIFIED
== END 2024-05-29 13:04 | disposition home or self-care (01) ==
LOC: HO.LAB 13:03
PROVIDERS: PCP Internal Medicine; Visit Provider Physician Assistant
DX: L30.9 Dermatitis, unspecified (principal)
CPT/HCPCS: 36415; 80053; 85025

== ENCOUNTER 2024-06-22 11:40 | Outpatient (REF) | payer MEDICARE, BC, SELFPAY ==
[2024-06-22 11:54] LABS: MANUAL DIFF FLAG NO
[2024-06-22 12:34] LABS: Basophils Absolute Auto 0.1 X10*3/uL (0.0-0.2); Basophils Percent Auto 1.5 % (0-2); Eosinophils Absolute Auto 0.1 X10*3/uL (0.0-0.4); Eosinophils Percent Auto 2.6 % (0-4); Hematocrit 36.4 % (42.0-52.0); Hemoglobin 11.9 g/dl (14.0-18.0); Imm Gran Abs Auto 0.01 X10*3/uL (0.00-0.03); Imm Gran Pct Auto 0.2 % (0.0-0.4); Lymphocytes Absolute Auto 1.1 X10*3/uL (1.2-4.9); Lymphocytes Percent Auto 23.9 % (20-40); Mean Corpuscular HGB Conc 32.7 g/dl (31.0-36.0); Mean Corpuscular Hemoglobin 31.6 pg (27.0-33.0); Mean Corpuscular Volume 96.8 fL (80.0-98.0); Mean Platelet Volume 9.7 fL (9.4-12.4); Monocytes Absolute Auto 0.5 X10*3/uL (0.1-1.2); Monocytes Percent Auto 11.3 % (2-11); Neutrophils Absolute Auto 2.8 x10*3/uL (2.0-8.3); Neutrophils Percent Auto 60.5 % (45-73); Platelet Count 167 X10*3/uL (160-400); Red Blood Count 3.76 X10*6/uL (4.60-5.80); Red Cell Distribution Width 14.6 % (11.0-16.0); Retic HGB Equivalent 35.4 pg (30.0-35.0); Reticulocyte Percent 1.4 % (0.5-1.8); Reticulocytes Absolute 0.052 X10*6/uL (0.026-0.095); White Blood Count 4.6 X10*3/uL (4.8-10.8)
[2024-06-22 13:03] LABS: Alanine Aminotransferase 42 U/L (0-40); Albumin Level 3.7 g/dL (3.5-5.0); Alkaline Phosphatase 96 U/L (39-117); Anion Gap 10 (12-20); Aspartate Amino Transferase 35 U/L (5-37); Bilirubin Total 0.8 mg/dL (0.0-1.0); Blood Urea Nitrogen 19 mg/dL (9-16); Calcium 9.6 mg/dL (8.4-10.2); Carbon Dioxide 28 mmol/L (22-29); Chloride 107 mmol/L (96-108); Cholesterol 127 mg/dL (<200); Estimated Glomerular Filt Rate 47; Glucose Random 72 mg/dL (60-115); HDL Cholesterol 73 mg/dL (>40); Iron 167 mcg/dL (45-160); LDL Cholesterol Calculated 40 mg/dL (<100); Percent Iron Saturation 58 % (15-50); Potassium 4.1 mmol/L (3.3-5.1); Sodium 141 mmol/L (135-145); Total Iron Binding Capacity 287 mcg/dL (228-428); Total Protein 6.2 g/dL (6.5-8.0); Triglycerides 74 mg/dL (<150); Unsaturated Iron Binding 120 ug/dL
[2024-06-22 13:18] LABS: Thyroid Stimulating Hormone 2.79 uIU/mL (0.32-4.0)
[2024-06-22 13:21] LABS: Ferritin 39 ng/mL (20-250); Free T4 (Free Thyroxine) 0.76 ng/dL (0.71-1.85)
[2024-06-22 13:33] LABS: Folate 15.7 ng/mL (> or = 4.0); Vitamin B12 725 pg/mL (200-900)
== END 2024-06-22 11:41 | disposition home or self-care (01) ==
LOC: HO.LAB 11:40
PROVIDERS: PCP Internal Medicine; Visit Provider Internal Medicine Nephrology
DX: N18.31 Chronic kidney disease, stage 3a (principal); E78.00 Pure hypercholesterolemia, unspecified
CPT/HCPCS: 36415; 80053; 80061; 82607; 82728; 82746; 83540; 84439; 84443; 85025; 85045

== ENCOUNTER 2024-06-28 09:40 | Outpatient (AMB) | payer MEDICARE, BC, SELFPAY ==
--- NOTE | 2024-06-28 09:48 | HO.NEPHOV ---
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 He has history of coronary artery disease and had undergone stenting twice. He currently does not have any chest pain, shortness of breath, dizziness, ankle swelling, palpitation or syncope. His blood pressure had been at goal. He now has hearing aids. He does not have any urinary symptoms. He is compliant with his medications. He feels well [facility] Medical History (Updated 05/02/24 @ 10:01 by Rajan Khanna MD) Skin cancer, basal cell Left leg DVT Pancytopenia Hypertension Chronic kidney disease (CKD) stage G3a/A1, moderately decreased glomerular filtration rate (GFR) between 45-59 mL/min/1.73 square meter and albuminuria creatinine ratio less than 30 mg/g Right rotator cuff tear History of renal calculi Coronary artery disease Hypercholesterolemia BPH (benign prostatic hyperplasia) GERD (gastroesophageal reflux disease) Surgical History History of coronary artery stent placement History of repair of rotator cuff H/O basal cell carcinoma excision History of prostate biopsy History of hemorrhoidectomy Family History Father Past heart attack S/P triple vessel bypass Mother Memory loss Father Prostate cancer Maternal Uncle Prostate cancer Esophagus cancer Paternal Uncle Prostate cancer Sister Lung cancer Social History Household Members: Spouse, Family and Children Housing: House Are you a primary health care analyst to a significant other at home: No Do you presently have visiting nurse or other home services: No Alcohol intake: current Alcohol intake frequency: does not drink Alcohol type: wine Comment: 2x a year 1 glass Patient Tobacco Use Status: Never used Tobacco e-Cigarette/Vaping Use: Never Used Second Hand Smoke Exposure: No service: No Current occupational status: retired Cognitive needs: No Hearing needs: No Vision needs: Yes Review of Systems Const All systems reviewed & are unremarkable except as noted in HPI and below Physical Exam Vital Signs: Last Vital Signs BP 122/60 06/28/24 09:49 BMI result Body Mass Index 22.6 Const Other: Hearing aid + General: comfortable and no acute distress Orientation/consciousness: patient oriented x3 HEENT Head: Yes normocephalic Mouth: Normal oral and palatal mucosa present Eyes EOM: EOMs intact bilaterally Neck Neck: Yes supple Resp Auscultation: clear to auscultation bilaterally Cardio Jugular venous distension: no JVD Rate: regular rate GI Palpation (GI): Soft to palpation Auscultation: normal bowel sounds General: Yes no CVA tenderness Back/Spine/Pelvis Back: no CVA tenderness Skin General skin exam: no rashes or lesions noted Neuro General: patient oriented x3 and moves all extremities Extrem General: Yes no pedal edema Results Reviewed Nephrology Results: Hgb 11.9 g/dl (14.0-18.0) L 06/22/24 WBC 4.6 X10*3/uL (4.8-10.8) L 06/22/24 Plt Count 167 X10*3/uL (160-400) 06/22/24 Sodium 141 mmol/L (135-145) 06/22/24 Potassium 4.1 mmol/L (3.3-5.1) 06/22/24 Chloride 107 mmol/L (96-108) 06/22/24 Carbon Dioxide 28 mmol/L (22-29) 06/22/24 BUN 19 mg/dL (9-16) H 06/22/24 Creatinine 1.46 mg/dL (0.5-1.4) H 06/22/24 Calcium 9.6 mg/dL (8.4-10.2) 06/22/24 Phosphorus 3.3 mg/dL (2.7-4.5) 12/29/23 PTH Intact 54.4 pg/mL (8.7-77.1) 12/29/23 Assessment & Plan Assessment & Plan (1) Chronic kidney disease (CKD) stage G3a/A1, moderately decreased glomerular filtration rate (GFR) between 45-59 mL/min/1.73 square meter and albuminuria creatinine ratio less than 30 mg/g: Code(s): N18.31 - Chronic kidney disease, stage 3a Category: Medical (2) Hypertension: Code(s): I10 - Essential (primary) hypertension Category: Medical Qualifiers: Hypertension type: essential hypertension Qualified Code(s): I10 - Essential (primary) hypertension Rita Layne has some chronic kidney disease for long time likely from vascular disease. His renal functions had been stable at baseline but has gone up recently due to his illness. His blood pressure is at goal. He is on statins. His lipid profile is fantastic. He does not take any nonsteroidal anti-inflammatory medications. He tries to remain hydrated well . He may be a candidate for SGLT2 i given CKD. I did not make any medication changes today. I answered all his questions. Follow-up blood work ordered Orders: Orders Calcium 6 Months I10 - Essential (primary) hypertension, N18.31 - Chronic kidney disease, stage 3a Parathyroid Hormone Intact 6 Months I10 - Essential (primary) hypertension, N18.31 - Chronic kidney disease, stage 3a Vitamin D 25-OH Total 6 Months I10 - Essential (primary) hypertension, N18.31 - Chronic kidney disease, stage 3a Creatinine 6 Months I10 - Essential (primary) hypertension, N18.31 - Chronic kidney disease, stage 3a Blood Urea Nitrogen 6 Months I10 - Essential (primary) hypertension, N18.31 - Chronic kidney disease, stage 3a Electrolytes 6 Months I10 - Essential (primary) hypertension, N18.31 - Chronic kidney disease, stage 3a Coding Level of Care Code Est Pt Level 4 (43329) Diagnoses Chronic kidney disease (CKD) stage G3a/A1, moderately decreased glomerular filtration rate (GFR) between 45-59 mL/min/1.73 square meter and albuminuria creatinine ratio less than 30 mg/g N18.31 Essential hypertension I10 Hypertension type: essential hypertension
[2024-06-28 09:49] VITALS: BP 122/60; BMI 22.6
== END 2024-06-28 10:09 | disposition home or self-care (01) ==
LOC: HO.HKA 09:40
PROVIDERS: PCP Internal Medicine; Visit Provider Internal Medicine Nephrology
DX: I12.9 Hypertensive chronic kidney disease with stage 1 through stage 4 chronic kidney disease, or unspecified chronic kidney disease (principal); N18.31 Chronic kidney disease, stage 3a
CPT/HCPCS: 99214

== ENCOUNTER → 2024-06-28 09:40 | Outpatient (BNVA) | payer MEDICARE, BC, SELFPAY | PROVIDERS: PCP Internal Medicine; Visit Provider Internal Medicine Nephrology | DX: I12.9 Hypertensive chronic kidney disease with stage 1 through stage 4 chronic kidney disease, or unspecified chronic kidney disease (principal); I25.10 Atherosclerotic heart disease of native coronary artery without angina pectoris; N18.31 Chronic kidney disease, stage 3a | CPT/HCPCS: 99212 ==

== ENCOUNTER 2024-07-03 09:29 | Outpatient (AMB) | payer MEDICARE, BC, SELFPAY ==
[2024-07-03 09:30] VITALS: BP 126/62; PULSE 50; O2SAT 100; BMI 22.5
--- NOTE | 2024-07-03 09:30 | MHC.PC.OV ---
Vital Signs 07/03/24 09:30 Height 5 ft 11 in Weight 161 lb BMI 22.5 BP 126/62 Blood Pressure Location Rt brachial Position Sitting Pulse 50 Pulse Source Pulse Oximeter Pulse Oximetry (%) 100 Oxygen Delivery Method Room Air Intake Visit Reasons: Coronary artery disease Allergies itraconazole [ITRACONAZOLE] Allergy (Severe, Verified 07/03/24 09:33) SHORTNESS OF BREATH, edema, edema Tobacco use date assessed: 07/03/24 Fall risk assessment: No Falls in past year Last assessed Fall Risk: 07/03/24 Dental Screening Dental Screen Date: 07/03/24 Did you have a dental visit in the last 12 months?: Yes Did you have a dental problem in the last 6 months where you did not have access to dental care?: No Was dental information given to patient?: Patient has dentist HPI Coronary artery disease HPI Details 79-year-old male with coronary artery disease chronic kidney disease hypercholesterolemia BPH hypertension anemia of chronic disease coming in for follow-up. Patient was last seen in December 2023 for physical exam. Patient's colonoscopy is done review of the notes has seen Nephrology June 28 stable renal function have given the option of SGLT2 inhibitor given chronic kidney disease. Patient has also seen dermatology for a rash diagnosis of question allergic reaction was given steroids Benadryl and hydroxyzine. Advised to avoid Shitake mushrooms. Cardiology notes 05/02/2024. Continue with present medication. Patient has also has seen Urology for elevated PSA negative TRUS P biopsy on Proscar continuing to monitor. 02/07/2024 had sinus x-rays showing hazy opacities ethmoid sinuses advised to get a CT scan. [facility] Medical History Skin cancer, basal cell Left leg DVT Pancytopenia Hypertension Chronic kidney disease (CKD) stage G3a/A1, moderately decreased glomerular filtration rate (GFR) between 45-59 mL/min/1.73 square meter and albuminuria creatinine ratio less than 30 mg/g Right rotator cuff tear History of renal calculi Coronary artery disease Hypercholesterolemia BPH (benign prostatic hyperplasia) GERD (gastroesophageal reflux disease) Surgical History History of coronary artery stent placement History of repair of rotator cuff H/O basal cell carcinoma excision History of prostate biopsy History of hemorrhoidectomy Family History Father Past heart attack S/P triple vessel bypass Mother Memory loss Father Prostate cancer Maternal Uncle Prostate cancer Esophagus cancer Paternal Uncle Prostate cancer Sister Lung cancer Social History Household Members: Spouse, Family and Children Housing: House Are you a primary child care attendant to a significant other at home: No Do you presently have visiting nurse or other home services: No Alcohol intake: current Alcohol intake frequency: does not drink Alcohol type: wine Comment: 2x a year 1 glass Patient Tobacco Use Status: Never used Tobacco e-Cigarette/Vaping Use: Never Used Second Hand Smoke Exposure: No service: No Current occupational status: retired Cognitive needs: No Hearing needs: No Vision needs: Yes Questionnaire PHQ-9 Over the last 2 weeks, how often have you been bothered by any of the following problems? 1. Little interest or pleasure in doing things: not at all 2. Feeling down, depressed, or hopeless: not at all 3. Trouble falling or staying asleep, or sleeping too much: not at all 4. Feeling tired or having little energy: not at all 5. Poor appetite or overeating: not at all 6. Feeling bad about yourself - or that you are a failure or have let yourself or your family down: not at all 7. Trouble concentrating on things, such as reading the newspaper or watching television: not at all 8. Moving or speaking so slowly that other people could have noticed. Or the opposite - being so fidgety or restless that you have been moving around a lot more than usual: not at all 9. Thoughts that you would be better off or of hurting yourself in some way: not at all Total score: 0 Depression Screening Interpretation: Negative Depression Screening Done: Yes 65965 - PHQ-9 Billing: Yes Source: Developed by Drs. Star Palmer, Alyssia Muniz, Abe Mai and colleagues, with an educational sal from [employer]. Thrive Questionnaire Date Thrive assessed: 07/03/24 I am a: Patient What is your living situation today?: I have a steady place to live Within the past 12 months, did the food you bought not last and you didn't have the money to get more?: Never true Within the past 12 months, did you worry whether your food would run out before you got money to buy more?: Never true Do you have trouble paying for medicines?: No Do you have trouble getting transportation to medical appointments?: No Do you have trouble paying your heating and electricity bill?: No Do you have trouble taking care of your child, family member or friend?: No Do you have trouble with day-to-day activities such as bathing, preparing meals, shopping, managing finances, etc.?: No Are you currently unemployed and looking for a job?: No Are you interested in more education?: No Please select the resources that you would like help with: None THRIVE Score: 0 AUDIT C Alcohol Use Questionnaire (AUDIT-C) 1. How often do you have a drink containing alcohol?: Monthly or less 2. How many drinks containing alcohol do you have on a typical day when you are drinking?: 1 or 2 3. How often do you have six or more drinks on one occasion?: Never Total Score: 1 OMAR-7 AMB Questionnaire OMAR-7 Date OMAR - 7 assessed: 07/03/24 Feeling nervous, anxious, or on edge: 0 = Not at all Not being able to stop or control worryin = Not at all Worrying too much about different things: 0 = Not at all Trouble relaxin = Not at all Being so restless that it is hard to sit still: 0 = Not at all Becoming easily annoyed or irritable: 0 = Not at all Feeling afraid as if something awful might happen: 0 = Not at all Total OMAR-7 score (0-4 normal; 5-9 mild; 10-14 moderate; 15-21 severe): 0 Source: Developed by Drs. Star Palmer, Alyssia Muniz, Abe Mai and colleagues, with an educational sal from [employer]. OMAR-7 Assessment Billing OMAR-7 Assessment Tool: OMAR-7 Assessment 73662 Physical exam (Primary Care) Vital Signs: Last Vital Signs Pulse 50 07/03/24 09:30 BP 126/62 07/03/24 09:30 Pulse Ox 100 07/03/24 09:30 Oxygen Delivery Method Room Air 07/03/24 09:30 BMI result Body Mass Index 22.5 Tobacco/Smoking Status: Tobacco use Status Tobacco use date assessed 07/03/24 07/03/24 09:35 Patient Tobacco Use Status Never used Tobacco 07/03/24 09:35 e-Cigarette/Vaping Use Never Used 07/03/24 09:35 PHQ-9: PHQ-9 Score PHQ-9: Total score 0 07/03/24 09:43 Depression Screening Interpretation: Negative Thrive Assessment: Date of Thrive Assessment Date Thrive assessed 07/03/24 07/03/24 09:35 Const General: alert; No acute distress HENMT Other: Bilateral impacted cerumen Eyes Conjunctivae: conjunctivae normal Resp Auscultation: clear to auscultation bilaterally Cardio Rate: regular rate Rhythm: regular rhythm GI Inspection: Yes normal to inspection Extrem General: Yes normal to inspection and No edema Office Procedures Cerumen Removal From which ear canal was the cerumen removed: bilateral Removal: otoscope w/curette and cerumen loop/spoon Notes: patient tolerated procedure well, no complications and ear canal clear 04218-Fon Wax Removal by Spoon/Curette Flu Questionnaire Does the patient have a severe egg allergy?: No Does the patient have severe life threatening allergies?: No Does the patient have a fever or illness today?: No Has the patient ever had Guillain-Attica Syndrome?: No Has the patient ever had any past reaction to a flu shot?: No Immunizations Fluarix Triv 5218-8080 (PF) 45 mcg (15 mcg x 3)/0.5 mL IM syringe Performing Provider: Francisco Garcia MD [facility] Administered by: Neelam Simon CMA on 07/03/24 10:09 Dose Route Admin Location Dispensed Lot Number Expiration Date [facility] Acquisition Marketing Coordinator 0.5 mL IM Left Tricep 0.5 mL [id number] 02/19/25 [id number] Dot VN VIS Given Date VIS Provided VIS Publication Date 07/03/24 Single Vaccine 21 Eligibility Eligibility Date Funding Source Not [facility] Eligible 07/03/24 Private Coding Level of Care Code Est Pt Level 4 (92771) Complex EM visit Add On G2211 Diagnoses Coronary artery disease involving solomon coronary artery of solomon heart without angina pectoris I25.10 Coronary Disease-Associated Artery/Lesion type: solomon artery Sun'Aq vs. transplanted heart: solomon heart Associated angina: without angina Chronic kidney disease (CKD) stage G3a/A1, moderately decreased glomerular filtration rate (GFR) between 45-59 mL/min/1.73 square meter and albuminuria creatinine ratio less than 30 mg/g N18.31 Hypercholesterolemia E78.00 Benign prostatic hyperplasia with urinary frequency N40.1; R35.0 Lower urinary tract symptom presence: symptoms present Lower urinary tract symptom detail: urinary frequency Gastroesophageal reflux disease without esophagitis K21.9 Esophagitis presence: without esophagitis Essential hypertension I10 Hypertension type: essential hypertension LFT elevation R79.89 Impacted cerumen of both ears H61.23 CPT Codes Office Procedure - CPT: 47173-Rey Wax Removal by Spoon/Curette ([id number]) Additional Codes OMAR-7 Assessment Billing - OMAR-7 Assessment Tool: OMAR-7 Assessment 68505 ([id number]) PHQ-9 - 03456 - PHQ-9 Billing: Yes ([id number]) Assessment & Plan Assessment & Plan (1) Coronary artery disease: Comment: Stent placement 2003, asymptomatic, nuclear stress was negative CAD angiogram Dec 22 1016-echo February 2020 EF 60-65% Code(s): I25.10 - Atherosclerotic heart disease of solomon coronary artery without angina pectoris Category: Medical Qualifiers: Coronary Disease-Associated Artery/Lesion type: solomon artery Sun'[place]q vs. transplanted heart: solomon heart Associated angina: without angina Qualified Code(s): I25.10 - Atherosclerotic heart disease of solomon coronary artery without angina pectoris Plan: Control the cholesterol, weight, blood pressure, patient sees Cardiology continue with present medication continue with aspirin 81 mg once a day (2) Chronic kidney disease (CKD) stage G3a/A1, moderately decreased glomerular filtration rate (GFR) between 45-59 mL/min/1.73 square meter and albuminuria creatinine ratio less than 30 mg/g: Code(s): N18.31 - Chronic kidney disease, stage 3a Category: Medical Plan: Continue to follow-up with Nephrology, continue with blood pressure control continue with cholesterol control patient was given the option of starting on SGLT2 inhibitor (3) Hypercholesterolemia: Code(s): E78.00 - Pure hypercholesterolemia, unspecified Category: Medical Plan: Avoid fried foods, chicken skin, eggs, butter margarine, pastries and meat. Be it pork or beef they have a lot of cholesterol LDL goal of less than 60 patient is on atorvastatin and Zetia (4) BPH (benign prostatic hyperplasia): Code(s): N40.0 - Benign prostatic hyperplasia without lower urinary tract symptoms Category: Medical Qualifiers: Lower urinary tract symptom presence: symptoms present Lower urinary tract symptom detail: urinary frequency Qualified Code(s): N40.1 - Benign prostatic hyperplasia with lower urinary tract symptoms; R35.0 - Frequency of micturition Plan: Continuing with Proscar patient follows up with urology (5) GERD (gastroesophageal reflux disease): Code(s): K21.9 - Gastro-esophageal reflux disease without esophagitis Category: Medical Qualifiers: Esophagitis presence: without esophagitis Qualified Code(s): K21.9 - Gastro-esophageal reflux disease without esophagitis Plan: Reflux (6) Hypertension: Code(s): I10 - Essential (primary) hypertension Category: Medical Qualifiers: Hypertension type: essential hypertension Qualified Code(s): I10 - Essential (primary) hypertension Plan: Continue with blood pressure medication. Decrease salt intake and exercise patient is on atenolol 25 mg once a day (7) LFT elevation: Code(s): R79.89 - Other specified abnormal findings of blood chemistry Category: Medical Plan: Discussed about the elevated liver function test and advised repeat testing. (8) Impacted cerumen of both ears: Code(s): H61.23 - Impacted cerumen, bilateral Category: Medical Plan: scoop used , no irrigation TM intact Orders: Orders Hepatitis B,C Profile Today R79.89 - Other specified abnormal findings of blood chemistry US abdomen complete Today R79.89 - Other specified abnormal findings of blood chemistry Influenza 3215-1569 Immunization Today Z23 - Encounter for immunization Comprehensive Met. Panel Today R79.89 - Other specified abnormal findings of blood chemistry Medications: New Fluarix Triv 7766-0711 (PF) (flu vacc ou3424-78 6mos up(PF)) 0.5 mL IM ONCE 0.5 mL 0RF NS Z23 - Encounter for immunization
== END 2024-07-03 10:13 | disposition home or self-care (01) ==
PROVIDERS: PCP Internal Medicine; Visit Provider Internal Medicine
DX: I12.9 Hypertensive chronic kidney disease with stage 1 through stage 4 chronic kidney disease, or unspecified chronic kidney disease (principal); N18.31 Chronic kidney disease, stage 3a; I25.10 Atherosclerotic heart disease of native coronary artery without angina pectoris; H61.23 Impacted cerumen, bilateral; E78.00 Pure hypercholesterolemia, unspecified; N40.1 Benign prostatic hyperplasia with lower urinary tract symptoms; R35.0 Frequency of micturition; K21.9 Gastro-esophageal reflux disease without esophagitis

== ENCOUNTER → 2024-07-03 09:29 | Outpatient (BNVA) | payer MEDICARE, BC, SELFPAY | PROVIDERS: PCP Internal Medicine; Visit Provider Internal Medicine | DX: Z23 Encounter for immunization (principal); I25.10 Atherosclerotic heart disease of native coronary artery without angina pectoris; N18.31 Chronic kidney disease, stage 3a; E78.00 Pure hypercholesterolemia, unspecified; N40.1 Benign prostatic hyperplasia with lower urinary tract symptoms; R35.0 Frequency of micturition; K21.9 Gastro-esophageal reflux disease without esophagitis; I12.9 Hypertensive chronic kidney disease with stage 1 through stage 4 chronic kidney disease, or unspecified chronic kidney disease; R79.89 Other specified abnormal findings of blood chemistry; H61.23 Impacted cerumen, bilateral | CPT/HCPCS: 69210; 90471; 90656; 96127; 99212 ==

== ENCOUNTER 2024-07-04 12:23 | Outpatient (REF) | payer SELFPAY | END 2024-07-04 12:24 | disposition home or self-care (01) | LOC: HO.HAP 12:23 | PROVIDERS: Visit Provider Internal Medicine | DX: Z13.89 Encounter for screening for other disorder (principal) ==

== ENCOUNTER 2024-07-14 09:08 | Outpatient (REF) | payer MEDICARE, BC, SELFPAY ==
--- NOTE | ~2024-07-14 | US_ITS ---
EXAMINATION: US ABDOMEN COMPLETE CLINICAL INFORMATION: Other specified abnormal findings of blood chemistry. COMPARISON: CT abdomen and pelvis 11/10/2021. X-ray KUB 05/30/2016. TECHNIQUE: Real-time imaging of the abdominal viscera. FINDINGS: PANCREAS: Normal. ABDOMINAL AORTA: The proximal, mid, and distal segments are normal in caliber. INFERIOR VENA CAVA: Visualized portions are normal. LIVER: Normal. The liver is normal in size. The liver contour is normal. Parenchymal echogenicity is normal. No focal hepatic lesion. There is no intrahepatic biliary duct dilatation seen. GALLBLADDER: Normal. The gallbladder is physiologically distended without evidence of stones, sludge, polyps, wall thickening or pericholecystic fluid. COMMON BILE DUCT: Normal in caliber measuring 0.4 cm in diameter. RIGHT KIDNEY: Normal. No hydronephrosis. No renal calculi or focal parenchymal lesions. The kidney measures 9.8 cm in maximum dimension. LEFT KIDNEY: Normal. No hydronephrosis. No renal calculi or focal parenchymal lesions. The kidney measures 10.4 cm in maximum dimension. SPLEEN: Normal. The spleen measures 11.0 cm in maximum dimension. FREE FLUID: None. US/US abdomen complete IMPRESSION: Unremarkable study. Electronically signed by: Hang Huff MD 07/19/2024 04:43 PM EST
[2024-07-14 11:21] LABS: Alanine Aminotransferase 33 U/L (0-40); Albumin Level 3.9 g/dL (3.5-5.0); Alkaline Phosphatase 108 U/L (39-117); Anion Gap 12 (12-20); Aspartate Amino Transferase 40 U/L (5-37); Bilirubin Total 0.8 mg/dL (0.0-1.0); Blood Urea Nitrogen 18 mg/dL (9-16); Calcium 9.7 mg/dL (8.4-10.2); Carbon Dioxide 28 mmol/L (22-29); Chloride 105 mmol/L (96-108); Estimated Glomerular Filt Rate 48; Glucose Random 99 mg/dL (60-115); Potassium 4.8 mmol/L (3.3-5.1); Sodium 140 mmol/L (135-145); Total Protein 6.3 g/dL (6.5-8.0)
[2024-07-14 11:31] LABS: HBc Num1 0.08 S/CO (0.00-0.79); HBsAGNum1 0.37 S/CO (0.00-0.99); Hepatitis B Core Antibody Nonreactive (Nonreactive); Hepatitis B Surface Antigen Negative (Negative); ~HepC Num1 0.09 S/CO (0.00-0.79); ~Hepatitis B Surface Antibody NONREACTIVE (Nonreactive); ~Hepatitis C Antibody Nonreactive (Nonreactive)
== END 2024-07-14 09:09 | disposition home or self-care (01) ==
LOC: HO.US 09:08
PROVIDERS: PCP Internal Medicine; Referring Provider Internal Medicine Nephrology; Visit Provider Internal Medicine
DX: R79.89 Other specified abnormal findings of blood chemistry (principal)
CPT/HCPCS: 36415; 76700; 80053; 86704; 86706; 86803; 87340

== ENCOUNTER 2024-10-30 09:41 | Outpatient (REF) | payer MEDICARE, BC, SELFPAY ==
--- OUTSIDE RECORDS SUMMARY | 2024-10-30 10:36 | XMS_ITS ---
Author Organization [facility] Address [address] [place] [address] Care Team Providers Care Buckshot Swage Operator Name Role Phone Francisco Garcia Primary Care Provider Dutch Byrd [phone] REASON FOR VISIT Rash Encounters Encounter Location Date Provider Diagnosis [facility] [address] [place] [address] 06/19/2024 Dutch Geiger Plan Of Treatment No Information Progress Notes * Roverto LENTZDOB:1945 (79 yo M)Acc No.[id number]:06/19/2024 Patient:?Roverto Lentz :1945???Age:79 Y???Sex:Male Address:[address] [place] [address] * true * Date:? Generated for Printi ng/Fasyedg/eTransmitting on:?10/30/2024 10:36 AM EDT
--- OUTSIDE RECORDS SUMMARY | 2024-10-30 10:36 | XMS_ITS | Patient Health Record ---
Author Organization [facility] Address [address] [place] [address] Care Team Providers Care Rotary Furnace Operator Name Role Phone Po Francisco STALLWORTH Primary Care Provider UnavailStar Rodriguez Unavailable [phone] Montrell Cerda Unavailable Unavailable Allergies Allergen (clinical drug ingredient) Drug/Non Drug Allergy documented on EMR Reaction Allergy Type Onset Date Status itraconazole Itraconazole Unknown Drug Allergy A ctive Reason For Referral No Information Medications Medication SIG (Take, Route, Frequency, Duration) Notes Start Date End Date Status Probiotic Active Multivitamin Active Fish Oil Active Finasteride 5 MG Oral for 90 A ctive Atorvastatin Calcium 40 MG Oral for 90 Active Omeprazole 40 MG Take one Oral Once a day Active Aspirin Adult Low Dose 81 MG 1 tablet Orally Once a day Active Zetia 10 MG 1 tablet Orally Once a day for 30 day(s) Active Atenolol 25 MG 1 tablet Orally Once a day Active Immunizations Vaccine Route Administration Date Status Comme nts Influenza Unknown 04/23/2016 Administered Problems Problem Type SNOMED Code ICD Code Onset Dates Problem Status W/U Status Risk Notes Problem 128089248 Colon cancer screening (Z12.11) Active confirmed Problem 18872675 Change in bowel habits (R19.4) Active confirmed Problem 783181877 Gastroesophageal reflux disease without esophagitis (K21.9) Active confirmed Problem 97466678 Esophageal spasm (K22.4) Active confirmed Problem Diverticulosis of colon (008315583) Diverticulosis of colon (K57.30) Active confirmed Plan Of Treatment Pending Test Test Name Order Date CELIAC PANEL #10 11/24/2022 Future Test Test Name Order Date COLONOSCOPY 07/20/2012 COLONOSCOPY 11/24/2022 Insurance Providers Payer Name Payer Address Payer Phone Subscriber Number Group Number Insured Name Patient Relationship to Insured Coverage Start Date Coverage End Date MEDICARE OF [place] [address] [place] [address] [phone] [id number] KIEL LENTZ Self - patient is the insured [facility] [address] [place], [place] [id number] [phone] [id number] KIEL LENTZ Self - patient is the insured Medical (General) History Medical History History ICD Code Esophageal reflux-EGD in 08/2004-negative Diverticulosis Anemia-followed by Dr. Cerda Mild leukopenia-followed by Dr. Cerda CAD-stent placed in 2003-no [place]; 2 stents in 2012; 12/2016 had negative cardiac cath with Dr. Khanna BPH Denies [place],DM,CVA,Lung disease,renal dise ase Neg. colonoscopy in 06/2002 Microscopic hematuria Colonoscopy in 08/2012--1 tiny hyperplast ic polyp removed Surgical History Surgery Date(Month/Year) Hemorrhoid surgery rotator cuff surgery right sep 2016 cardiac stents x3
--- OUTSIDE RECORDS SUMMARY | 2024-10-30 10:36 | XMS_ITS | Patient Health Record ---
Author Organization [facility] Address [address] [facility] [place] [address] Care Team Providers Care Electrical Systems Designer Name Role Phone Francisco Garcia Primary Care Provider Dutch Byrd Unavailable [phone] Allergies Allergen (clinical drug ingredient) Drug/Non Drug Allergy documented on EMR Reaction Allergy Type Onset Date Status itraconazole Itraconazole heart failure Drug Allergy Active Reason For Referral No Information Medications Medication SIG (Take, Route, Frequency, Duration) Notes Start Date End Date Status Ezetimibe 10 MG TAKE 1 TABLET BY ALKA TH EVERY DAY Oral for 90 Active Aspirin 81 MG 1 tablet Orally Once a day for 30 day(s) Active Ciclopirox Olamine 0.77 % 1 application to affected area Externally Twice a day to effected areas on feet for 30 days Active Omeprazole 40 MG Oral for 90 A ctive Atorvastatin Calcium 40 MG Oral for 90 Active Atenolol 25 MG Oral for 90 Act sidney Finasteride 5 MG Oral for 90 A ctive Social History Tobacco Use: Social History Observation Description Date Details (start date - stop date) Never Smoker NA - NA Tobacco Use/Smoking Question Answer Notes Are you a: nonsmoker Additional Findings: Tobacco Non-User Current no n-smoker Alcohol Screen Question Answer Notes Did you have a drink contain ing alcohol in the past year? Yes How often did you have a dri nk containing alcohol in the past year? Monthly or less (1 point) Points 1 Interpretation Negative Tobacco use other than smoking: Question Answer Notes Are you an other tobacco user? No Encounters Encounter Location Date Provider Diagnosis [facility] [address] [place] [address] 06/19/2024 Dutch Geiger Plan Of Treatment Pending Test Test Name Order Date X ray : Foot, left 3V 12/03/2022 Insurance Providers Payer Name Payer Address Payer Phone Subscriber Number Group Number Insured Name Patient Relationship to Insured Coverage Start Date Coverage End Date Medicare [employer] [address] [place] [address] [id number] Roverto Pan Self - patient is the insured [facility] [address] [place] [address] [phone] [id number] Roverto Pan Self - patient is the insured Medical (General) History Medical History History ICD Code Cataracts covid-19 Heart disease Reflux ( GERD) chronic sinusitis Chicken pox Measles Vascular grafts Surgical History Surgery Date(Month/Year) rotator cuff 2018
--- OUTSIDE RECORDS SUMMARY | 2024-10-30 10:36 | XMS_ITS | Clinical Summary ---
Author Organization [facility] Address [address] [place] [address] Care Team Providers Care Application Technical Designer Name Role Phone Unavailable Primary Care Provider Unavailabl e Social History Tobacco Use Types Packs/Day Years Used Date Smoking Tobacco: Never Assessed Sex and Gender Information Value Date Recorded Sex Assigned at Not on file Legal Sex Male 1:01 AM EST Gender Identity Not on file Sexual Orientation Not on file Plan of Treatment Health Maintenance Due Date Last Done Comments DTaP,Tdap,and Td Vaccines (1 - Tdap) 1964 Pneumococcal Vaccine: 50+ Years (1 of 1 - PCV) 1995 Zoster Vaccines (1 of 2) 1995 RSV Immunization Patients 60+ Years Old (1 - 1-dose 75+ series) 2020 Cholesterol Screening (Lipid Panel) 07/26/2022 Depression Screening 07/26/2022 Falls Risk Assessment 07/26/2022 Hepatitis C Screening 07/26/2022 Social Influencers of Health Screening 07/26/2022 COVID-19 Vaccine ( season) 2024 10/14/2020, 09/23/2020 Influenza Vaccine (#1) 2024 , 07/18/2019, 07/12/2018, Additional history exists HIB Vaccines Aged Out No longer eligi ble based on patient's age to complete this topic HPV Vaccines Aged Out No longer eligi ble based on patient's age to complete this topic Hepatitis A Vaccines Aged Out No long er eligible based on patient's age to complete this topic Hepatitis B Vaccines Aged Out No long er eligible based on patient's age to complete this topic IPV Vaccines Aged Out No longer eligi ble based on patient's age to complete this topic MMR Vaccines Aged Out No longer eligi ble based on patient's age to complete this topic Meningococcal ACWY Vaccine Aged Out N o longer eligible based on patient's age to complete this topic Meningococcal B Vacine Aged Out No lo nger eligible based on patient's age to complete this topic RSV Immunization Patients Under 20 months Aged Out No longer eligible based on patient's age to complete this topic Varicella Vaccines Aged Out No longer eligible based on patient's age to complete this topic
--- OUTSIDE RECORDS SUMMARY | 2024-10-30 10:36 | XMS_ITS | Clinical Summary ---
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 Role Phone Francisco Garcia MD Primary Care Provider [phone] Allergies Active Allergy Reactions Criticality Noted Date Comments Itraconazole Anaphylaxis High 12/09/2017 Medications omeprazole (PriLOSEC) [address] capsule Take 1 capsule by mouth 1 (one) time each day 08/31/2016 Active finasteride (PROSCAR) 5 MG tablet Take 1 tablet by mouth 1 (one) time each day 12/23/2015 Active atorvastatin (LIPITOR) 40 MG tablet Take 1 tablet by mouth 1 (one) time each day 11/30/2015 Active atenolol (TENORMIN) 25 MG tablet Take 1 tablet by mouth 1 (one) time each day 01/01/2016 Active aspirin (ST KENDRA) 81 MG EC tablet Take 81 mg by mouth 1 (one) time each day Active ezetimibe (ZETIA) 10 MG tablet Take 10 mg by mouth 1 (one) time each day 05/08/2022 Active Active Problems Problem Noted Date Diagnosed Date Hypertension 06/09/2021 Hypertensive renal disease 06/04/2021 Chronic kidney disease stage 3 06/04/2021 Prostate specific antigen above reference range 12/08/2017 Microscopic hematuria 12/08/2017 Benign prostatic hyperplasia 12/08/2017 Family History Medical History Relation Comments Autosomal Dominant Polycystic Kidney Disease Fat her Polycystic Kidney disease Cancer Father Prostate Heart disease Father Kidney disease Father Heart disease Mother Relation Status Comments Father Mother Social History Tobacco Use Types Packs/Day Years Used Date Smoking Tobacco: Never Smokeless Tobacco: Never Tobacco Cessation:Counseling Given: Not Answered Alcohol Use Standard Drinks/Week Comments Yes 0 (1 standard drink = 0.6 oz pure alcohol) Alcoholic Drinks/day: Occasional social drink Sex and Gender Information Value Date Recorded Sex Assigned at Not on file Legal Sex Male 5:14 PM EST Gender Identity Not on file Sexual Orientation Not on file Last Filed Vital Signs Vital Sign Reading Time Taken Comments Blood Pressure 130/70 06/23/2022 11:00 AM EDT Pulse 58 06/23/2022 11:00 AM EDT Temperature - - Respiratory Rate - - Oxygen Saturation 99% 06/09/2021 10:21 AM EDT Inhaled Oxygen Concentration - - Weight 74.7 kg (164 lb 9.6 oz) 06/23/2022 11:00 AM EDT Height 180.3 cm (5' 11 ) 04/16/2020 12:00 PM EDT Body Mass Index 22.96 04/16/2020 12:00 PM EDT Plan of Treatment Health Maintenance Due Date Last Done Comments Pneumococcal Vaccine: 65+ Ye ars (1 of 2 - PCV) 1951 Influenza Vaccine (#1) 2024 Hepatitis B Vaccine Aged Out No longe r eligible based on patient's age to complete this topic Insurance [facility] MEDICARE [facility] MEDICARE Care Teams Hypercil Core Transformer Assembler Relationship Specialty Start Date End Date Francisco Garcia MD [facility] [address] [place], [place] PCP - General 09/02/20
--- OUTSIDE RECORDS SUMMARY | 2024-10-30 10:37 | XMS_ITS | Clinical Summary ---
Author Organization [facility] Address [address] [place] [address] Care Team Providers Care Sba Underwriter Name Role Phone Francisco Garcia MD Primary Care Provider [phone] Allergies Active Allergy Reactions Criticality Noted Date Comments Itraconazole Anaphylaxis High 12/09/2017 Medications Medication Sig Dispensed Refills Start Date End Date Status atenolol (TENORMIN) tablet 25 mg TAKE 1 TABLET BY MOUTH EVERY DAY 3 09/20/2017 Active atorvastatin (LIPITOR) tablet 40 mg TAKE 1 TABLET BY MOUTH EVERY DAY 3 11/19/2017 Active omeprazole (PRILOSEC) 40 MG capsule TAKE ONE CAPSULE BY MOUTH EVERY DAY 1 10/26/2017 Active aspirin 81 MG tablet Take 81 mg by mouth daily. 0 Active finasteride (PROSCAR) 5 MG tablet TAKE 1 TABLET BY MOUTH EVERY DAY 90 tablet 3 12/21/2017 Active Active Problems Problem Noted Date Diagnosed Date Elevated PSA 12/08/2017 Hematuria, microscopic 12/08/2017 BPH without obstruction/lower urinary tract symp toms 12/08/2017 Family History Medical History Relation Name Comments Heart disease Father Polycystic kidney disease Father Prostate cancer Father Heart disease Mother Relation Name Status Comments Father Mother Social History Tobacco Use Types Packs/Day Years Used Date Smoking Tobacco: Never Smokeless Tobacco: Never Alcohol Use Standard Drinks/Week Comments Yes 0 (1 standard drink = 0.6 oz pur e alcohol) Sex and Gender Information Value Date Recorded Sex Assigned at Not on file Gender Identity Not on file Sexual Orientation Not on file Last Filed Vital Signs Vital Sign Reading Time Taken Comments Blood Pressure 138/76 12/09/2017 8:32 AM EDT Pulse - - Temperature - - Respiratory Rate - - Oxygen Saturation - - Inhaled Oxygen Concentration - - Weight 74.8 kg (165 lb) 12/09/2017 8:32 AM EDT Height 180.3 cm (5' 11 ) 12/09/2017 8:32 AM EDT Body Mass Index 23.01 12/09/2017 8:32 AM EDT Plan of Treatment Health Maintenance Due Date Last Done Comments Hepatitis C Screening 1945 COVID-19 Vaccine (#1) 1945 Depression Screening 1957 Preventative Health Evaluation 1963 DTap / Tdap / Td (1 - Tdap) 1964 Shingrix-Zoster Vaccine (1 of 2) 1995 Fall Risk Assessment 2010 Pneumococcal Vaccine (1 of 1 - PCV) 2010 RSV Adult > 60+ Yrs or Pregn ant (1 - 1-dose 75+ series) 2020 Influenza Vaccine (#1) 2024 Hepatitis B Vaccines Aged Out No long er eligible based on patient's age to complete this topic RSV Ped < 20 months Aged Out No longe r eligible based on patient's age to complete this topic Care Teams Sba Underwriter Relationship Specialty Start Date End Date Po, Francisco Tucker MD [address] [facility] [place] [address] PCP - General Internal Medicine 12/07/17
== END 2024-10-30 09:42 | disposition home or self-care (01) ==
LOC: HO.SH 09:41
PROVIDERS: Visit Provider Internal Medicine
DX: Z01.118 Encounter for examination of ears and hearing with other abnormal findings (principal); H90.3 Sensorineural hearing loss, bilateral
CPT/HCPCS: 92552; 92556

== ENCOUNTER 2025-01-05 08:58 | Outpatient (AMB) | payer MEDICARE, BC, SELFPAY ==
[2025-01-05 09:01] VITALS: BP 136/62; PULSE 53; O2SAT 98; BMI 22.2
--- NOTE | 2025-01-05 09:01 | A.OFFPC_ITS ---
Vital Signs 01/05/25 09:01 Height 5 ft 11 in Weight 159 lb BMI 22.2 BP 136/62 Blood Pressure Location Lt brachial Position Sitting Pulse 53 Pulse Source Pulse Oximeter Pulse Oximetry (%) 98 Oxygen Delivery Method Room Air Intake Visit Reasons: Annual Exam Allergies itraconazole [ITRACONAZOLE] Allergy (Severe, Verified 01/05/25 09:01) SHORTNESS OF BREATH, edema, edema Medication List - Last Reconciled 01/05/25 by Francisco Garcia MD aspirin 81 mg PO DAILY atenolol 25 mg PO DAILY atorvastatin (Lipitor) 40 mg PO DAILY ezetimibe (Zetia) 10 mg PO DAILY famotidine (Pepcid) 20 mg PO BEDTIME fexofenadine (Priscilla Allergy) 180 mg PO DAILY finasteride (Proscar) 5 mg PO DAILY mometasone 50 mcg/actuation (Nasonex) 2 sprays intranasal DAILY multivitamin 1 tab PO DAILY nitroglycerin 0.4 mg sublingual Q5M omeprazole 40 mg PO DAILY Tobacco use date assessed: 01/05/25 Fall risk assessment: No Falls in past year Last assessed Fall Risk: 01/05/25 Dental Screening Dental Screen Date: 01/05/25 Did you have a dental visit in the last 12 months?: Yes Did you have a dental problem in the last 6 months where you did not have access to dental care?: No Was dental information given to patient?: Patient has dentist HPI Annual Exam HPI Details 07/2024 warm abdomen, weak , hand tingli ng- diarrhea, states sinus attack then 12/05 then 12/11- PFSH Medical History Skin cancer, basal cell Left leg DVT Pancytopenia Hypertension Chronic kidney disease (CKD) stage G3a/A1, moderately decreased glomerular filtration rate (GFR) between 45-59 mL/min/1.73 square meter and albuminuria creatinine ratio less than 30 mg/g Right rotator cuff tear History of renal calculi Coronary artery disease Hypercholesterolemia BPH (benign prostatic hyperplasia) GERD (gastroesophageal reflux disease) Surgical History History of coronary artery stent placement History of repair of rotator cuff H/O basal cell carcinoma excision History of prostate biopsy History of hemorrhoidectomy Family History Father Past heart attack S/P triple vessel bypass Mother Memory loss Father Prostate cancer Maternal Uncle Prostate cancer Esophagus cancer Paternal Uncle Prostate cancer Sister Lung cancer Social History Household Members: Spouse, Family and Children Housing: House Are you a primary lpn care manager to a significant other at home: No Do you presently have visiting nurse or other home services: No Alcohol intake: current Alcohol intake frequency: does not drink Alcohol type: wine Comment: 2x a year 1 glass Patient Tobacco Use Status: Never used Tobacco Tobacco use type: Cigarette e-Cigarette/Vaping Use: Never Used Second Hand Smoke Exposure: No service: No Current occupational status: retired Cognitive needs: No Hearing needs: No Vision needs: Yes Questionnaire PHQ-9 Over the last 2 weeks, how often have you been bothered by any of the following problems? 1. Little interest or pleasure in doing things: not at all 2. Feeling down, depressed, or hopeless: not at all 3. Trouble falling or staying asleep, or sleeping too much: not at all 4. Feeling tired or having little energy: not at all 5. Poor appetite or overeating: not at all 6. Feeling bad about yourself - or that you are a failure or have let yourself or your family down: not at all 7. Trouble concentrating on things, such as reading the newspaper or watching television: not at all 8. Moving or speaking so slowly that other people could have noticed. Or the opposite - being so fidgety or restless that you have been moving around a lot more than usual: not at all 9. Thoughts that you would be better off or of hurting yourself in some way: not at all Total score: 0 Depression Screening Interpretation: Negative Depression Screening Done: Yes 52546 - PHQ-9 Billing: Yes Source: Developed by Drs. Star Palmer, Alyssia Muniz, Abe Mai and colleagues, with an educational sal from [employer]. Thrive Questionnaire Date Thrive assessed: 01/05/25 I am a: Patient What is your living situation today?: I have a steady place to live Within the past 12 months, did the food you bought not last and you didn't have the money to get more?: Never true Within the past 12 months, did you worry whether your food would run out before you got money to buy more?: Never true Do you have trouble paying for medicines?: No Do you have trouble getting transportation to medical appointments?: No Do you have trouble paying your heating and electricity bill?: No Do you have trouble taking care of your child, family member or friend?: No Do you have trouble with day-to-day activities such as bathing, preparing meals, shopping, managing finances, etc.?: No Are you currently unemployed and looking for a job?: No Are you interested in more education?: No Please select the resources that you would like help with: None Currently or been in a relationship where the following occur: No concerns reported THRIVE Score: 0 AUDIT C Alcohol Use Questionnaire (AUDIT-C) 1. How often do you have a drink containing alcohol?: Monthly or less 2. How many drinks containing alcohol do you have on a typical day when you are drinking?: 1 or 2 3. How often do you have six or more drinks on one occasion?: Never Total Score: 1 OMAR-7 AMB Questionnaire OMAR-7 Date OMAR - 7 assessed: 01/05/25 Feeling nervous, anxious, or on edge: 0 = Not at all Not being able to stop or control worryin = Not at all Worrying too much about different things: 0 = Not at all Trouble relaxin = Not at all Being so restless that it is hard to sit still: 0 = Not at all Becoming easily annoyed or irritable: 0 = Not at all Feeling afraid as if something awful might happen: 0 = Not at all Total OMAR-7 score (0-4 normal; 5-9 mild; 10-14 moderate; 15-21 severe): 0 Source: Developed by Drs. Star Palmer, Alyssia Muniz, Abe Mai and colleagues, with an educational sal from [employer]. OMAR-7 Assessment Billing OMAR-7 Assessment Tool: OMAR-7 Assessment 98634 Review of Systems Const Denies poor appetite and Denies weakness Eyes Denies no additional complaints ENT Reports Normal hearing present, Denies dizziness, Denies nasal congestion, Denies tinnitus and Denies sore throat Card Denies chest pain, Denies syncope, Denies rapid heart rate and Denies dyspnea Resp Denies cough and Denies dyspnea GI Denies change in stool character, Reports constipation, Denies diarrhea, Denies nausea and Denies vomiting Denies dysuria and Denies urinary frequency Neuro Reports Normal hearing present, Denies confusion, Denies dizziness, Denies syncope and Denies weakness Psych Denies confusion Physical exam (Primary Care) Vital Signs: Last Vital Signs Pulse 53 01/05/25 09:01 BP 136/62 01/05/25 09:01 Pulse Ox 98 01/05/25 09:01 Oxygen Delivery Method Room Air 01/05/25 09:01 BMI result Body Mass Index 22.2 Tobacco/Smoking Status: Tobacco use Status Tobacco use date assessed 01/05/25 01/05/25 09:03 Patient Tobacco Use Status Never used Tobacco 01/05/25 09:03 Tobacco use type Cigarette 01/05/25 09:03 e-Cigarette/Vaping Use Never Used 01/05/25 09:03 PHQ-9: PHQ-9 Score PHQ-9: Total score 0 01/05/25 09:09 Depression Screening Interpretation: Negative Thrive Assessment: Date of Thrive Assessment Date Thrive assessed 01/05/25 01/05/25 09:03 Currently or been in a relationship where the following occur: No concerns reported Const General: No confusion Orientation/consciousness: No confusion HENMT Other: impacted cerumen bialteral Head: Yes normocephalic Ears: external ears normal Face and sinus: Yes normal facial exam Mouth: moist mucous membranes Throat: Yes tonsils normal Eyes Conjunctivae: conjunctivae normal Pupils: Equal, round and reactive pupils present and Pupil accommodation reflex normal Direct Ophthalmoscopy: normal light reflex Neck Neck: No lymphadenopathy Thyroid: Thyroid normal Chest Chest palpation & inspection: normal inspection of the chest Resp Effort & Inspection: normal respiratory effort and no audible wheezes Auscultation: clear to auscultation bilaterally, no crackles, no wheezes and lung sounds not diminished Cardio Rate: regular rate Rhythm: regular rhythm Peripheral pulses: radial pulses present and dorsalis pedis present GI Other: guaaic stools negative , no enlarged prostate Palpation (GI): no masses Auscultation: normal bowel sounds and normoactive bowel sounds Male General Exam: Yes normal external exam Skin General skin exam: no rashes or lesions noted Rashes: no rashes Neuro General: No confusion Cranial nerves: Yes Equal, round and reactive pupils present and Yes Normal hearing present Cognition (Neuro): normal cognition Gait exam (Neuro): Normal gait present Motor exam (neuro): 5/5 motor strength present throughout Deep tendon reflexes (DTR's): Right brachioradialis reflex intensity grade: 2+, Left brachioradialis reflex intensity grade: 2+, Right patellar reflex intensity grade: 2+ and Left patellar reflex intensity grade: 2+ Extrem General: No edema Office Procedures Cerumen Removal From which ear canal was the cerumen removed: bilateral Removal: otoscope w/curette and cerumen loop/spoon Notes: patient tolerated procedure well, no complications and ear canal clear 25478-[id number] Wax Removal by Spoon/Curette Coding Level of Care Code Est Pt Level 3 (32578) Est Pt Prev Care >65y(83496) Diagnoses Annual physical exam Z00.00 Coronary artery disease involving [place] coronary artery of [place] heart without angina pectoris I25.10 Coronary Disease-Associated Artery/Lesion type: [place] artery [place] vs. transplanted heart: [place] heart Associated angina: without angina Hypercholesterolemia E78.00 Chronic kidney disease (CKD) stage G3a/A1, moderately decreased glomerular filtration rate (GFR) between 45-59 mL/min/1.73 square meter and albuminuria creatinine ratio less than 30 mg/g N18.31 Anemia, chronic disease D63.8 Benign prostatic hyperplasia with urinary frequency N40.1; R35.0 Lower urinary tract symptom presence: symptoms present Lower urinary tract symptom detail: urinary frequency Gastroesophageal reflux disease without esophagitis K21.9 Esophagitis presence: without esophagitis Essential hypertension I10 Hypertension type: essential hypertension Diarrhea R19.7 Impacted cerumen of both ears H61.23 CPT Codes Office Procedure - CPT: 99533-Zyy Wax Removal by Spoon/Curette ([id number]) Additional Codes OMAR-7 Assessment Billing - OMAR-7 Assessment Tool: OMAR-7 Assessment 36731 ([id number]) PHQ-9 - 89507 - PHQ-9 Billing: Yes ([id number]) Assessment & Plan Assessment & Plan (1) Annual physical exam: Code(s): Z00.00 - Encounter for general adult medical examination without abnormal findings Category: Medical Plan: Patient is advised to eat healthy, keep well hydrated, keep active and have adequate sleep. (2) Coronary artery disease: Comment: Stent placement 2003, asymptomatic, nuclear stress was negative CAD angiogram Dec 22 1016-echo February 2020 EF 60-65% Code(s): I25.10 - Atherosclerotic heart disease of [place] coronary artery without angina pectoris Category: Medical Qualifiers: Coronary Disease-Associated Artery/Lesion type: [place] artery [place] vs. transplanted heart: [place] heart Associated angina: without angina Qualified Code(s): I25.10 - Atherosclerotic heart disease of [place] coronary artery without angina pectoris Plan: Control the cholesterol, weight, blood pressure, on aspirin 81 mg once a day (3) Hypercholesterolemia: Code(s): E78.00 - Pure hypercholesterolemia, unspecified Category: Medical Plan: Avoid fried foods, chicken skin, eggs, butter margarine, pastries and meat. Be it pork or beef they have a lot of cholesterol on Zetia and atorvastatin May 2024 last blood work (4) Chronic kidney disease (CKD) stage G3a/A1, moderately decreased glomerular filtration rate (GFR) between 45-59 mL/min/1.73 square meter and albuminuria creatinine ratio less than 30 mg/g: Code(s): N18.31 - Chronic kidney disease, stage 3a Category: Medical Plan: Stable avoid NSAIDs (5) Anemia, chronic disease: Code(s): D63.8 - Anemia in other chronic diseases classified elsewhere Category: Medical Plan: Patient follows up with Hematology-Oncology and will continue to monitor (6) BPH (benign prostatic hyperplasia): Code(s): N40.0 - Benign prostatic hyperplasia without lower urinary tract symptoms Category: Medical Qualifiers: Lower urinary tract symptom presence: symptoms present Lower urinary tract symptom detail: urinary frequency Qualified Code(s): N40.1 - Benign prostatic hyperplasia with lower urinary tract symptoms; R35.0 - Frequency of micturition Plan: Stable on Proscar (7) GERD (gastroesophageal reflux disease): Code(s): K21.9 - Gastro-esophageal reflux disease without esophagitis Category: Medical Qualifiers: Esophagitis presence: without esophagitis Qualified Code(s): K21.9 - Gastro-esophageal reflux disease without esophagitis Plan: Avoid the foods that causes that usually spicy foods, tomato products, juices, coffee, soda and foods that your sensitive to. After eating do not lie down, allow 3-4 hours before in lie down. And keep the head of bed above 30 degrees to avoid the acid from going up. (8) Hypertension: Code(s): I10 - Essential (primary) hypertension Category: Medical Qualifiers: Hypertension type: essential hypertension Qualified Code(s): I10 - Essential (primary) hypertension Plan: Continue with blood pressure medication. Decrease salt intake and exercise on atenolol 25 mg once a day (9) Diarrhea: Code(s): R19.7 - Diarrhea, unspecified Category: Medical (10) Impacted cerumen of both ears: Code(s): H61.23 - Impacted cerumen, bilateral Category: Medical Plan History of Present Illness The patient is a 79-year-old male presenting for an annual physical examination with specific concerns about his gastrointestinal and sinus issues. He recounts recurring episodes involving gastrointestinal disturbances starting August 14, 2023, occurring during activities involving physical exertion, like singing, with subsequent similar episodes noted in November 2023. The patient associates these episodes with concurrent sinus congestion developing into a cough ? experienced thrice since mid-November 2023. Despite these episodes, his chronic conditions, including GERD, were noted to be stable under current medication regimens. Past hematological evaluation in October 2023 confirmed mild anemia with specific symptoms like lightheadedness but no significant recent changes in his health history beyond these gastrointestinal and sinus episodes. The patient is engaged in understanding the potential gut-brain connection, shaping his perception of these symptoms' etiology, though no specific dietary correlations have been identified. Health Maintenance - Influenza and shingles vaccinations up-to-date. - Colonoscopies no longer required. - Annual wellness examination completed. - Routine monitoring of cardio-metabolic parameters including LDL cholesterol and blood pressure. - Hematology follow-up with stable chronic anemia. - Dermatology evaluation for actinic keratosis, treated with cyclopirox. Social History - Active participation in choir and singing groups. - Regular exercise at the gym three times weekly. - No use of alcohol or tobacco. - Certified in mental health counseling and involved in nutritional education programs. - Concern over aging yet remains active socially and physically. Review of Systems - Respiratory: Reports sinus congestion, postnasal drip, runny nose, and cough. - Gastrointestinal: Reports episodes of diarrhea, bloating, and altered bowel consistency. Denies heartburn. - Cardiovascular: Denies chest pain or shortness of breath. - Neurological: Reports occasional lightheadedness during attacks. Denies dizziness, headaches, or passing out (except with viral Norovirus event). - General: Reports feeling hot during attacks. Denies fever. - Renal/Genitourinary: Reports frequent nocturnal urination, no pain, or problems during urination. - Musculoskeletal: Denies any joint pain or swelling. Physical Exam General: Cooperative, healthy appearing, comfortable, no acute distress and well developed Orientation: Patient oriented x3 Limitations: No limitations Head: Normal to inspection Ears: Hearing grossly normal bilaterally, some ear wax noted Nose: Sinus congestion and postnasal drip noted Face and sinus: Normal facial exam, sinus congestion noted Eyes: Appearance normal, both eyes and all related structures Neck: Normal visual inspection and Yes full ROM Respiratory: Normal respiratory effort and able to speak in complete sentences. Clear to auscultation bilaterally Cardiovascular: Regular rate and rhythm. Normal S1 and S2 GI: Normal to inspection. Soft to palpation and nontender, episodes of diarrhea noted Skin: No rashes or lesions noted, athlete's foot treated with cream Neuro: Patient oriented x3 Extremities: Normal to inspection Results - Labs: Hemoglobin 12.3 g/dL, platelet count 140,000/?L, white blood cell count 4.4 x 10^9/L; renal function normal, creatinine at 1.27 mg/dL. - LDL cholesterol level at 40 mg/dL (May 2024 measure). Plan Given the patient's annual visit and presenting symptoms, I have tailored his current regimen, reviewing his chronic condition management and medication effects. I have suggested omeprazole be paused to monitor for potential improvements in stool consistency while maintaining Pepcid for GERD. After recognizing potential gut-related side effects from Zetia, continued monitoring and dietary consideration were proposed. Current cholesterol management by atorvastatin remains critical, with follow-up contingent on any changes. Anticipatory guidance included addressing nocturia through lifestyle adjustments. A gastroenterology referral was discussed to explore persistent gastrointestinal symptoms, understanding potential scheduling complexities. Patient was informed and verbally consented to the use of an ambient scribe for clinic note documentation during this visit. Discussion Notes During this visit, I engaged in a discussion about ongoing sinus issues and gastrointestinal symptoms. I highlighted the role of medications, specifically discontinuing omeprazole, to assess its potential role in diarrhea while continuing Pepcid for reflux management. I emphasized the need to monitor Zetia's effects on the gut and discussed callbacks or adjustments depending on his response. We reviewed his lab results indicating stable anemia and chronic conditions. A referral to gastroenterology was discussed as a longer-term consideration. I advised on dietary and lifestyle habits, including water intake adjustments before bedtime and noting dietary impacts on gut health. Patient Instructions - Stop taking omeprazole for a while; keep taking Pepcid. - Take your medications as prescribed (Aspirin, Atorvastatin, Zetia, Priscilla, Nasonex). - Watch what you eat to see if it affects your stomach. - Adjust drinking and eating patterns to reduce nighttime bathroom trips. - Follow up with labs as scheduled. - Consider seeing doper for ongoing stomach issues. Orders: Orders Free T4 (Free Thyroxine) Today Z95.5 - Presence of coronary angioplasty implant and graft Lipid Panel Today E78.00 - Pure hypercholesterolemia, unspecified, Z95.5 - Presence of coronary angioplasty implant and graft Complete Blood Count Auto Diff Today Z95.5 - Presence of coronary angioplasty implant and graft Comprehensive Met. Panel Today Z95.5 - Presence of coronary angioplasty implant and graft Thyroid Stimulating Hormone Today Z95.5 - Presence of coronary angioplasty implant and graft Vitamin B12 and Folate Today Z95.5 - Presence of coronary angioplasty implant and graft Magnesium Today Z95.5 - Presence of coronary angioplasty implant and graft Referrals Gastroenterology Referral R19.7 - Diarrhea, unspecified
--- OUTSIDE RECORDS SUMMARY | 2025-01-05 09:12 | XMS_ITS ---
Author Organization [facility] Address [address] [place] [address] Care Team Providers Care Forensic Technician Name Role Phone Francisco Garcia Primary Care Provider Dutch Byrd [phone] REASON FOR VISIT Rash Encounters Encounter Location Date Provider Diagnosis [facility] [address] [place] [address] 06/19/2024 Dutch Geiger Plan Of Treatment No Information Progress Notes * Roverto LENTZDOB:1945 (79 yo M)Acc No.[id number]:06/19/2024 Patient:?Roverto Lentz :1945???Age:79 Y???Sex:Male Address:[address] [place] [address] * true * Date:? Generated for Printi ng/Fasyedg/eTransmitting on:?01/05/2025 09:11 AM EDT
--- OUTSIDE RECORDS SUMMARY | 2025-01-05 09:12 | XMS_ITS | Clinical Summary ---
Author Organization [facility] Address [address] [place] [address] Care Team Providers Care Principal Investigator Name Role Phone Francisco Garcia MD Primary Care Provider [phone] Allergies Active Allergy Reactions Criticality Noted Date [...] patient's age to complete this topic Insurance Payer Benefit Plan / Group Subscriber ID Effective Dates Phone Address Type [place] ONLY [id number] 2010-Pre sent [phone] [employer] [address] [place] [address] Medicare [employer] [place] [employer] [place] [id number] 2017-Pr esent [address] [place] [address] Care Teams Principal Investigator Relationship Specialty Start Date End Date Po, Francisco Tucker MD [address] [facility] [facility] [place] [address] PCP - General Internal Medicine 12/07/17
--- OUTSIDE RECORDS SUMMARY | 2025-01-05 09:12 | XMS_ITS | Clinical Summary ---
Author Organization [facility] Address [address] [facility] [address] [place] [address] Phone Care Team Providers Care Clam Shovel Operator Name Role Phone Francisco Garcia MD Primary Care Provider [phone] Allergies Active Allergy Reactions Criticality Noted Date [...] Due Date Last Done Comments Pneumococcal Vaccine: 50+ Ye ars (1 of 2 - PCV) 1964 Influenza Vaccine (Season Ended) 2025 Hepatitis B Vaccine Aged Out No longe r eligible based on patient's age to complete this topic Insurance [facility] Medicare [facility] Medicare Care Teams Clam Shovel Operator Relationship Specialty Start Date End Date Francisco Garcia MD [facility] [address] [place], [place] PCP - General 09/02/20
--- OUTSIDE RECORDS SUMMARY | 2025-01-05 09:12 | XMS_ITS | Patient Health Record ---
Author Organization [facility] Address [address] [place] [address] Care Team Providers Care Distilling Department Supervisor Name Role Phone Po Francisco STALLWORTH Primary Care Provider UnavailStar Rodriguez Unavailable [phone] Montrell Cerda Unavailable Unavailable Allergies Allergen (clinical [...] Problem Status W/U Status Risk Notes Problem [id number] Colon cancer screening (Z12.11) Active confirmed Problem 48024541 Change in bowel habits (R19.4) Active confirmed Problem 593581791 Gastroesophageal reflux disease without esophagitis (K21.9) Active confirmed Problem 19466402 Esophageal spasm (K22.4) Active confirmed Problem Diverticulosis of colon (655714245) Diverticulosis of colon (K57.30) Active confirmed Plan Of Treatment Pending Test Test Name Order Date CELIAC PANEL #10 11/24/2022 Future Test Test Name Order Date COLONOSCOPY 07/20/2012 COLONOSCOPY 11/24/2022 Insurance Providers Payer Name Payer Address Payer Phone Subscriber Number Group Number Insured Name Patient Relationship to Insured Coverage Start Date Coverage End Date MEDICARE [place] [address] [place] [address] [phone] [id number] KIEL LENTZ Self - patient is the insured [facility] [address] [place], [place] [id number] KIEL LENTZ Self - patient is the insured Medical (General) History Medical History History ICD Code Esophageal reflux-EGD in 08/2004-negative Diverticulosis Anemia-followed by Dr. Cerda Mild leukopenia-followed by Dr. Cerda CAD-stent placed in 2003-no [place]; 2 stents in 2012; 12/2016 had negative cardiac cath with Dr. Khanna BPH Denies MS,DM,CVA,Lung disease,renal dise ase Neg. colonoscopy in 06/2002 Microscopic hematuria Colonoscopy in 08/2012--1 tiny hyperplast ic polyp removed Surgical History Surgery Date(Month/Year) Hemorrhoid surgery rotator cuff surgery right sep 2016 cardiac stents x3
--- OUTSIDE RECORDS SUMMARY | 2025-01-05 09:12 | XMS_ITS | Clinical Summary ---
Author Organization [facility] it Address [address] [place] [address] Care Team Providers Care Steel Floor Pan Placing Supervisor Name Role Phone Unavailable Primary Care Provider [...] Vaccines (1 of 2) 1995 RSV Immunization Adult Patients (1 - 1-dose 75+ series) 2020 Cholesterol Screening (Lipid Panel) 07/26/2022 Depression Screening 07/26/2022 Falls Risk Assessment 07/26/2022 Hepatitis C Screening 07/26/2022 Social Influencers of Health Screening 07/26/2022 COVID-19 Vaccine ( season) 2024 10/14/2020, 09/23/2020 Influenza Vaccine (Season Ended) 2025 07/23/2020, 07/18/2019, 07/12/2018, Additional history exists HIB Vaccines [...] age to complete this topic Meningococcal B Vaccine Aged Out No l onger eligible based on patient's age to complete this topic RSV Immunization Patients Under 20 months Aged Out No longer eligible based on patient's age to complete this topic Varicella Vaccines Aged Out No longer eligible based on patient's age to complete this topic
--- OUTSIDE RECORDS SUMMARY | 2025-01-05 09:12 | XMS_ITS | Patient Health Record ---
Author Organization [facility] Address [address] [facility] [place] [address] Care Team Providers Care Cargo Agent Name Role Phone Francisco Garcia Primary Care Provider Dutch Byrd Unavailable [phone] Allergies Allergen (clinical drug ingredient) Drug/Non Drug [...] No Encounters Encounter Location Date Provider Diagnosis [facility] [address] [place] [place] [address] 06/19/2024 Dutch Geiger Plan Of Treatment Pending Test Test Name Order Date X ray : Foot, left 3V 12/03/2022 Insurance Providers Payer Name Payer Address Payer Phone Subscriber Number Group Number Insured Name Patient Relationship to Insured Coverage Start Date Coverage End Date Medicare National [employer] [address] [place] [address] [id number] Roverto Pan Self - patient is the insured [facility] [address] [place] [address] [phone] [id number] Roverto Pan Self - patient is the insured Medical (General) History Medical History History ICD Code Cataracts covid-19 Heart disease Reflux ( GERD) chronic sinusitis Chicken pox Measles Vascular grafts Surgical History Surgery Date(Month/Year) rotator cuff 2018
== END 2025-01-05 09:48 | disposition home or self-care (01) ==
LOC: HO.HMCH 08:59
PROVIDERS: PCP Internal Medicine; Visit Provider Internal Medicine
DX: Z00.00 Encounter for general adult medical examination without abnormal findings (principal); I25.10 Atherosclerotic heart disease of native coronary artery without angina pectoris; I12.9 Hypertensive chronic kidney disease with stage 1 through stage 4 chronic kidney disease, or unspecified chronic kidney disease; N18.31 Chronic kidney disease, stage 3a; E78.00 Pure hypercholesterolemia, unspecified; D63.8 Anemia in other chronic diseases classified elsewhere; N40.1 Benign prostatic hyperplasia with lower urinary tract symptoms; H61.23 Impacted cerumen, bilateral; R35.0 Frequency of micturition; K21.9 Gastro-esophageal reflux disease without esophagitis; R19.7 Diarrhea, unspecified

== ENCOUNTER → 2025-01-05 08:58 | Outpatient (BNVA) | payer MEDICARE, BC, SELFPAY | PROVIDERS: PCP Internal Medicine; Visit Provider Internal Medicine | DX: Z00.00 Encounter for general adult medical examination without abnormal findings (principal); I25.10 Atherosclerotic heart disease of native coronary artery without angina pectoris; E78.00 Pure hypercholesterolemia, unspecified; I12.9 Hypertensive chronic kidney disease with stage 1 through stage 4 chronic kidney disease, or unspecified chronic kidney disease; N18.31 Chronic kidney disease, stage 3a; D63.8 Anemia in other chronic diseases classified elsewhere; N40.1 Benign prostatic hyperplasia with lower urinary tract symptoms; R35.0 Frequency of micturition; K21.9 Gastro-esophageal reflux disease without esophagitis; R19.7 Diarrhea, unspecified; H61.23 Impacted cerumen, bilateral | CPT/HCPCS: 69210; 96127; 99212; 99397 ==

== ENCOUNTER 2025-01-11 13:16 | Outpatient (REF) | payer MEDICARE, BC, SELFPAY ==
--- OUTSIDE RECORDS SUMMARY | 2025-01-11 13:22 | XMS_ITS | Patient Health Record ---
Author Organization [facility] Address [address] [place] [address] Care Team Providers Care System Operator Name Role Phone Francisco Garcia Primary Care Provider Dutch Byrd Unavailable [phone] Allergies Allergen (clinical drug ingredient) Drug/Non Drug [...] No Encounters Encounter Location Date Provider Diagnosis [facility] [address] [place] [address] 06/19/2024 Dutch Geiger Plan Of Treatment Pending Test Test Name Order Date X ray : Foot, left 3V 12/03/2022 Insurance Providers Payer Name Payer Address Payer Phone Subscriber Number Group Number Insured Name Patient Relationship to Insured Coverage Start Date Coverage End Date Medicare National [employer] [address] [place] [address] [id number] Roverto Pan Self - patient is the insured [facility] [address] [place] [address] [phone] [id number] Roverto Pan Self - patient is the insured Medical (General) History Medical History History ICD Code Cataracts covid-19 Heart disease Reflux ( GERD) chronic sinusitis Chicken pox Measles Vascular grafts Surgical History Surgery Date(Month/Year) rotator cuff 2018
[2025-01-11 13:28] LABS: MANUAL DIFF FLAG NO
[2025-01-11 13:33] LABS: Basophils Absolute Auto 0.1 X10*3/uL (0.0-0.2); Basophils Percent Auto 1.1 % (0-2); Eosinophils Percent Auto 0.6 % (0-4); Hematocrit 38.8 % (42.0-52.0); Hemoglobin 12.7 g/dl (14.0-18.0); Imm Gran Abs Auto 0.02 X10*3/uL (0.00-0.03); Imm Gran Pct Auto 0.4 % (0.0-0.4); Lymphocytes Absolute Auto 1.6 X10*3/uL (1.2-4.9); Mean Corpuscular HGB Conc 32.7 g/dl (31.0-36.0); Mean Corpuscular Hemoglobin 31.2 pg (27.0-33.0); Mean Corpuscular Volume 95.3 fL (80.0-98.0); Mean Platelet Volume 9.6 fL (9.4-12.4); Monocytes Absolute Auto 0.6 X10*3/uL (0.1-1.2); Monocytes Percent Auto 10.5 % (2-11); Neutrophils Absolute Auto 3.1 x10*3/uL (2.0-8.3); Neutrophils Percent Auto 57.4 % (45-73); Platelet Count 157 X10*3/uL (160-400); Red Blood Count 4.07 X10*6/uL (4.60-5.80); Red Cell Distribution Width 14.2 % (11.0-16.0); White Blood Count 5.3 X10*3/uL (4.8-10.8)
[2025-01-11 14:03] LABS: Parathyroid Hormone Intact 75.4 pg/mL (8.7-77.1)
[2025-01-11 14:05] LABS: Alanine Aminotransferase 45 U/L (0-40); Albumin Level 4.2 g/dL (3.5-5.0); Alkaline Phosphatase 111 U/L (39-117); Anion Gap 10 (12-20); Aspartate Amino Transferase 42 U/L (5-37); Bilirubin Total 0.6 mg/dL (0.0-1.0); Blood Urea Nitrogen 17 mg/dL (9-16); Calcium 9.3 mg/dL (8.4-10.2); Carbon Dioxide 28 mmol/L (22-29); Chloride 108 mmol/L (96-108); Cholesterol 123 mg/dL (<200); Estimated Glomerular Filt Rate 54; Glucose Random 91 mg/dL (60-115); HDL Cholesterol 70 mg/dL (>40); LDL Cholesterol Calculated 42 mg/dL (<100); Magnesium 2.1 mg/dL (1.6-2.6); Potassium 4.2 mmol/L (3.3-5.1); Sodium 142 mmol/L (135-145); Total Protein 6.8 g/dL (6.5-8.0); Triglycerides 58 mg/dL (<150)
[2025-01-11 14:20] LABS: Free T4 (Free Thyroxine) 0.89 ng/dL (0.71-1.85)
[2025-01-11 14:23] LABS: Thyroid Stimulating Hormone 1.94 uIU/mL (0.32-4.0); Vitamin D 25-OH Total 106.6 ng/mL (>30)
[2025-01-11 14:31] LABS: Folate 19.7 ng/mL (> or = 4.0); Vitamin B12 1154 pg/mL (200-900)
== END 2025-01-11 13:17 | disposition home or self-care (01) ==
LOC: HO.LAB 13:16
PROVIDERS: Absent Provider Internal Medicine Nephrology; PCP Internal Medicine; Visit Provider Internal Medicine
DX: Z95.5 Presence of coronary angioplasty implant and graft (principal); E78.00 Pure hypercholesterolemia, unspecified; I10 Essential (primary) hypertension; N18.31 Chronic kidney disease, stage 3a
CPT/HCPCS: 36415; 80053; 80061; 82306; 82607; 82746; 83735; 83970; 84439; 84443; 85025

== ENCOUNTER 2025-01-17 16:12 | Outpatient (AMB) | payer MEDICARE, BC, SELFPAY ==
--- OUTSIDE RECORDS SUMMARY | 2025-01-17 16:18 | XMS_ITS | Patient Health Record ---
Author Organization [facility] Address [address] [facility] [place] [facility] [place] [address] Care Team Providers Care Batch Unloader Name Role Phone Francisco Garcia Primary Care Provider Dutch Byrd Unavailable [phone] Allergies Allergen (clinical drug ingredient) Drug/Non Drug [...] Date Provider Diagnosis [facility] [address] [place] [address] 06/19/2024 Dutch Geiger Plan Of Treatment Pending Test Test Name Order Date X ray : Foot, left 3V 12/03/2022 Insurance Providers Payer Name Payer Address Payer Phone Subscriber Number Group Number Insured Name Patient Relationship to Insured Coverage Start Date Coverage End Date Medicare National [employer] [address] [place] [address] [id number] Roverto Pan Self - patient is the insured [facility] [address] [place] [address] [phone] [id number] Roverto Pan Self - patient is the insured Medical (General) History Medical History History ICD Code Cataracts covid-19 Heart disease Reflux ( GERD) chronic sinusitis Chicken pox Measles Vascular grafts Surgical History Surgery Date(Month/Year) rotator cuff 2018
[2025-01-17 16:28] VITALS: BP 130/60; PULSE 71; O2SAT 99; BMI 22.3
--- NOTE | 2025-01-17 16:28 | HO.NEPHOV_ITS ---
Vital Signs 01/17/25 16:28 Height 5 ft 11 in Weight 160 lb BMI 22.3 BP 130/60 Blood Pressure Location Lt brachial Position Sitting Pulse 71 Pulse Source Pulse Oximeter Pulse Oximetry (%) 99 Oxygen Delivery Method Room Air Intake Visit Reasons: CKD Transition Lead Required: No Accompanied by: Self / Same As Patient Allergies itraconazole [ITRACONAZOLE] Allergy (Severe, Verified 01/17/25 16:30) SHORTNESS OF BREATH, edema, edema HPI Comments Details: Roverto was seen in the office in follow-up for his chronic kidney disease and hypertension. He has history of coronary artery disease and had undergone stenting twice. He currently does not have any chest pain, shortness of breath, dizziness, ankle swelling, palpitation or syncope. His blood pressure had been at goal. He now has hearing aids. He does not have any urinary symptoms. He is compliant with his medications. He feels well [facility] Medical History Skin cancer, basal cell Left leg DVT Pancytopenia Hypertension Chronic kidney disease (CKD) stage G3a/A1, moderately decreased glomerular filtration rate (GFR) between 45-59 mL/min/1.73 square meter and albuminuria creatinine ratio less than 30 mg/g Right rotator cuff tear History of renal calculi Coronary artery disease Hypercholesterolemia BPH (benign prostatic hyperplasia) GERD (gastroesophageal reflux disease) Surgical History History of coronary artery stent placement History of repair of rotator cuff H/O basal cell carcinoma excision History of prostate biopsy History of hemorrhoidectomy Family History Father Past heart attack S/P triple vessel bypass Mother Memory loss Father Prostate cancer Maternal Uncle Prostate cancer Esophagus cancer Paternal Uncle Prostate cancer Sister Lung cancer Social History Household Members: Spouse, Family and Children Housing: House Are you a primary residential care facility manager to a significant other at home: No Do you presently have visiting nurse or other home services: No Alcohol intake: current Alcohol intake frequency: does not drink Alcohol type: wine Comment: 2x a year 1 glass Patient Tobacco Use Status: Never used Tobacco Tobacco use type: Cigarette e-Cigarette/Vaping Use: Never Used Second Hand Smoke Exposure: No service: No Current occupational status: retired Cognitive needs: No Hearing needs: No Vision needs: Yes Review of Systems Const All systems reviewed & are unremarkable except as noted in HPI and below Physical Exam Vital Signs: Last Vital Signs Pulse 71 01/17/25 16:28 BP 160/62 H 01/17/25 16:28 Pulse Ox 99 01/17/25 16:28 Oxygen Delivery Method Room Air 01/17/25 16:28 BMI result Body Mass Index 22.3 Const General: comfortable and no acute distress Orientation/consciousness: patient oriented x3 HEENT Head: Yes normocephalic Mouth: Normal oral and palatal mucosa present Eyes EOM: EOMs intact bilaterally Neck Neck: Yes supple Resp Auscultation: clear to auscultation bilaterally Cardio Jugular venous distension: no JVD Rate: regular rate GI Palpation (GI): Soft to palpation Auscultation: normal bowel sounds General: Yes no CVA tenderness Back/Spine/Pelvis Back: no CVA tenderness Skin General skin exam: no rashes or lesions noted Neuro General: patient oriented x3 and moves all extremities Extrem General: Yes no pedal edema Results Reviewed Nephrology Results: Hgb 12.7 g/dl (14.0-18.0) L 01/11/25 WBC 5.3 X10*3/uL (4.8-10.8) 01/11/25 Plt Count 157 X10*3/uL (160-400) L 01/11/25 Sodium 142 mmol/L (135-145) 01/11/25 Potassium 4.2 mmol/L (3.3-5.1) 01/11/25 Chloride 108 mmol/L (96-108) 01/11/25 Carbon Dioxide 28 mmol/L (22-29) 01/11/25 BUN 17 mg/dL (9-16) H 01/11/25 Creatinine 1.29 mg/dL (0.5-1.4) 01/11/25 Calcium 9.3 mg/dL (8.4-10.2) 01/11/25 PTH Intact 75.4 pg/mL (8.7-77.1) 01/11/25 Assessment & Plan Assessment & Plan (1) Chronic kidney disease (CKD) stage G3a/A1, moderately decreased glomerular filtration rate (GFR) between 45-59 mL/min/1.73 square meter and albuminuria creatinine ratio less than 30 mg/g: Code(s): N18.31 - Chronic kidney disease, stage 3a Category: Medical (2) Hypertension: Code(s): I10 - Essential (primary) hypertension Category: Medical Qualifiers: Hypertension type: essential hypertension Qualified Code(s): I10 - Essential (primary) hypertension Plan Roverto has some chronic kidney disease for long time likely from vascular disease. His renal functions had been stable at baseline. His blood pressure is at goal. He is on statins. His lipid profile is acceptable. He does not take any nonsteroidal anti-inflammatory medications. He tries to remain hydrated well . He may be a candidate for SGLT2 i given CKD. I did not make any medication changes today. I answered all his questions. Follow-up blood work ordered Orders: Orders Blood Urea Nitrogen 8 Months I10 - Essential (primary) hypertension, N18.31 - Chronic kidney disease, stage 3a Creatinine 8 Months I10 - Essential (primary) hypertension, N18.31 - Chronic kidney disease, stage 3a Electrolytes 8 Months I10 - Essential (primary) hypertension, N18.31 - Chronic kidney disease, stage 3a Coding Level of Care Code Est Pt Level 4 (77678) Diagnoses Chronic kidney disease (CKD) stage G3a/A1, moderately decreased glomerular filtration rate (GFR) between 45-59 mL/min/1.73 square meter and albuminuria creatinine ratio less than 30 mg/g N18.31 Essential hypertension I10 Hypertension type: essential hypertension
== END 2025-01-17 16:54 | disposition home or self-care (01) ==
LOC: HO.HKA 16:13
PROVIDERS: PCP Internal Medicine; Visit Provider Internal Medicine Nephrology
DX: N18.31 Chronic kidney disease, stage 3a (principal); I10 Essential (primary) hypertension
CPT/HCPCS: 99214

== ENCOUNTER → 2025-01-17 16:12 | Outpatient (BNVA) | payer MEDICARE, BC, SELFPAY | PROVIDERS: PCP Internal Medicine; Visit Provider Internal Medicine Nephrology | DX: I12.9 Hypertensive chronic kidney disease with stage 1 through stage 4 chronic kidney disease, or unspecified chronic kidney disease (principal); I25.10 Atherosclerotic heart disease of native coronary artery without angina pectoris; N18.31 Chronic kidney disease, stage 3a | CPT/HCPCS: 99212 ==

== ENCOUNTER 2025-02-27 13:37 | Outpatient (REF) | payer SELFPAY ==
--- OUTSIDE RECORDS SUMMARY | 2025-02-27 14:22 | XMS_ITS | Clinical Summary ---
Author Organization [facility] it Address [address] [place] [address] Care Team Providers Care Automotive Hardware Engineer Name Role Phone Unavailable Primary Care Provider [...] season) 2024 10/14/2020, 09/23/2020 Influenza Vaccine (#1) 2025 , 07/18/2019, 07/12/2018, Additional history exists HIB [...]
--- OUTSIDE RECORDS SUMMARY | 2025-02-27 14:22 | XMS_ITS | Clinical Summary ---
Author Organization [facility] Address [address] [place] [address] Care Team Providers Care Director Of Labor And Delivery Name Role Phone Francisco Garcia MD Primary Care Provider [phone] Allergies Active Allergy Reactions Criticality Noted Date [...] 1-dose 75+ series) 2020 Influenza Vaccine (#1) 2025 Hepatitis B Vaccines Aged Out No long er eligible based on patient's age to complete this topic RSV Ped < 20 months Aged Out No longe r eligible based on patient's age to complete this topic Care Teams Director Of Labor And Delivery Relationship Specialty Start Date End Date Po, Francisco Tucker MD [address] [facility] [place] [facility] [place] [address] PCP - General Internal Medicine 12/07/17
--- OUTSIDE RECORDS SUMMARY | 2025-02-27 14:22 | XMS_ITS | Clinical Summary ---
Author Organization [facility] Address [address] [facility] [address] [place] [address] Phone Care Team Providers Care Enroller Name Role Phone Francisco Garcia MD Primary Care Provider [phone] Allergies Active Allergy Reactions Criticality Noted Date [...] of 2 - PCV) 1964 Influenza Vaccine (#1) 2025 Hepatitis B Vaccine Aged Out No longe r eligible based on patient's age to complete this topic Insurance [facility] Medicare [facility] Medicare Care Teams Enroller Relationship Specialty Start Date End Date Francisco Garcia MD [facility] [address] [place], [place] PCP - General 09/02/20
--- OUTSIDE RECORDS SUMMARY | 2025-02-27 14:22 | XMS_ITS | Patient Health Record ---
Author Organization [facility] Address [address] [place] [address] Care Team Providers Care Editorial Specialist Name Role Phone Francisco Garcia Primary Care Provider Dutch Byrd Unavailable [phone] Allergies Allergen (clinical drug ingredient) Drug/Non Drug Allergy documented on EMR Reaction Allergy Type Onset Date Status itraconazole Itraconazole heart failure Drug Allergy Active Reason For Referral No Information Medications Medication SIG (Take, Route, Frequency, Duration) Notes Start Date End Date Status Ezetimibe 10 MG TAKE 1 TABLET BY ALKA TH EVERY DAY Oral; Duration: 90 Active Aspirin 81 MG 1 tablet Orally Once a day; Duration: 30 day(s) Active Ciclopirox Olamine 0.77 % 1 application to affected area Externally Twice a day to effected areas on feet; Duration: 30 days Active Omeprazole 40 MG Oral; Duration: 90 Active Atorvastatin Calcium 40 MG Oral; Duration: 90 Active Atenolol 25 MG Oral; Duration: 90 Active Finasteride 5 MG Oral; Duration: 90 Active Social History Tobacco Use: Social History Observation [...] No Encounters Encounter Location Date Provider Diagnosis [facility] [address] [place] [address] 06/19/2024 Dutch Geiger Plan Of Treatment Pending Test Test Name Order Date X ray : Foot, left 3V 12/03/2022 Insurance Providers Payer Name Payer Address Payer Phone Subscriber Number Group Number Insured Name Patient Relationship to Insured Coverage Start Date Coverage End Date Medicare National Govt Sv[employer] [address] [place] [address] [id number] Roverto Pan Self - patient is the insured [facility] [address] [place] [address] [id number] Roverto Pan Self - patient is the insured Medical (General) History Medical History History ICD Code Cataracts covid-19 Heart disease Reflux ( GERD) chronic sinusitis Chicken pox Measles Vascular grafts Surgical History Surgery Date(Month/Year) rotator cuff 2018
--- OUTSIDE RECORDS SUMMARY | 2025-02-27 14:22 | XMS_ITS | Patient Health Record ---
Author Organization [facility] Address [address] [place] [address] Care Team Providers Care Indexer Name Role Phone Po Francisco STALLWORTH Primary Care Provider UnavailStar Rodriguez Unavailable [phone] Montrell Cerda Unavailable Unavailable Allergies Allergen (clinical [...] Problem Status W/U Status Risk Notes Problem [id number] Colon cancer screening (Z12.11) Active confirmed Problem 40217416 Change in bowel habits (R19.4) Active confirmed Problem 972664086 Gastroesophageal reflux disease without esophagitis (K21.9) Active confirmed Problem 91730548 Esophageal spasm (K22.4) Active confirmed Problem Diverticulosis of colon (795112600) Diverticulosis of colon (K57.30) Active confirmed Plan Of Treatment Pending Test Test Name Order Date CELIAC PANEL #10 11/24/2022 Future Test Test Name Order Date COLONOSCOPY 07/20/2012 COLONOSCOPY 11/24/2022 Next Appt Details Provider Name:Star Dockery , 04/24/2025 01:20:00 PM, [address], [address], [place], [address], Insurance Providers Payer Name Payer Address Payer Phone Subscriber Number Group Number Insured Name Patient Relationship to Insured Coverage Start Date Coverage End Date MEDICARE OF [place] [address] [place] [address] [id number] KIEL LENTZ Self - patient is the insured [facility] [address] [place], [place] [id number] KIEL LENTZ Self - patient is the insured Medical (General) History Medical History History ICD Code Esophageal reflux-EGD in 08/2004-negative Diverticulosis Anemia-followed by Dr. Cerda Mild leukopenia-followed by Dr. Cerda CAD-stent placed in 2003-no [place]; 2 stents in 2012; 12/2016 had negative cardiac cath with Dr. Khanna BPH Denies AK,DM,CVA,Lung disease,renal dise ase Neg. colonoscopy in 06/2002 Microscopic hematuria Colonoscopy in 08/2012--1 tiny hyperplast ic polyp removed Surgical History Surgery Date(Month/Year) Hemorrhoid surgery rotator cuff surgery right sep 2016 cardiac stents x3
== END 2025-02-27 13:38 | disposition home or self-care (01) ==
LOC: HO.HAP 13:37
PROVIDERS: Visit Provider Internal Medicine
DX: Z46.1 Encounter for fitting and adjustment of hearing aid (principal); H90.3 Sensorineural hearing loss, bilateral
CPT/HCPCS: V5267

== ENCOUNTER 2025-05-08 09:32 | Outpatient (AMB) | payer MEDICARE, BC, SELFPAY ==
--- OUTSIDE RECORDS SUMMARY | 2025-04-24 09:20 | XMS_ITS ---
Author Organization [facility] Address [address] [place] [address] Care Team Providers Care Financial Recording Clerk Name Role Phone Francisco Garcia MD Primary Care Provider Star Blackman [phone] Montrell Cerda Unavailable Unavailable REASON FOR VISIT Patient presents today for diarrhea Encounters Encounter Location Date Provider Diagnosis [facility] [address] [place] [phone] 04/24/2025 Star Dockery Plan Of Treatment No Information Progress Notes * KIEL LENTZDOB:1945 (80 yo M)Acc No.[id number]:04/24/2025 Progress Notes Patient: KIEL LOYD Provider: Yasir Dockery MD :1945 A ge:80 Y S ex:Male Date:04/24/2025 Address:[address] [facility] [id number] Pcp:Francisco Garcia MD Subjective: * Chief Complaints: [...] 04/24/2025 Generated for Thomas smallwood/Jossy/eTransmitting on: 0 05/08/2025 12:05 PM EDT
[2025-05-08 09:36] VITALS: BP 110/72; PULSE 50; BMI 22.4
--- NOTE | 2025-05-08 09:36 | MHC.OFFVIS ---
Vital Signs 05/08/25 09:36 Height 5 ft 11 in Weight 160 lb 14.999 oz BMI 22.4 BP 110/72 Blood Pressure Location Lt brachial Position Sitting Pulse 50 Intake Visit Reasons: 1 yr fu Intake Note: 1 year follow-up with ekg feeling Retail Team Member Required: No Allergies itraconazole (ITRACONAZOLE) Allergy (Severe, Verified 01/17/25 16:30) SHORTNESS OF BREATH, edema, edema Medication List - Last Reconciled 05/08/25 by Rajan Khanna MD aspirin 81 mg PO DAILY atenolol 25 mg PO DAILY atorvastatin (Lipitor) 40 mg PO DAILY ezetimibe 10 mg PO DAILY famotidine (Pepcid) 20 mg PO BEDTIME finasteride (Proscar) 5 mg PO DAILY mometasone 50 mcg/actuation (Nasonex) 2 sprays intranasal DAILY multivitamin 1 tab PO DAILY nitroglycerin 0.4 mg sublingual Q5M omeprazole 40 mg PO DAILY HPI Comments Details: Roverto comes for follow-up. He has been doing overall well from cardiac perspective. Remains very active and with exertion has no symptoms. Denies any chest pain, fatigue, shortness of breath. No symptoms of heart failure. Taking all his medications. Last LDL was 41 mg/dL. Denies any prolonged palpitation irregular heartbeat. No lightheadedness, syncope. [facility] Medical History Skin cancer, basal cell Left leg DVT Pancytopenia Hypertension Chronic kidney disease (CKD) stage G3a/A1, moderately decreased glomerular filtration rate (GFR) between 45-59 mL/min/1.73 square meter and albuminuria creatinine ratio less than 30 mg/g Right rotator cuff tear History of renal calculi Coronary artery disease Hypercholesterolemia BPH (benign prostatic hyperplasia) GERD (gastroesophageal reflux disease) Surgical History History of coronary artery stent placement History of repair of rotator cuff H/O basal cell carcinoma excision History of prostate biopsy History of hemorrhoidectomy Family History Father Past heart attack S/P triple vessel bypass Mother Memory loss Father Prostate cancer Maternal Uncle Prostate cancer Esophagus cancer Paternal Uncle Prostate cancer Sister Lung cancer Social History Household Members: Spouse, Family and Children Housing: House Are you a primary director of primary care to a significant other at home: No Do you presently have visiting nurse or other home services: No Alcohol intake: current Alcohol intake frequency: does not drink Alcohol type: wine Comment: 2x a year 1 glass Patient Tobacco Use Status: Never used Tobacco Tobacco use type: Cigarette e-Cigarette/Vaping Use: Never Used Second Hand Smoke Exposure: No service: No Current occupational status: retired Cognitive needs: No Hearing needs: No Vision needs: Yes Review of Systems Const Denies chills, Denies fatigue, Denies fever(s), Denies frequent falls, Denies weakness, Denies weight gain and Denies weight loss ENT Denies dizziness Card Denies chest pain, Denies leg edema, Denies lightheadedness, Denies palpitations, Denies dyspnea, Denies dyspnea on exertion, Denies orthopnea and Denies other (loss of consciousness) Resp Denies cough, Denies dyspnea and Denies dyspnea on exertion GI Denies hematochezia and Denies change in stool character Musc Denies abnormal gait, Denies muscle weakness, Denies numbness, Denies radiating pain into limb and Denies tingling Neuro Denies abnormal gait, Denies dizziness, Denies frequent falls, Denies numbness, Denies tingling and Denies weakness Endo Denies fatigue and Denies palpitations Physical Exam Vital Signs: Last Vital Signs Pulse 50 05/08/25 09:36 BP 110/72 05/08/25 09:36 BMI result Body Mass Index 22.4 Const General: cooperative, comfortable, no acute distress, alert, awake and well groomed Nutritional Appearance: thin Orientation/consciousness: patient oriented x3 Limitations: no limitations Neck Neck: Yes trachea midline and Yes no JVD Carotids: no bruits Resp Effort & Inspection: normal respiratory effort Auscultation: clear to auscultation bilaterally Cardio Jugular venous distension: no JVD Palpation: normal PMI Rate: regular rate Rhythm: regular rhythm Heart sounds: S1 normal heart sound present, S2 normal heart sound present, no click, no gallops, no murmurs and no rubs GI Auscultation: normal bowel sounds Skin General skin exam: no rashes or lesions noted Neuro General: patient oriented x3 and no focal motor deficits Extrem General: Yes no clubbing, cyanosis or edema Psych Appearance: grossly normal Office Procedures EKG Details: EKG shows sinus bradycardia with first-degree AV block with septal QS pattern otherwise no abnormalities [id number], Complete Assessment & Plan Assessment & Plan (1) Coronary artery disease: Comment: Stent placement 2003, asymptomatic, nuclear stress was negative CAD angiogram Dec 22 1016-echo February 2020 EF 60-65% Code(s): I25.10 - Atherosclerotic heart disease of [place] coronary artery without angina pectoris Category: Medical Qualifiers: Coronary Disease-Associated Artery/Lesion type: [place] artery [place] vs. transplanted heart: [place] heart Associated angina: without angina Qualified Code(s): I25.10 - Atherosclerotic heart disease of [place] coronary artery without angina pectoris Plan: CAD with multivessel stenting remotely. Currently not having any symptoms of concern. Remains very active and functional. His risk factors are well modified. Continue current high-intensity statin therapy with ezetimibe with well optimized LDL at 41 mg/dL. Blood pressure is currently well optimized. He is very active and encouraged to continue maintain activity level as tolerated. Advised to call me with any new symptoms. Management of coronary artery disease as well as pathophysiology was discussed again. He understands. Will follow up in the clinic in 1 year's time, sooner p.r.n.. Thank you for allowing me to partake in his care Coding Level of Care Code Est Pt Level 4 (64111) Complex EM visit Add On G2211 Diagnoses Coronary artery disease involving [place] coronary artery of [place] heart without angina pectoris I25.10 Coronary Disease-Associated Artery/Lesion type: [place] artery [place] vs. transplanted heart: [place] heart Associated angina: without angina CPT Codes EKG - CPT: 33862-[id number], Complete ([id number])
--- OUTSIDE RECORDS SUMMARY | 2025-05-08 12:06 | XMS_ITS | Clinical Summary ---
Author Organization [facility] Address [address] [facility] [address] [place] [address] Phone Care Team Providers Care Roundsman Name Role Phone Francisco Garcia MD Primary Care Provider [phone] Allergies Active Allergy Reactions Criticality Noted Date [...] patient's age to complete this topic Insurance [facility] Medicare [facility] Medicare Care Teams Roundsman Relationship Specialty Start Date End Date Francisco Garcia MD [facility] [address] [place], [place] PCP - General 09/02/20
--- OUTSIDE RECORDS SUMMARY | 2025-05-08 12:06 | XMS_ITS | Clinical Summary ---
Author Organization [facility] Address [address] [place] [address] [place] [address] Phone Care Team Providers Care Disease Intervention Specialist Name Role Phone Francisco Garcia MD Primary Care Provider [phone] Allergies Active Allergy Reactions Criticality Noted Date Comments Itraconazole Anaphylaxis High 12/09/2017 Medications aspirin 81 MG EC tablet Take 81 mg by mouth. Active atenolol (TENORMIN) 25 MG tablet Take 25 mg by mouth daily. Active finasteride (PROSCAR) 5 mg tablet Take 5 mg by mouth daily. Active omeprazole (PRILOSEC) 40 MG capsule Take 40 mg by mouth daily. Active atorvastatin (LIPITOR) 40 MG tablet Take 40 mg by mouth daily. Active ezetimibe (ZETIA) 10 mg tablet Take 1 tablet by mouth every morning. 10/19/2023 Active nitroglycerin (NITROSTAT) 0.4 MG SL tablet 10/26/2023 Active Active Problems Problem Noted Date Diagnosed Date Hypertension 06/09/2021 Hypertensive renal disease 06/04/2021 Stage 3 chronic kidney disease 06/04/2021 Benign prostatic hyperplasia 12/08/2017 Social History Tobacco Use Types Packs/Day Years Used Date Smoking Tobacco: Never Smokeless Tobacco: Never Tobacco Cessation:Counseling Given: Not Answered Alcohol Use Standard Drinks/Week Comments Never 0 (1 standard drink = 0.6 oz pur e alcohol) Education Answer Date Recorded Are you interested in more education? Not on penelope e 12/19/2022 Are you concerned about learning? Not on file 12/19/2022 No 12/19/2022 No 12/19/2022 Digital Access Answer Date Recorded No 01/17/2023 No 01/17/2023 Reliable internet access at home? Not on file 01/17/2023 Device with a working camera? Not on file Sex and Gender Information Value Date Recorded Sex Assigned at Not on file Legal Sex Male 10:04 AM EDT Gender Identity Not on file Sexual Orientation Not on file Last Filed Vital Signs Vital Sign Reading Time Taken Comments Blood Pressure 152/72 09/09/2024 11:31 AM EST Pulse 55 09/09/2024 11:31 AM EST Temperature 36.8 C (98.3 F) 09/09/2024 11:31 AM EST Respiratory Rate 18 09/09/2024 11:31 AM EST Oxygen Saturation 100% 09/09/2024 11:31 AM EST Inhaled Oxygen Concentration - - Weight 72.6 kg (160 lb) 02/08/2021 10:23 AM EDT Height 180.3 cm (5' 11 ) 02/08/2021 10:23 AM EDT Body Mass Index 22.32 02/08/2021 10:23 AM EDT Plan of Treatment Health Maintenance Due Date Last Done Comments LIPID PANEL 1945 DEPRESSION SCREENING 1957 RSV VACCINE (1 - 1-dose 75+ series) 2020 PNEUMOCOCCAL VACCINES (50+ years) (2 of 2 - PCV) 05/01/2022 05/01/2021 BLOOD PRESSURE 03/09/2025 09/09/2024 INFLUENZA VACCINE (#1) 2025 , 08/20/2023, 06/16/2022, Additional history exists COVID-19 VACCINE ( - 2024- season) 2025 01/17/2022, 10/14/2020, 09/23/2020 Adult Td,Tdap Booster 12/30/2033 12/31/2023 ZOSTER VACCINES Completed 06/04/2022, 08/08/2021 SMOKING STATUS SCREENING (Once After 26 Yrs) Completed 09/09/2024 HEPATITIS A VACCINES Aged Out No long er eligible based on patient's age to complete this topic HIB VACCINES Aged Out No longer eligi ble based on patient's age to complete this topic MENINGOCOCCAL VACCINES (ACWY) Aged Out No longer eligible based on patient's age to complete this topic MENINGOCOCCAL VACCINES (B) Aged Out N o longer eligible based on patient's age to complete this topic Medical Devices Not on file Insurance [facility] MEDICARE PART A & B [facility] MEDIC[facility] PART A & B Member Subscriber Plan / Payer ( fective 2014-Present) Name:Roverto Pan Member ID:[id number] Relation to Subscriber:Self Name:Roverto Pan Subscriber ID:[id number] Payer ID:[id number] Group ID:Not on file Type:Medicare Address: [employer] [address] [place] [address] [facility] MEDICARE PART A & B [facility] MEDICARE PART A & B [facility] MEDIC[facility] PART A & B [facility] MEDIC[facility] PART A & B [facility] MEDIC[facility] PART A & B [facility] MEDICARE PART A & B Member Subscriber Plan / Payer (Ef fective 2014-Present) Name:Roverto Pan Member ID:[id number] Relation to Subscriber:Self Name:Roverto Pan Subscriber ID:[id number] Payer ID:[id number] Group ID:Not on file Type:Medicare Address: [employer] [address] [place] [address] [facility] MEDICARE PART A & B Member Subscriber Plan / Payer (Ef fective 2014-Present) Name:Roverto Pan Member ID:[id number] Relation to Subscriber:Self Name:Roverto Pan Subscriber ID:[id number] Payer ID:[id number] Group ID:Not on file Type:Medicare Address: [employer] [address] [place] [address] Care Teams Disease Intervention Specialist Relationship Specialty Start Date End Date Francisco Garcia MD [address] [place] [address] [address] [place] [address] PCP - General Internal Medicine 02/08/21 Additional Source Comments The information contained in this document represents components of the legal health record. It is not the complete legal health record.[facility]
--- OUTSIDE RECORDS SUMMARY | 2025-05-08 12:06 | XMS_ITS | Patient Health Record ---
Author Organization [facility] Address [address] [place] [address] Care Team Providers Care Dianeticist Name Role Phone Francisco Garcia Primary Care Provider Dutch Byrd Unavailable [phone] Allergies Allergen (clinical drug ingredient) Drug/Non Drug [...] No Encounters Encounter Location Date Provider Diagnosis [facility] [address] [place] [address] 06/19/2024 Dutch Geiger Plan Of Treatment Pending Test Test Name Order Date X ray : Foot, left 3V 12/03/2022 Insurance Providers Payer Name Payer Address Payer Phone Subscriber Number Group Number Insured Name Patient Relationship to Insured Coverage Start Date Coverage End Date Medicare [employer] [address] [place] [address] [id number] Roverto Pan Self - patient is the insured [facility] [address] [place] [address] [id number] Roverto Pan Self - patient is the insured Medical (General) History Medical History History ICD Code Cataracts covid-19 Heart disease Reflux ( GERD) chronic sinusitis Chicken pox Measles Vascular grafts Surgical History Surgery Date(Month/Year) rotator cuff 2018
--- OUTSIDE RECORDS SUMMARY | 2025-05-08 12:06 | XMS_ITS | Patient Health Record ---
Author Organization [facility] Address [address] [place] [address] Care Team Providers Care Paint Roller Covermaker Name Role Phone Po Francisco [place] Primary Care Provider UnavailStar Rodriguez Unavailable [phone] Montrell Cerda Unavailable Unavailable Allergies Allergen (clinical [...] Problem Status W/U Status Risk Notes Problem [id number] Colon cancer screening (Z12.11) Active confirmed Problem 48773751 Change in bowel habits (R19.4) Active confirmed Problem 990162591 Gastroesophageal reflux disease without esophagitis (K21.9) Active confirmed Problem 81495776 Esophageal spasm (K22.4) Active confirmed Problem Diverticulosis of colon (791877152) Diverticulosis of colon (K57.30) Active confirmed Encounters Encounter Location Date Provider Diagnosis [facility] [address] [place] [address] 03/26/2025 Star Dockery Plan Of Treatment Pending Test Test Name Order Date CELIAC PANEL #10 11/24/2022 Future Test Test Name Order Date COLONOSCOPY 07/20/2012 COLONOSCOPY 11/24/2022 Insurance Providers Payer Name Payer Address Payer Phone Subscriber Number Group Number Insured Name Patient Relationship to Insured Coverage Start Date Coverage End Date MEDICARE OF [place] [address] [place] [address] [id number] MARY CARMEN KIEL Self - patient is the insured [facility] [address] [place], [place] [id number] [phone] [id number] MARY CARMEN KIEL Self - patient is the insured Medical [...]
--- OUTSIDE RECORDS SUMMARY | 2025-05-08 12:06 | XMS_ITS | Clinical Summary ---
Author Organization [facility] it Address [address] [place] [address] Care Team Providers Care Payroll Administrator Name Role Phone Unavailable Primary Care Provider [...] series) 2020 Cholesterol Screening (Lipid Panel) 07/26/2022 Falls Risk Assessment 07/26/2022 Social Influencers of Health Screening 07/26/2022 Depression Screening 08/23/2024 COVID-19 Vaccine ( - 2024- season) 2025 10/14/2020, 09/23/2020 Influenza Vaccine (#1) 2025 , 07/18/2019, 07/12/2018, Additional history exists Hypertension/CHF/CAD Annual BMP Blood Test 04/26/2025 HIB Vaccines Aged Out No longer eligi [...]
== END 2025-05-08 10:02 | disposition home or self-care (01) ==
LOC: HO.HCS 09:33
PROVIDERS: PCP Internal Medicine; Visit Provider Internal Medicine Cardiovascular Disease
DX: I25.10 Atherosclerotic heart disease of native coronary artery without angina pectoris (principal)
CPT/HCPCS: 93010; 99214; G2211

== ENCOUNTER → 2025-05-08 09:32 | Outpatient (BNVA) | payer MEDICARE, BC, SELFPAY | PROVIDERS: PCP Internal Medicine; Visit Provider Internal Medicine Cardiovascular Disease | DX: I25.10 Atherosclerotic heart disease of native coronary artery without angina pectoris (principal) | CPT/HCPCS: 93005; 99212 ==

== ENCOUNTER 2025-05-15 09:41 | Outpatient (AMB) | payer MEDICARE, BC, SELFPAY ==
--- OUTSIDE RECORDS SUMMARY | 2025-04-24 09:20 | XMS_ITS ---
Author Organization [facility] Address [address] [place] [address] Care Team Providers Care Pr Internship Name Role Phone Francisco Garcia MD Primary Care Provider Star Blackman [phone] Montrell Cerda Unavailable Unavailable REASON FOR VISIT Patient presents today for diarrhea Encounters Encounter Location Date Provider Diagnosis [facility] [address] [place] [address] 04/24/2025 Star Dockery Plan Of Treatment No Information Progress Notes * KIEL LENTZDOB:1945 (80 yo M)Acc No.[id number]:04/24/2025 Progress Notes Patient: KIEL LOYD Provider: Yasir Dockery MD :1945 A ge:80 Y S ex:Male Date:04/24/2025 Address:[address] [facility] [id number] Pcp:Francisco Garcia MD Subjective: * Chief Complaints: * 1 . Patient presents today for diarrhea. * Medical History: Objective: * Vitals: Assessment: Plan: * Treatment: * * The named appointment provid er may or may not be the originator of this progress note, and it is not deemed complete until electronically signed by the appointment provider. Sign off status: Pending * Provider: Yasir Dockery MD Date: 0 04/24/2025 Generated for Thomas smallwood/Jossy/eTransmitting on: 0 05/15/2025 11:32 AM EDT
[2025-05-15 10:03] VITALS: BP 130/72; PULSE 58; O2SAT 98; BMI 22.3
--- NOTE | 2025-05-15 10:03 | A.OFFPC_ITS ---
Vital Signs 05/15/25 10:03 Height 5 ft 11 in Weight 160 lb BMI 22.3 BP 130/72 Blood Pressure Location Lt brachial Position Sitting Pulse 58 Pulse Source Pulse Oximeter Pulse Oximetry (%) 98 Oxygen Delivery Method Room Air Intake Visit Reasons: 3 month f/u Allergies itraconazole (ITRACONAZOLE) Allergy (Severe, Verified 05/15/25 10:03) SHORTNESS OF BREATH, edema, edema Medication List - Last Reconciled 05/15/25 by Francisco Garcia MD aspirin 81 mg PO DAILY atenolol 25 mg PO DAILY atorvastatin (Lipitor) 40 mg PO DAILY ezetimibe 10 mg PO DAILY famotidine (Pepcid) 20 mg PO BEDTIME finasteride (Proscar) 5 mg PO DAILY [INNOVIX lab probiotics PO .QD] mometasone 50 mcg/actuation (Nasonex) 2 sprays intranasal DAILY multivitamin 1 tab PO DAILY nitroglycerin 0.4 mg sublingual Q5M omeprazole 40 mg PO DAILY Tobacco use date assessed: 01/05/25 Fall risk assessment: No Falls in past year Last assessed Fall Risk: 05/15/25 Dental Screening Dental Screen Date: 01/05/25 [facility] Medical History Skin cancer, basal cell Left leg DVT Pancytopenia Hypertension Chronic kidney disease (CKD) stage G3a/A1, moderately decreased glomerular filtration rate (GFR) between 45-59 mL/min/1.73 square meter and albuminuria creatinine ratio less than 30 mg/g Right rotator cuff tear History of renal calculi Coronary artery disease Hypercholesterolemia BPH (benign prostatic hyperplasia) GERD (gastroesophageal reflux disease) Surgical History History of coronary artery stent placement History of repair of rotator cuff H/O basal cell carcinoma excision History of prostate biopsy History of hemorrhoidectomy Family History Father Past heart attack S/P triple vessel bypass Mother Memory loss Father Prostate cancer Maternal Uncle Prostate cancer Esophagus cancer Paternal Uncle Prostate cancer Sister Lung cancer Social History Household Members: Spouse, Family and Children Housing: House Are you a primary vocational childcare teacher to a significant other at home: No Do you presently have visiting nurse or other home services: No Alcohol intake: current Alcohol intake frequency: does not drink Alcohol type: wine Comment: 2x a year 1 glass Patient Tobacco Use Status: Never used Tobacco Tobacco use type: Cigarette e-Cigarette/Vaping Use: Never Used Second Hand Smoke Exposure: No service: No Current occupational status: retired Cognitive needs: No Hearing needs: No Vision needs: Yes Questionnaire Thrive Questionnaire Date Thrive assessed: 01/05/25 I am a: Patient What is your living situation today?: I have a steady place to live Within the past 12 months, did the food you bought not last and you didn't have the money to get more?: Often true Within the past 12 months, did you worry whether your food would run out before you got money to buy more?: Never true Do you have trouble paying for medicines?: No Do you have trouble getting transportation to medical appointments?: No Do you have trouble paying your heating and electricity bill?: No Do you have trouble taking care of your child, family member or friend?: No Do you have trouble with day-to-day activities such as bathing, preparing meals, shopping, managing finances, etc.?: No Are you currently unemployed and looking for a job?: No Are you interested in more education?: No THRIVE Score: 1 OMAR-7 AMB Questionnaire OMAR-7 Date OMAR - 7 assessed: 01/05/25 Source: Developed by Drs. Star Palmer, Alyssia Muniz, Abe Mai and colleagues, with an educational sal from [employer]. Physical exam (Primary Care) Vital Signs: Last Vital Signs Pulse 58 05/15/25 10:03 BP 130/72 05/15/25 10:03 Pulse Ox 98 05/15/25 10:03 Oxygen Delivery Method Room Air 05/15/25 10:03 BMI result Body Mass Index 22.3 Tobacco/Smoking Status: Tobacco use Status Tobacco use date assessed 01/05/25 05/15/25 10:07 Patient Tobacco Use Status Never used Tobacco 05/15/25 10:07 Tobacco use type Cigarette 05/15/25 10:07 e-Cigarette/Vaping Use Never Used 05/15/25 10:07 Thrive Assessment: Date of Thrive Assessment Date Thrive assessed 01/05/25 05/15/25 10:07 Const General: alert; No acute distress Eyes Conjunctivae: conjunctivae normal Resp Auscultation: clear to auscultation bilaterally Cardio Rate: regular rate Rhythm: regular rhythm GI Inspection: Yes normal to inspection Extrem Other: 2 ++ LE edema General: Yes normal to inspection and Yes edema Coding Level of Care Code Est Pt Level 4 (16740) Complex EM visit Add On G2211 Diagnoses Coronary artery disease involving [place] coronary artery of [place] heart without angina pectoris I25.10 Associated angina: without angina Coronary Disease-Associated Artery/Lesion type: [place] artery [place] vs. transplanted heart: [place] heart Essential hypertension I10 Hypertension type: essential hypertension Hypercholesterolemia E78.00 Gastroesophageal reflux disease without esophagitis K21.9 Esophagitis presence: without esophagitis Chronic kidney disease (CKD) stage G3a/A1, moderately decreased glomerular filtration rate (GFR) between 45-59 mL/min/1.73 square meter and albuminuria creatinine ratio less than 30 mg/g N18.31 Benign prostatic hyperplasia with urinary frequency N40.1; R35.0 Lower urinary tract symptom detail: urinary frequency Lower urinary tract symptom presence: symptoms present Anemia, chronic disease D63.8 Assessment & Plan Assessment & Plan (1) Coronary artery disease: Comment: Stent placement 2003, asymptomatic, nuclear stress was negative CAD angiogram Dec 22 1016-echo February 2020 EF 60-65% Code(s): I25.10 - Atherosclerotic heart disease of [place] coronary artery without angina pectoris Category: Medical Qualifiers: Associated angina: without angina Coronary Disease-Associated Artery/Lesion type: [place] artery [place] vs. transplanted heart: [place] heart Qualified Code(s): I25.10 - Atherosclerotic heart disease of [place] coronary artery without angina pectoris Plan: Control the cholesterol, weight, blood pressure, continue with aspirin 81 mg once a day (2) Hypertension: Code(s): I10 - Essential (primary) hypertension Category: Medical Qualifiers: Hypertension type: essential hypertension Qualified Code(s): I10 - Essential (primary) hypertension Plan: Continue with blood pressure medication. Decrease salt intake and exercise on atenolol and follows up with Cardiology (3) Hypercholesterolemia: Code(s): E78.00 - Pure hypercholesterolemia, unspecified Category: Medical Plan: Avoid fried foods, chicken skin, eggs, butter margarine, pastries and meat. Be it pork or beef they have a lot of cholesterol LDL goal of less than 70 and triglyceride of less than 150 on Zetia and atorvastatin 40 (4) GERD (gastroesophageal reflux disease): Code(s): K21.9 - Gastro-esophageal reflux disease without esophagitis Category: Medical Qualifiers: Esophagitis presence: without esophagitis Qualified Code(s): K21.9 - Gastro-esophageal reflux disease without esophagitis Plan: Avoid the foods that causes that usually spicy foods, tomato products, juices, coffee, soda and foods that your sensitive to. After eating do not lie down, allow 3-4 hours before in lie down. And keep the head of bed above 30 degrees to avoid the acid from going up. (5) Chronic kidney disease (CKD) stage G3a/A1, moderately decreased glomerular filtration rate (GFR) between 45-59 mL/min/1.73 square meter and albuminuria creatinine ratio less than 30 mg/g: Code(s): N18.31 - Chronic kidney disease, stage 3a Category: Medical Plan: Stable and continue to follow-up with Nephrology has recommended SGLT2 (6) BPH (benign prostatic hyperplasia): Code(s): N40.0 - Benign prostatic hyperplasia without lower urinary tract symptoms Category: Medical Qualifiers: Lower urinary tract symptom detail: urinary frequency Lower urinary tract symptom presence: symptoms present Qualified Code(s): N40.1 - Benign prostatic hyperplasia with lower urinary tract symptoms; R35.0 - Frequency of micturition Plan: Continue with Proscar (7) Anemia, chronic disease: Code(s): D63.8 - Anemia in other chronic diseases classified elsewhere Category: Medical Plan: Continue to monitor Plan History of Present Illness The patient is an 80-year-old male presenting for a follow-up visit. The patient has a history of gastroesophageal reflux disease (GERD), which has been managed with omeprazole and Pepcid at night. He is considering discontin uing omeprazole as he approaches the end of his current refill. The patient has benign prostatic hyperplasia (BPH) and continues to take Proscar as part of his management plan. He has a history of hypercholesterolemia and is currently on Zetia and atorvastatin 40 mg to maintain his LDL cholesterol below 70 mg/dL and triglycerides below 150 mg/dL. The patient has coronary artery disease and follows up regularly with cardiology. His condition is stable, and he continues to take aspirin 81 mg daily. Chronic kidney disease is present, classified as stage G3A/A1, with stable renal function and a creatinine level of 1.29 mg/dL. Nephrology has recommended considering SGLT2 inhibitors for kidney protection. The patient has a history of hypertension, managed with atenolol, and his blood pressure is stable. Chronic anemia is noted, with the last blood work showing anemia of chronic disease with hemoglobin at 12.7 g/dL and hematocrit at 38%. The patient experienced a deep vein thrombosis (DVT) in 2020, which has been managed appropriately. Cervical degenerative disc disease is part of his medical history, contributing to his overall health management. The patient has actinic keratosis and tinea pedis, for which he was prescribed ciclopirox. He has received a shingles vaccination, having had shingles twice in the past. The patient engages in regular exercise, attending gym classes three times a week, and reports no shortness of breath or palpitations. He has made dietary changes, including the use of probiotics, which have improved his bowel movements. Health Maintenance - Colon cancer screening completed in 2022 - Shingles vaccination administered - Regular exercise: Attends gym classes three times a week - Dietary changes: Use of probiotics to improve bowel movements Social History - Exercise: Attends gym classes three times a week - Dietary habits: Use of probiotics to improve bowel movements Review of Systems - Respiratory: Denies shortness of breath - Cardiovascular: Denies palpitations - Gastrointestinal: Reports improved bowel movements with probiotics Physical Exam - Respiratory: No pain on deep inspiration - Cardiovascular: No shortness of breath, participates in regular exercise Results - Labs: Hemoglobin 12.7 g/dL, Hematocrit 38%, Creatinine 1.29 mg/dL, GFR 54, LDL 42 mg/dL - Labs: Electrolytes normal, Liver enzymes elevated Plan Patient was informed and verbally consented to the use of an ambient scribe for clinic note documentation during this visit. 1. Gastroesophageal Reflux Disease (Gerd) The patient is currently managing GERD with omeprazole and Pepcid at night. He plans to attempt discontinuation of omeprazole as he nears the end of his refill, while continuing Pepcid. 2. Benign Prostatic Hyperplasia (Bph) The patient continues to manage BPH with Proscar. 3. Hypercholesterolemia The patient is on Zetia and atorvastatin 40 mg to maintain LDL cholesterol below 70 mg/dL and triglycerides below 150 mg/dL. 4. Coronary Artery Disease The patient follows up with cardiology and continues aspirin 81 mg daily for coronary artery disease management. 5. Chronic Kidney Disease The patient has stable chronic kidney disease stage G3A/A1 with creatinine at 1.29 mg/dL. Nephrology has recommended considering SGLT2 inhibitors for renal protection. 6. Hypertension The patient's hypertension is managed with atenolol, and his blood pressure remains stable. 7. Chronic Anemia The patient has anemia of chronic disease with hemoglobin at 12.7 g/dL and hematocrit at 38%. 8. Deep Vein Thrombosis (Dvt) The patient experienced a DVT in 2020, which has been managed appropriately. 9. Cervical Degenerative Disc Disease The patient has a history of cervical degenerative disc disease, contributing to his overall health management. 10. Actinic Keratosis The patient has actinic keratosis and was prescribed ciclopirox for management. 11. Tinea Pedis The patient was diagnosed with tinea pedis and prescribed ciclopirox. 12. Anemia Of Chronic Disease The patient has anemia of chronic disease with hemoglobin at 12.7 g/dL and hematocrit at 38%. 13. Thrombocytopenia The patient has mild thrombocytopenia noted in recent blood work. Discussion Notes During the visit, we discussed the management of the patient's chronic condition s, including GERD, BPH, hypercholesterolemia, coronary artery disease, and chronic kidney disease. We reviewed the potential benefits of SGLT2 inhibitors for kidney protection and the patient's current medication regimen. The patient was advised to continue regular follow-ups with cardiology and nephrology, and to consider discontinuing omeprazole while monitoring symptoms. Patient Instructions - Continue current medications as prescribed. - Consider discontinuing omeprazole and monitor for any changes in symptoms. - Follow up with cardiology and nephrology as scheduled. - Maintain regular exercise routine and dietary changes. - Schedule blood work in three months to monitor kidney function. Orders: Orders Complete Blood Count Auto Diff Today N18.31 - Chronic kidney disease, stage 3a Free T4 (Free Thyroxine) Today N18.31 - Chronic kidney disease, stage 3a Vitamin B12 and Folate Today N18.31 - Chronic kidney disease, stage 3a Magnesium Today N18.31 - Chronic kidney disease, stage 3a Comprehensive Met. Panel Today N18.31 - Chronic kidney disease, stage 3a Lipid Panel Today E78.00 - Pure hypercholesterolemia, unspecified, N18.31 - Chronic kidney disease, stage 3a Thyroid Stimulating Hormone Today N18.31 - Chronic kidney disease, stage 3a
--- OUTSIDE RECORDS SUMMARY | 2025-05-15 11:33 | XMS_ITS | Patient Health Record ---
Author Organization [facility] Address [address] [place] [address] Care Team Providers Care Marketing Specialist Name Role Phone Francisco Garcia Primary Care Provider Dutch Byrd Unavailable [phone] Allergies Allergen (clinical drug ingredient) Drug/Non Drug [...] No Encounters Encounter Location Date Provider Diagnosis [facility] [address] [place] [address] 06/19/2024 Dutch Geiger Plan Of Treatment Pending Test Test Name Order Date X ray : Foot, left 3V 12/03/2022 Insurance Providers Payer Name Payer Address Payer Phone Subscriber Number Group Number Insured Name Patient Relationship to Insured Coverage Start Date Coverage End Date Medicare National [employer] [address] [facility] [place] [address] [id number] Roverto Pan Self - patient is the insured [facility] [address] [place] [address] [id number] Roverto Pan Self - patient is the insured Medical (General) History Medical History History ICD Code Cataracts covid-19 Heart disease Reflux ( GERD) chronic sinusitis Chicken pox Measles Vascular grafts Surgical History Surgery Date(Month/Year) rotator cuff 2018
--- OUTSIDE RECORDS SUMMARY | 2025-05-15 11:33 | XMS_ITS | Clinical Summary ---
Author Organization [facility] Address [address] [facility] [address] [place] [address] Phone Care Team Providers Care Fur Cutter Name Role Phone Francisco Garcia MD Primary Care Provider Allergies Active Allergy Reactions Criticality Noted Date [...] patient's age to complete this topic Insurance [facility] Medicare [facility] Medicare Care Teams Fur Cutter Relationship Specialty Start Date End Date Francisco Garcia MD [facility] [address] [place], [place] PCP - General 09/02/20
--- OUTSIDE RECORDS SUMMARY | 2025-05-15 11:33 | XMS_ITS | Patient Health Record ---
Author Organization [facility] Address [address] [place] [address] Care Team Providers Care Stock Puller Name Role Phone Po Francisco [place] Primary Care Provider UnavailStar Rodriguez Unavailable [phone] Montrell Cerda Unavailable Unavailable Allergies Allergen (clinical [...] Problem Status W/U Status Risk Notes Problem [id number] Colon cancer screening (Z12.11) Active confirmed Problem 65339450 Change in bowel habits (R19.4) Active confirmed Problem 495320773 Gastroesophageal reflux disease without esophagitis (K21.9) Active confirmed Problem 21572671 Esophageal spasm (K22.4) Active confirmed Problem Diverticulosis of colon (103200382) Diverticulosis of colon (K57.30) Active confirmed Encounters Encounter Location Date Provider Diagnosis [facility] [address] [place] [address] 03/26/2025 Star Dockery Plan Of Treatment Pending Test Test Name Order Date CELIAC PANEL #10 11/24/2022 Future Test Test Name Order Date COLONOSCOPY 07/20/2012 COLONOSCOPY 11/24/2022 Insurance Providers Payer Name Payer Address Payer Phone Subscriber Number Group Number Insured Name Patient Relationship to Insured Coverage Start Date Coverage End Date MEDICARE [place] [address] [place] [address] [phone] [id number] MARY CARMEN KIEL Self - patient is the insured [facility] [address] [place], [place] [id number] MARY CARMEN KIEL Self - patient is the insured Medical (General) History Medical History History ICD Code Esophageal reflux-EGD in 08/2004-negative Diverticulosis Anemia-followed by Dr. Cerda Mild leukopenia-followed by Dr. Cerda CAD-stent placed in 2003-no CA; 2 stents in 2012; 12/2016 had negative cardiac cath with Dr. Khanna BPH Denies CA,DM,CVA,Lung disease,renal dise ase Neg. colonoscopy in 06/2002 Microscopic hematuria Colonoscopy in 08/2012--1 tiny hyperplast ic polyp removed Surgical History Surgery Date(Month/Year) Hemorrhoid surgery rotator cuff surgery right sep 2016 cardiac stents x3
--- OUTSIDE RECORDS SUMMARY | 2025-05-15 11:33 | XMS_ITS | Clinical Summary ---
Author Organization [facility] [facility] it Address [address] [place] [address] Care Team Providers Care Director Of Product Management Name Role Phone Unavailable Primary Care Provider [...]
--- OUTSIDE RECORDS SUMMARY | 2025-05-15 11:33 | XMS_ITS | Clinical Summary ---
Author Organization [facility] Address [address] [place] [address] [place] [address] Phone Care Team Providers Care Evaporator Operator Name Role Phone Francisco Garcia MD Primary Care Provider [phone] Allergies Active Allergy Reactions Criticality Noted Date [...] topic Medical Devices Not on file Insurance [facility] MEDICARE PART A & B [facility] MEDICARE PART A & B [facility] MEDICARE [facility] A & B [facility] MEDICARE [facility] A & B [facility] MEDICARE PART A & B [facility] MEDICARE [facility] A & B [facility] MEDICARE PART A & B [facility] MEDICARE PART A & B [facility] MEDICARE PART A & B Care Teams Evaporator Operator Relationship Specialty Start Date End Date Francisco Garcia MD [address] [place] [address] Drive [address] [place] [address] PCP - General Internal Medicine 02/08/21 Additional Source Comments The information contained in this document represents components of the legal health record. It is not the complete legal health record.[facility]
--- OUTSIDE RECORDS SUMMARY | 2025-05-15 11:33 | XMS_ITS | Clinical Summary ---
Author Organization [facility] Address [address] [place] [address] Care Team Providers Care Prize Fighter Name Role Phone Francisco Garcia MD Primary [...] Health Maintenance Due Date Last Done Comments COVID-19 Vaccine (#1) 1945 Depression Screening 1957 [...] age to complete this topic Care Teams Prize Fighter Relationship Specialty Start Date End Date Po, Francisco Tucker MD [address] [facility] [address] [facility] [place] [address] PCP - General Internal Medicine 12/07/17
== END 2025-05-15 10:39 | disposition home or self-care (01) ==
LOC: HO.HMCH 09:42
PROVIDERS: PCP Internal Medicine; Visit Provider Internal Medicine
DX: I12.9 Hypertensive chronic kidney disease with stage 1 through stage 4 chronic kidney disease, or unspecified chronic kidney disease (principal); N18.31 Chronic kidney disease, stage 3a; I25.10 Atherosclerotic heart disease of native coronary artery without angina pectoris; E78.00 Pure hypercholesterolemia, unspecified; K21.9 Gastro-esophageal reflux disease without esophagitis; N40.1 Benign prostatic hyperplasia with lower urinary tract symptoms; R35.0 Frequency of micturition; D63.8 Anemia in other chronic diseases classified elsewhere

== ENCOUNTER → 2025-05-15 09:41 | Outpatient (BNVA) | payer MEDICARE, BC, SELFPAY | PROVIDERS: PCP Internal Medicine; Visit Provider Internal Medicine | DX: I25.10 Atherosclerotic heart disease of native coronary artery without angina pectoris (principal); I12.9 Hypertensive chronic kidney disease with stage 1 through stage 4 chronic kidney disease, or unspecified chronic kidney disease; N18.31 Chronic kidney disease, stage 3a; D63.8 Anemia in other chronic diseases classified elsewhere; E78.00 Pure hypercholesterolemia, unspecified; K21.9 Gastro-esophageal reflux disease without esophagitis; N40.1 Benign prostatic hyperplasia with lower urinary tract symptoms; R35.0 Frequency of micturition | CPT/HCPCS: 99212 ==

== ENCOUNTER 2025-07-17 10:56 | Outpatient (REF) | payer MEDICARE, BC, SELFPAY ==
[2025-07-17 11:11] LABS: MANUAL DIFF FLAG NO
[2025-07-17 11:40] LABS: Hematocrit 37.7 % (42.0-52.0); Hemoglobin 12.4 g/dl (14.0-18.0); Imm Gran Abs Auto 0.01 X10*3/uL (0.00-0.03); Imm Gran Pct Auto 0.2 % (0.0-0.4); Lymphocytes Absolute Auto 1.2 X10*3/uL (1.2-4.9); Mean Corpuscular HGB Conc 32.9 g/dl (31.0-36.0); Mean Corpuscular Hemoglobin 31.6 pg (27.0-33.0); Mean Corpuscular Volume 95.9 fL (80.0-98.0); NRBC Abs Auto 0.000 X10*3/uL (0.0-0.012); NRBC Pct Auto 0.0 /100WBC (0.0-0.2); Platelet Count 160 X10*3/uL (160-400); Red Blood Count 3.93 X10*6/uL (4.60-5.80); White Blood Count 5.3 X10*3/uL (4.8-10.8)
[2025-07-17 12:39] LABS: Alanine Aminotransferase 36 U/L (0-40); Albumin Level 4.1 g/dL (3.5-5.0); Alkaline Phosphatase 107 U/L (39-117); Anion Gap 9 (12-20); Aspartate Amino Transferase 51 U/L (5-37); Blood Urea Nitrogen 26 mg/dL (9-16); Calcium 9.2 mg/dL (8.4-10.2); Carbon Dioxide 30 mmol/L (22-29); Chloride 107 mmol/L (96-108); Cholesterol 128 mg/dL (<200); Estimated Glomerular Filt Rate 46; HDL Cholesterol 77 mg/dL (>40); Magnesium 2.1 mg/dL (1.6-2.6); Potassium 4.4 mmol/L (3.3-5.1); Sodium 142 mmol/L (135-145); Total Protein 6.3 g/dL (6.5-8.0); Triglycerides 75 mg/dL (<150)
[2025-07-17 12:48] LABS: Prostate Specific Antigen 0.88 ng/mL (<0.05-4.0)
[2025-07-17 12:59] LABS: Free T4 (Free Thyroxine) 0.91 ng/dL (0.71-1.85); Thyroid Stimulating Hormone 2.53 uIU/mL (0.32-4.0)
[2025-07-17 13:04] LABS: Folate 14.5 ng/mL (> or = 4.0); Vitamin B12 719 pg/mL (200-900)
--- OUTSIDE RECORDS SUMMARY | 2025-07-17 14:21 | XMS_ITS | Patient Health Record ---
Author Organization [facility] Address [address] [facility] [place] [address] Care Team Providers Care Kettle Girl Name Role Phone Francisco Garcia Primary Care Provider Dutch Francois Unavailable [phone] Allergies Allergen (clinical drug ingredient) Drug/Non Drug [...] Are you an other tobacco user? No Plan Of Treatment Pending Test Test Name Order Date X ray : Foot, left 3V 12/03/2022 Insurance Providers Payer Name Payer Address Payer Phone Subscriber Number Group Number Insured Name Patient Relationship to Insured Coverage Start Date Coverage End Date Medicare National Gov[employer] [address] [place] [address] [id number] Roverto Self - patient is the insured [facility] [address] [place] [address] [id number] Roverto Pan Self - patient is the insured Medical (General) History Medical History History ICD Code Cataracts covid-19 Heart disease Reflux ( GERD) chronic sinusitis Chicken pox Measles Vascular grafts Surgical History Surgery Date(Month/Year) rotator cuff 2018
--- OUTSIDE RECORDS SUMMARY | 2025-07-17 14:21 | XMS_ITS | Clinical Summary ---
Author Organization [facility] Address [address] [facility] [address] [place] [address] Phone Care Team Providers Care Speedometer Mechanic Name Role Phone Francisco Garcia MD Primary Care Provider [phone] Allergies Active Allergy Reactions Criticality Noted Date [...] patient's age to complete this topic Insurance [facility] Medicare [facility] Medicare Care Teams Speedometer Mechanic Relationship Specialty Start Date End Date Francisco Garcia MD [facility] [address] [place], [place] PCP - General 09/02/20
--- OUTSIDE RECORDS SUMMARY | 2025-07-17 14:21 | XMS_ITS | Clinical Summary ---
Author Organization [facility] [employer] [facility] it Address [address] [place] [address] Care Team Providers Care Distributed Energy Systems Consultant Name Role Phone Unavailable Primary Care Provider [...]
--- OUTSIDE RECORDS SUMMARY | 2025-07-17 14:22 | XMS_ITS | Clinical Summary ---
Author Organization [facility] Address [address] [place] [address] [place] [address] Phone Care Team Providers Care Pull Out Operator Name Role Phone Francisco Garcia MD Primary Care Provider [phone] Allergies Active Allergy Reactions Criticality Noted Date [...] topic Medical Devices Not on file Insurance [facility] MEDICARE PART A & B [facility] MEDIC[facility] PART A & B [facility] MEDIC[facility] PART A & B [facility]IC[facility] PART A & B [facility] MEDICARE PART A & B [facility] MEDICARE PART A & B [facility] MEDICARE PART A & B [facility] MEDICARE PART A & B [facility] Address: [address] [place] [address] MEDICARE PART A & B Care Teams Pull Out Operator Relationship Specialty Start Date End Date Francisco Garcia MD [address] [place] [address] Drive [address] [place] [address] PCP - General Internal Medicine 02/08/21 Additional Source Comments The information contained in this document represents components of the legal health record. It is not the complete legal health record.[facility]
--- OUTSIDE RECORDS SUMMARY | 2025-07-17 14:22 | XMS_ITS | Clinical Summary ---
Author Organization [facility] Address [address] [place] [address] Care Team Providers Care Scrap Charger Name Role Phone Francisco Garcia MD Primary Care Provider [phone] Allergies Active Allergy Reactions Criticality Noted Date [...] age to complete this topic Care Teams Scrap Charger Relationship Specialty Start Date End Date Po, Francisco Tucker MD [address] [facility] [place] [address] PCP - General Internal Medicine 12/07/17
--- OUTSIDE RECORDS SUMMARY | 2025-07-17 14:22 | XMS_ITS | Patient Health Record ---
Author Organization [facility] Address [address] [place] [address] Care Team Providers Care Relay Tester Helper Name Role Phone Po Francisco STALLWORTH Primary Care Provider UnavailStar Rodriguez Unavailable [phone] Montrell Cerda Unavailable Unavailable Allergies Allergen (clinical drug ingredient) Drug/Non Drug Allergy documented on EMR Reaction Allergy Type Onset Date Status itraconazole Itraconazole Unknown Drug Allergy A ctive Reason For Referral No Information Medications Medication SIG (Take, Route, Frequency, Duration) Notes Start Date End Date Status Probiotic Active Multivitamin Active Fish Oil Active Finasteride 5 MG Tablet Oral; Duration: 90 Active Atorvastatin Calcium 40 MG Tablet Oral; Duration: 90 Active Omeprazole 40 MG Capsule Delayed Release Take one Oral Once a day Active Aspirin Adult Low Dose 81 MG Tablet Delayed Release 1 tablet Orally Once a day Active Zetia 10 MG Tablet 1 tablet Orally Once a day; Duration: 30 day(s) Active Atenolol 25 MG Tablet 1 tablet Orally On ce a day Active Immunizations Vaccine Route Administration Date Status Comme nts Influenza Unknown 04/23/2016 Administered Social History Social History Additional Details Category Social Info Options Details Miscellaneous: Marital status: 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 alcohol Nonsmoker; no sig. alcohol Nonsmoker; no sig. alcohol Problems Problem Type SNOMED Code ICD Code Onset Dates Problem Status W/U Status Risk Notes Problem Colon cancer screening (779065419) Colon cancer screening (Z12.11) Active confirmed Problem Change in bowel habit (39463282) Change in bowel habits (R19.4) Active confirmed Problem Gastroesophageal reflux disease without esophagitis (581905321) Gastroesophageal reflux disease without esophagitis (K21.9) Active confirmed Problem Esophageal spasm (72518256) Esophageal spasm (K22.4) Active confirmed Problem Diverticulosis of colon (059834140) Diverticulosis of colon (K57.30) Active confirmed Encounters Encounter Location Date Provider Diagnosis [facility] [address] [place] [address] 03/26/2025 Star Dockery Plan Of Treatment Pending Test Test Name Order Date CELIAC PANEL #10 11/24/2022 Future Test Test Name Order Date COLONOSCOPY 07/20/2012 COLONOSCOPY 11/24/2022 Insurance Providers Payer Name Payer Address Payer Phone Subscriber Number Group Number Insured Name Patient Relationship to Insured Coverage Start Date Coverage End Date MEDICARE OF [place] [address] [place] [address] [phone] [id number] KIEL LENTZ Self - patient is the insured [facility] [address] [place], [place] [id number] [phone] [id number] KIEL LENTZ Self - patient is the insured Medical (General) History Medical History History ICD Code Esophageal reflux-EGD in 08/2004-negative Diverticulosis Anemia-followed by Dr. Cerda Mild leukopenia-followed by Dr. Cerda CAD-stent placed in 2003-no [place]; 2 stents in 2012; 12/2016 had negative cardiac cath with Dr. Khanna BPH Denies [place],DM,CVA,Lung disease,renal dise ase Neg. colonoscopy in 06/2002 Microscopic hematuria Colonoscopy in 08/2012--1 tiny hyperplast ic polyp removed Surgical History Surgery Date(Month/Year) Hemorrhoid surgery rotator cuff surgery right sep 2016 cardiac stents x3
== END 2025-07-17 10:57 | disposition home or self-care (01) ==
LOC: HO.LAB 10:56
PROVIDERS: Absent Provider Internal Medicine; PCP Internal Medicine; Referring Provider Physician Assistant Medical; Visit Provider Internal Medicine
DX: Z12.5 Encounter for screening for malignant neoplasm of prostate (principal); R97.20 Elevated prostate specific antigen [PSA]; N18.31 Chronic kidney disease, stage 3a; E78.00 Pure hypercholesterolemia, unspecified
CPT/HCPCS: 36415; 80053; 80061; 82607; 82746; 83735; 84153; 84439; 84443; 85025